=== PATIENT | female | born 1985 | race Caucasian/White ===

== ENCOUNTER 2017-08-10 09:48 | Emergency (ER) | payer OTHER ==
[~2017-08-10] VITALS: Ht 162.6 cm; Wt 107.5 kg
[~2017-08-10 09:48] MED LIST: METF500T4 PO; NITR-58 PO
[2017-08-10 09:55] VITALS: Ht 162.6 cm; Wt 107.5 kg
--- NOTE | 2017-08-10 11:15 | ERD ---
ER Documentation Chief Complaint Chief Complaint left foot wound, after removing callous x 1 week HPI Otherwise healthy 32-year-old female presents with a chief complaints of left lateral foot wound 1 week. States she has no medical conditions. Recently got a primary care provider. States that has been draining yellow fluid without being able to quantify amount. States it also smells. Denies any loss of motion, numbness, tingling, other RPND, similar symptoms in past or sick contacts. Has not taken any medications to relieve the symptoms. Patient has no other complaints and describes no other associated manifestations. Nursing notes have been reviewed and are consistent with history given. ROS All systems reviewed and are negative except as per history of present illness. Medications Home Meds Active Scripts Cephalexin* (Keflex*) 500 Mg Capsule, 500 MG PO QID for 5 Days, CAP Prov:CASSIE LEWIS PA-C 08/10/17 Sulfamethoxazole/Trimethoprim* (Bactrim Ds* Tablet) 1 Each Tablet, 1 TAB PO BID , #14 TAB Prov:CASSIE LEWIS PA-C 08/10/17 Nitrofurantoin Monohyd Macrocr* (Macrobid*) 100 Mg Capsr, 100 MG PO BID for 5 Days, CAP Prov:YESICA BANEGAS. 03/21/15 Metformin* (Glucophage*) 500 Mg Tab, 500 MG PO BID, #20 TAB Prov:YESICA BANEGAS. 03/21/15 Allergies Allergies: Coded Allergies: ibuprofen (Verified Allergy, Unknown, 08/10/17) PMhx/Soc Hx Alcohol Use: Yes (occassional) Hx Substance Use: No Hx Tobacco Use: No Physical Exam Vitals Vital Signs Date Time Temp Pulse Resp B/P Pulse Ox O2 Delivery O2 Flow Rate FiO2 08/10/17 09:55 99.6 118 18 185/88 99 Physical Exam Const: Morbidly obese 32-year-old female no acute distress Head: Atraumatic Eyes: Normal Conjunctiva ENT: Normal External Ears, Nose and Mouth. Neck: Full range of motion..~ No meningismus. Resp: Clear to auscultation bilaterally Cardio: Regular rate and rhythm, no murmurs Abd: Soft, non tender, non distended. Normal bowel sounds Back: No midline or flank tenderness Ext: Black ulcer over the lateral left foot near the MTP. Anterior subcutaneous tissue. Most consistent with diabetic foot ulcer. Yellow drainage. Neur: Awake and alert Psych: Normal Mood and Affect Procedures/MDM 32-year-old female is in today with a chief complaint of ulcer on the left lateral foot near the MTP. X-ray of the site was obtained revealed no evidence of osteomyelitis. No signs of spreading infection. Spoke to my attending who agreed outpatient management with Bactrim and Keflex as most appropriate. Patient will also be referred to amputation prevention center. I have spoke with the patient regarding their condition and future management. They have verbally responded that they understand their status and treatment plan. The patients vitals are stable, and their current condition is appropriate for discharge. The patient will be given discharge instructions with return precautions. Departure Diagnosis: Primary Impression: Diabetic ulcer of foot associated with type 2 diabetes mellitus, limited to breakdown of skin Diabetic foot ulcer location: midfoot Laterality: left Qualified Code: E11.621 - Diabetic ulcer of left midfoot associated with type 2 diabetes mellitus, limited to breakdown of skin Condition: Stable Additional Instructions: Make appointment with amputation prevention center in the next day. Follow up with your PCP within the next 1-3 days for a more thorough evaluation and a possible referral to a specialist. Return the the emergency department immediately if symptoms worsen or change. If you have any questions regarding medications, ask your pharmacist or us before you leave. If any adverse reactions occur while taking your medications, discontinue the treatment and return to the emergency department immediately. Take your medications as directed, and complete the entire course of treatment. CASSIE LEWIS PA-C Aug 10, 2017 11:15
[2017-08-10] MEDS ORDERED: SULF1TAB31 PO (12:32)
[2017-08-10] MEDS ORDERED: CEPH-443 PO (12:32)
--- NOTE | 2017-08-10 12:39 | RADRPT ---
PROCEDURE: XR Left Foot CLINICAL INDICATION: The plantar are surface all certain air fifth MTP TECHNIQUE: AP, oblique, and lateral radiographs were submitted. COMPARISON: None FINDINGS: Osseous structures: appear well mineralized and intact with no fracture or destructive process iden tified. There is a small spur off the calcaneus at the insertion of the plantar aponeurosis. Joint spaces: are well maintained, with no significant spurring, erosion or joint effusion evident. Soft tissues: There is an ulceration with subcutaneous air seen about the distal left fifth metatars al head and proximal phalanx of the left fifth toe. There is dorsal soft tissue swelling. IMPRESSION: 1. Ulceration with subcutaneous air seen in the soft tissues about the distal left fifth metatarsal head and about the proximal phalanx of the left fifth toe. There is considerable dorsal soft tissue swelling. 2. No osseous destruction is identified to suggest osteomyelitis. 3. The joint spaces appear unremarkable 4. See mild calcaneal spurring Physician Megan Date Time Electronically viewed and signed by Physician Megan on 08/10/2017 12:39 /
[2017-08-10 13:28] VITALS: BP 154/68; PULSE 81; RESP 20; TEMP 98.9
== END 2017-08-10 13:28 | disposition home or self-care (01) ==
LOC: FTE 09:48
DX: E11.621 Type 2 diabetes mellitus with foot ulcer (principal); Z79.84 Long term (current) use of oral hypoglycemic drugs

== ENCOUNTER 2017-09-11 12:20 | Emergency (ER) | payer OTHER ==
[~2017-09-11] VITALS: Wt 107.2 kg
[~2017-09-11 12:20] MED LIST changes: +CEPH-443 PO; +SULF1TAB31 PO
[2017-09-11] MEDS ORDERED: LIDOCAINE 1% (MPF) 5 ML VIAL SC ONE (12:30)
--- NOTE | 2017-09-11 12:56 | RADRPT ---
PROCEDURE: XR Chest. CLINICAL INDICATION: PICC line placement TECHNIQUE: Single frontal view of the chest was obtained COMPARISON: None FINDINGS: There is a new right-sided PICC line in place with its tip overlying the mid right subclavian vein r egion.. There is mild cardiomegaly. There is no focal infiltrate. There is no pneumothorax. RPTAT: AA IMPRESSION: New PICC line with its tip overlying the right mid subclavian vein region. Mild cardiomegaly. .Carlos Alberto Durán MD, MD Date Time Electronically viewed and signed by .Carlos Alberto Durán MD, MD on 09/11/2017 12:56 .S/
--- NOTE | 2017-09-11 14:37 | RADRPT ---
PROCEDURE: XR Chest. CLINICAL INDICATION: Check PICC line position. TECHNIQUE: Single frontal view. COMPARISON: 09/11/2017. FINDINGS: There is a right arm PICC line with the tip in the mid superior vena cava. This should be advanced 3 cm. The lungs are clear. The heart is mildly enlarged. There is no pleural effusion. There is no pneumothorax. IMPRESSION: 1. Right arm PICC line tip in the mid superior vena cava. This should be advanced 3 cm. Results giv en to the PICC line nurse. 2. Cardiomegaly. 3. Otherwise normal chest radiograph. RPTAT: QQ .Ronn Tobias MD, MD Date Time Electronically viewed and signed by .Ronn Tobias MD, on 09/11/2017 14:37 .R/
--- NOTE | 2017-09-11 14:45 | RADRPT ---
PROCEDURE: XR Chest. CLINICAL INDICATION: Check PICC line position. The PICC line has been repositioned from the prior study. TECHNIQUE: Single frontal view. COMPARISON: Prior study done earlier the same day. FINDINGS: There is a right arm PICC line with the tip in the lower superior vena cava. The lungs are clear. The heart is mildly enlarged. There is no pleural effusion. There is no pneumothorax. IMPRESSION: 1. Right arm PICC line tip in satisfactory position. 2. Mild cardiomegaly. 3. Otherwise normal chest radiograph. RPTAT: QQ .Ronn Tobias MD, MD Date Time Electronically viewed and signed by .Ronn Tobias MD, MD on 09/11/2017 14:44 .R/
--- NOTE | 2017-09-11 15:10 | ERD ---
ER Documentation Chief Complaint Chief Complaint HERE FOR PICC LINE CHECK . NOT WORKING. POSSIBLE NEEDS REPLACEMENT. HPI Patient is a 32-year-old female who has a PICC line which is not functioning. The patient has a right upper extremity PICC line which was not withdrawing blood. This started yesterday. She was sent to the ER by the visiting nurse. She is currently getting antibiotics for a foot gangrene and has 3 weeks out of 6 weeks completed. She has no other complaints. ROS All systems reviewed and are negative except as per history of present illness. Medications Home Meds Active Scripts Cephalexin* (Keflex*) 500 Mg Capsule, 500 MG PO QID for 5 Days, CAP Prov:CASISE LEWIS PA-C 08/10/17 Sulfamethoxazole/Trimethoprim* (Bactrim Ds* Tablet) 1 Each Tablet, 1 TAB PO BID , #14 TAB Prov:CASSIE LEWIS PA-C 08/10/17 Nitrofurantoin Monohyd Macrocr* (Macrobid*) 100 Mg Capsr, 100 MG PO BID for 5 Days, CAP Prov:YESICA BANEGAS. 03/21/15 Metformin* (Glucophage*) 500 Mg Tab, 500 MG PO BID, #20 TAB Prov:YESICA BANEGAS M. 03/21/15 Allergies Allergies: Coded Allergies: ibuprofen (Verified Allergy, Unknown, 08/10/17) PMhx/Soc Hx Alcohol Use: Yes (occassional) Hx Substance Use: No Hx Tobacco Use: No FmHx Family History: diabetes Physical Exam Vitals Vital Signs Date Time Temp Pulse Resp B/P Pulse Ox O2 Delivery O2 Flow Rate FiO2 09/11/17 12:23 97.5 82 16 141/78 99 Physical Exam Const: No acute distress Head: Atraumatic Eyes: Normal Conjunctiva ENT: Normal External Ears, Nose and Mouth. Neck: Full range of motion..~ No meningismus. Resp: Clear to auscultation bilaterally Cardio: Regular rate and rhythm, no murmurs Abd: Soft, non tender, non distended. Normal bowel sounds Skin: No petechiae or rashes Back: No midline or flank tenderness Ext: PICC line in the right upper extremity Neur: Awake and alert Psych: Normal Mood and Affect Results 24 hrs Current Medications Medications (Trade) Dose Ordered Sig/Stella Route PRN Reason Start Time Stop Time Status Last Admin Dose Admin Lidocaine (Xylocaine 1% (Mpf)) 5 ml ONCE ONCE SC 09/11/17 12:30 09/11/17 12:31 DC Procedures/MDM PICC line was replaced by the PICC nurse. Patient is a 32-year-old female who presents with a PICC line which is nonfunctioning. X-ray showed that the PICC line was in the axillary area. The PICC line nurse replaced the line over a wire. The patient now has a successfully placed PICC line and will be discharged. She can return for any worsening symptoms. Departure Diagnosis: Primary Impression: Occluded PICC line Encounter type: initial encounter Qualified Code: T82.898A - Occlusion of peripherally inserted central catheter (PICC) line, initial encounter Condition: Fair Patient Instructions: Picc Line Care Referrals: Your doctor Additional Instructions: Call your primary care doctor TOMORROW for an appointment during the next 1 WEEK.Tell the social secretary that you were referred from this facility.See the doctor sooner or return here if your condition worsens before your appointment time. PATIENCE CALVERT MD Sep 11, 2017 15:10
[2017-09-11 16:24] VITALS: BP 135/72; PULSE 70; RESP 18; TEMP 98.1
== END 2017-09-11 16:24 | disposition home or self-care (01) ==
LOC: E/R 12:20
DX: T82.898A Other specified complication of vascular prosthetic devices, implants and grafts, initial encounter (principal); R07.9 Chest pain, unspecified; Y82.8 Other medical devices associated with adverse incidents; Z79.84 Long term (current) use of oral hypoglycemic drugs
CPT/HCPCS: 36569; 71010; 93005; 99284; C1769

== ENCOUNTER 2017-11-07 16:18 | Day surgery (SDC) | END 2017-11-07 21:35 | disposition home or self-care (01) ==

== ENCOUNTER 2019-02-22 20:56 | Inpatient (IN) | payer OTHER ==
[~2019-02-22] VITALS: Ht 160 cm; Wt 109.5 kg
[~2019-02-22 20:56] MED LIST changes: +AMLO-147 PO; -CEPH-443 PO; +CLON0.2T12 PERCUTANE; +CLON0.2T5 PO; +FERR1GRA MC; +FURO40TA4 PO; +GLIP2.5T14 PO; +HYDR-3672 PO; +HYDR-4011 PO; +LEVO250T9 PO; -METF500T4 PO; +METO-448 PO; -NITR-58 PO; -SULF1TAB31 PO
[2019-02-22] MEDS ORDERED: METOCLOPRAMIDE 10 MG INJ IV STA (23:09)
[2019-02-22] MEDS ORDERED: morphine 4 MG/ML VIAL IV STA (23:09)
[2019-02-22] MEDS ORDERED: FAMOTIDINE 20 MG INJ IV STA (23:09)
[2019-02-22] MEDS ORDERED: SOD CHLORIDE 0.9% 1,000 ML IV STA (23:09)
[2019-02-23] MEDS ORDERED: SODIUM CHLORIDE 0.9% 1L BAG IV* STA (01:18)
[2019-02-23] MEDS ORDERED: PIPER-TAZO 3.375 GM IV (PMX) 100 ML IVPB STA (01:18)
--- NOTE | 2019-02-23 02:49 | ERD ---
ER Documentation Chief Complaint Chief Complaint nausea/vomiting epigastric pain x2days; unable to take bp medication HPI 34-year-old female with a history of hypertension, CKD stage IV, and diabetes presenting with complaints of epigastric and right upper quadrant pain for the past 2 days. The pain has been constant, aching, nonradiating, associated with nonbloody and nonbilious vomiting. Currently she rates her pain at a 8 out of 10. She denies any diarrhea or constipation. No melena or hematochezia. No associated fevers or chills. No alleviating or exacerbating factors. ROS All systems reviewed and are negative except as per history of present illness. Medications Home Meds Reported Medications Sodium Bicarbonate (Antacid) 650 Mg Tablet, 650 MG PO TID, TAB 02/23/19 Clonidine Patch (CLONIDINE PATCH) 0.2 Mg/24 Hr Patch, 1 PATCH.WK TD Q7D, #4 PATCH.WK 02/23/19 Furosemide* (Furosemide*) 40 Mg Tablet, 40 MG PO DAILY, TAB 02/23/19 Folic Acid* (Folic Acid*) 1 Mg Tablet, 1 MG PO DAILY, TAB 02/23/19 Ergocalciferol (Vitamin D2) (VITAMIN D2) 50,000 Unit Capsule, 74967 UNIT PO Q7D, CAP 02/23/19 Glipizide* (Glipizide ER*) 2.5 Mg Tab.er.24, 2.5 MG PO DAILY, TAB 02/23/19 Hydralazine Hcl* (Hydralazine Hcl*) 100 Mg Tablet, 100 MG PO Q8, #90 TAB 02/23/19 Lisinopril* (Lisinopril*) 2.5 Mg Tablet, 2.5 MG PO DAILY, #30 TAB 02/23/19 Metoprolol Tartrate* (Lopressor*) 50 Mg Tab, 50 MG PO BID, #60 TAB 02/23/19 Discontinued Reported Medications Clonidine Hcl* (Catapres*) 0.2 Mg Tablet, 0.2 MG PERCUTANE DAILY, TAB 11/07/17 Clonidine Hcl* (Clonidine Hcl*) 0.2 Mg Tablet, 0.2 MG PO Q8, TAB 11/07/17 Amlodipine Besylate* (Amlodipine Besylate*) 10 Mg Tablet, 10 MG PO DAILY, #30 TAB 11/07/17 Glipizide XL* (Glipizide XL*) 2.5 Mg Tab.er.24, 2.5 MG PO DAILY, TAB 11/07/17 Hydralazine Hcl* (Hydralazine Hcl*) 50 Mg Tab, 50 MG PO Q8 PRN for prn, #90 TAB 11/07/17 Ferric Sulfate (FERRIC SULFATE) 1 Gm Granules, 325 MG MC TID 11/07/17 Levofloxacin* (Levofloxacin*) 250 Mg Tablet, 250 MG PO DAILY, TAB 11/07/17 Hydrocodone/Acetaminophen ([place] 5-325 Tablet) 1 Each Tablet, 1 EACH PO Q6H PRN for prn, TAB 11/07/17 Furosemide* (Furosemide*) 40 Mg Tablet, 40 MG PO DAILY, TAB 11/07/17 Metoprolol Tartrate* (Lopressor*) 25 Mg Tab, 25 MG PO BID, #60 TAB 11/07/17 Allergies Allergies: Coded Allergies: ibuprofen (Unverified Allergy, Unknown, 02/23/19) PMhx/Soc History of Surgery: Yes Anesthesia Reaction: No Hx Neurological Disorder: No Hx Respiratory Disorders: No Hx Cardiac Disorders: Yes (htn) Hx Psychiatric Problems: No Hx Miscellaneous Medical Probl: Yes (anemia, diabetes type 2, stage 4 chronic kidney ds) Hx Alcohol Use: No Hx Substance Use: No Hx Tobacco Use: No Smoking Status: Never smoker FmHx Noncontributory Physical Exam Vitals Vital Signs Date Temp Pulse Resp B/P (MAP) Pulse Ox O2 O2 Flow FiO2 Time Delivery Rate 02/23/19 201/104 98 Room Air 02:49 (136) 02/23/19 108 197/102 98 Room Air 02:00 (133) 02/23/19 107 203/101 98 Room Air 01:40 (135) 02/23/19 99.0 102 200/107 98 Room Air 01:00 (138) 02/23/19 103 204/101 98 Room Air 00:00 (135) 02/22/19 99.1 107 22 224/113 97 21:35 (150) Physical Exam Const: No acute distress Head: Atraumatic Eyes: Normal Conjunctiva ENT: Dry mucous membranes. Normal External Ears, Nose and Mouth. Neck: Full range of motion. No meningismus. Resp: Clear to auscultation bilaterally Cardio: Regular rate and rhythm, no murmurs Abd: Epigastric and right upper quadrant tenderness to palpation with positive Wilkes's. Soft,non distended. Normal bowel sounds Skin: No petechiae or rashes Back: No midline or flank tenderness Ext: No cyanosis, or edema Neur: Awake and alert Psych: Normal Mood and Affect Result Diagram: 02/24/19 0543 02/24/19 0543 Results 24 hrs Laboratory Tests Test 02/22/19 22:57 02/22/19 23:10 02/23/19 01:36 White Blood Count 13.7 10^3/ul Red Blood Count 4.56 10^6/ul Hemoglobin 12.3 g/dl Hematocrit 37.9 % Mean Corpuscular Volume 83.1 fl Mean Corpuscular Hemoglobin 27.0 pg Mean Corpuscular 32.5 g/dl Hemoglobin Concent Red Cell Distribution Width 21.8 % Platelet Count 470 10^3/UL Mean Platelet Volume 10.7 fl Immature Granulocytes % 0.300 % Neutrophils % 86.1 % Lymphocytes % 6.9 % Monocytes % 6.0 % Eosinophils % 0.0 % Basophils % 0.7 % Nucleated Red Blood Cells % 0.0 /100WBC Immature Granulocytes # 0.040 10^3/ul Neutrophils # 11.8 10^3/ul Lymphocytes # 0.9 10^3/ul Monocytes # 0.8 10^3/ul Eosinophils # 0.0 10^3/ul Basophils # 0.1 10^3/ul Nucleated Red Blood Cells # 0.0 10^3/ul Sodium Level 142 mmol/L Potassium Level 4.4 mmol/L Chloride Level 108 mmol/L Carbon Dioxide Level 27 mmol/L Anion Gap 7 Blood Urea Nitrogen 32 mg/dl Creatinine 3.26 mg/dl Est Glomerular Filtrat Rate mL/min 16 mL/min Glucose Level 141 mg/dl Calcium Level 9.2 mg/dl Total Bilirubin 0.3 mg/dl Direct Bilirubin 0.00 mg/dl Indirect Bilirubin 0.3 mg/dl Aspartate Amino Transf (AST/SGOT) 50 IU/L Alanine 50 IU/L Aminotransferase (ALT/SGPT) Alkaline Phosphatase 140 IU/L Troponin I 0.047 ng/ml Total Protein 6.9 g/dl Albumin 3.6 g/dl Globulin 3.30 g/dl Albumin/Globulin Ratio 1.09 Lipase 86 U/L Bedside Urine pH (LAB) 8.5 Bedside Urine Protein (LAB) 3+ Bedside Urine Glucose (UA) 0.50% Bedside Urine Ketones (LAB) 1+ Bedside Urine Blood 3+ Bedside Urine Nitrite (LAB) Negative Bedside Urine Leukocyte Esterase Negative (L POC Venous Lactate 0.7 mmol/L Current Medications Medications Dose Sig/Stella Start Time Status Last (Trade) Ordered Route PRN Stop Time Admin Dose Reason Admin Sodium 1,000 ml @ Q1H STAT 02/22/19 DC 02/22/19 Chloride 1,000 mls/hr IV 23:09 23:29 02/23/19 00:08 Morphine 4 mg ONCE STAT 02/22/19 DC 02/22/19 Sulfate IV 23: 23:29 (morphine) 02/22/19 23:13 10 mg ONCE STAT 02/22/19 DC 02/22/19 Metoclopramid IV 23: 23:29 e HCl 02/22/19 23:13 (Reglan) Famotidine 20 mg ONCE STAT 02/22/19 DC 02/22/19 (Pepcid Iv) IV 23:09 23:29 02/22/19 23:14 Sodium 570 ml BOLUS OVER 2 02/23/19 DC 02/23/19 Chloride HOURS STAT 01:18 01:43 (NS) IV* 02/23/19 01:20 Piperacillin 100 ml @ ONCE STAT 02/23/19 DC 02/23/19 Sod/ 200 mls/hr IVPB 01:18 01:43 Tazobactam 02/23/19 01:47 Sod Procedures/MDM EMERGENT LABS AND DIAGNOSTIC STUDIES: Lab Results above were reviewed and interpreted by me. CBC: Mild leukocytosis and thrombocytosis, concerning for infection CMP: Elevated BUN and creatinine, consistent with chronic kidney disease. No evidence of clinically significant electrolyte abnormality, acidosis, hypoglycemia, liver disease, or biliary obstruction Lipase: no evidence of pancreatitis UA: no evidence of infection 12-lead EKG was interpreted by Mickey Miguel MD: Normal Sinus Rhythm Normal axis Normal intervals No acute ST or T wave changes suggestive of acute ischemia or STEMI. Radiology Results as interpreted by Radiology below were reviewed by Marc Miguel MD: Ultrasound right upper quadrant: Evidence of cholelithiasis with possible cholecystitis Initial Nursing notes reviewed. Previous Medical Records requested via the Electronic Health Record. EMERGENCY DEPARTMENT COURSE / MEDICAL DECISION MAKING: Patient is presenting with epigastric and right upper quadrant pain with associated vomiting for the past few days. This is less likely gastroenteritis that she has no diarrhea. Differential does include cholelithiasis, acute cholecystitis, pancreatitis, colitis, or gastritis. Doubt bowel obstruction or perforated viscus. Patient was noted to be very hypertensive for which IV antihypertensives were given. Her work-up was concerning for possible acute cholecystitis. I spoke with the surgeon on-call, Dr. Tena, who agreed to see the patient. Patient will be admitted for surgical consult and hypertension control. Of note patient did meet Sirs criteria and possible sepsis was recognized at 0118. However lactate was ordered and was within normal limits. No evidence of severe sepsis or septic shock. Patient did receive IV fluids, IV antibiotics. Departure Diagnosis: Primary Impression: Epigastric abdominal pain Additional Impressions: Nausea and vomiting Vomiting type: unspecified Vomiting Intractability: non-intractable Qualified Codes: R11.2 - Nausea with vomiting, unspecified CKD (chronic kidney disease) Chronic kidney disease stage: stage 4 (severe) Qualified Codes: N18.4 - Chronic kidney disease, stage 4 (severe) Condition: Serious ERICKSON MIGUEL MD February 23, 2019 02:49
[2019-02-23] MEDS ORDERED: LABETALOL HCL 20MG INJ IV ONE ×2 (03:00→06:00)
[2019-02-23] MEDS ORDERED: ACETAMINOPHEN 325 MG TAB PO PRN (03:00)
[2019-02-23] MEDS: ONDANSETRON 4 MG INJ IV PRN ×4 (03:27→19:15)
[2019-02-23] MEDS ORDERED: DEXTROSE 5%-0.45% NACL 1,000 ML IV SCH (03:39)
[2019-02-23] MEDS ORDERED: morphine 4 MG/ML VIAL IV STA (03:43)
[2019-02-23] MEDS ORDERED: NACL 0.9% 3 ML SYG IV SCH (04:00)
[2019-02-23] MEDS ORDERED: GLUCAGON 1 MG INJ IM PRN ×2 (04:00→09:00)
[2019-02-23] MEDS ORDERED: DEXTROSE 50% 50 ML SYRINGE IV PRN ×4 (04:00→09:00)
[2019-02-23] MEDS ORDERED: GLUCOSE GEL 15 GRAM TUBE PO PRN ×4 (04:00→09:00)
[2019-02-23] MEDS ORDERED: GLUCOSE GEL 15 GRAM TUBE BUCCAL PRN ×2 (04:00→09:00)
[2019-02-23] MEDS ORDERED: ACETAMINOPHEN 650 MG SUPP PR PRN (04:00)
[2019-02-23] MEDS ORDERED: ALBUTEROL/IPRATROPIUM (NEB) 3 ML AMP HHN PRN (04:00)
[2019-02-23] MEDS ORDERED: PIPER-TAZO 3.375 GM IV (PMX) 100 ML IVPB SCH (04:00)
[2019-02-23] MEDS ORDERED: morphine 2 MG INJ IV PRN (04:00)
[2019-02-23] MEDS ORDERED: hydrALAzine 20 MG INJ IV ONE ×2 (04:00→06:00)
--- NOTE | 2019-02-23 05:45 | HP ---
Date/Time of Note Date/Time of Note DATE: 02/23/19 TIME: 05:40 Assessment/Plan VTE Prophylaxis SCD applied (from Nsg): Yes Pharmacological prophylaxis: NA/contraindicated Pharm contraindication: other (Awaiting possible laparoscopic cholecystectomy) Lines/Catheters IV Catheter Type (from Nrsg): Saline Lock Assessment/Plan Assessment/Plan 1. Cholelithiasis with possible cholecystitis -IV antibiotic -Consider HIDA -Awaiting surgical evaluation 2. Hypertensive urgency: Patient was unable to keep her medications down because of vomiting. -Will continue IV antihypertensives. If unable to control, she will be placed on drip and admitted to ICU 3. SIRS, tachycardia: Secondary to above 4. Presumed acute on CKD: Patient states she was diagnosed with kidney disease 2 years ago. Because for the past few days she has been vomiting again unable to eat, I am suspecting acute on chronic -Continue IV fluid -If no improvement in a.m., will obtain renal ultrasound and nephrology consult 5. Type 2 diabetes: Check A1c. Insulin while in-house 6. Left fifth toe amputation secondary to osteomyelitis: No acute issue Result Diagram: 02/22/19225602/22/197 Results 24hrs Laboratory Tests Test 02/22/19 22:57 02/22/19 23:10 02/23/19 01:36 02/23/19 03:59 White Blood Count 13.7 H Red Blood Count 4.56 Hemoglobin 12.3 Hematocrit 37.9 Mean Corpuscular 83.1 Volume Mean Corpuscular 27.0 L Hemoglobin Mean Corpuscular 32.5 Hemoglobin Concent Red Cell 21.8 #H Distribution Width Platelet Count 470 H Mean Platelet Volume 10.7 H Immature 0.300 Granulocytes % Neutrophils % 86.1 H Lymphocytes % 6.9 L Monocytes % 6.0 Eosinophils % 0.0 Basophils % 0.7 Nucleated Red Blood 0.0 Cells % Immature 0.040 H Granulocytes # Neutrophils # 11.8 H Lymphocytes # 0.9 Monocytes # 0.8 Eosinophils # 0.0 Basophils # 0.1 Nucleated Red Blood 0.0 Cells # Sodium Level 142 Potassium Level 4.4 Chloride Level 108 Carbon Dioxide Level 27 Anion Gap 7 Blood Urea Nitrogen 32 H Creatinine 3.26 H Est Glomerular 16 L Filtrat Rate mL/min Glucose Level 141 Calcium Level 9.2 Total Bilirubin 0.3 Direct Bilirubin 0.00 Indirect Bilirubin 0.3 Aspartate Amino 50 H Transf (AST/SGOT) Alanine 50 Aminotransferase (AL T/SGPT) Alkaline Phosphatase 140 H Troponin I 0.047 Total Protein 6.9 Albumin 3.6 Globulin 3.30 H Albumin/Globulin 1.09 Ratio Lipase 86 Bedside Urine pH 8.5 7.5 (LAB) Bedside Urine 3+ H 3+ H Protein (LAB) Bedside Urine 0.50% H 0.25% H Glucose (UA) Bedside Urine 1+ H Trace H Ketones (LAB) Bedside Urine Blood 3+ H 2+ H Bedside Urine Negative Negative Nitrite (LAB) Bedside Urine Negative Negative Leukocyte Esterase (L POC Venous Lactate 0.7 HPI/ROS Admit Date/Time Admit Date/Time Hx of Present Illness Patient is a 34-year-old female with a history of hypertension, type 2 diabetes who presented to ER complaining of abdominal pain and nausea/vomiting. Pain is mainly localized in the epigastric area. Symptoms been going on for the past 2- 3 days. She was unable to eat because of vomiting, with emesis described as nonbloody nonbilious. Since presented to ER, blood pressure has been persistently severely elevated, despite intervention. WBC almost 14,000. Liver chemistries within acceptable range. Abdominal ultrasound shows Cholelithiasis and findings compatible with acute cholecystitis PMH/Family/Social Past Medical History Medical History: other (See HPI) Medications Current Medications Ondansetron HCl (Zofran Inj) 4 mg BRIDGE ORDER PRN IV NAUSEA/VOMITING Last administered on 02/23/19at 03:27; Admin Dose 4 MG; Start 02/23/19 at 03:00; Stop 02/24/19 at 02:59 Acetaminophen (Tylenol Tab) 650 mg ER BRIDGE PRN PO .MILD PAIN 1-3 OR TEMP; Start 02/23/19 at 03:00; Stop 02/24/19 at 02:59 Dextrose/Sodium Chloride 1,000 ml @ 100 mls/hr Q10H IV Last administered on 02/23/19at 04:09; Admin Dose 100 MLS/HR; Start 02/23/19 at 03:39 IV Flush (NS 3 ml) 3 ml PER PROTOCOL IV ; Start 02/23/19 at 04:00 Ondansetron HCl (Zofran Inj) 4 mg Q6H PRN IV NAUSEA/VOMITING; Start 02/23/19 at 04:00 Acetaminophen (Tylenol Supp) 650 mg Q6H PRN NM .PAIN 1-3 OR TEMP; Start 02/23/19 at 04:00 Morphine Sulfate (morphine) 2 mg Q4H PRN IV .SEVERE PAIN 7-10; Start 02/23/19 at 04:00 Albuterol/ Ipratropium (Duoneb) 3 ml Q2H RESP THERAPY PRN HHN SHORTNESS OF BREATH; Start 02/23/19 at 04:00 Hydralazine HCl (Apresoline) 10 mg Q4H PRN IV SBP > 160; Start 02/23/19 at 04:00 Piperacillin Sod/ Tazobactam Sod 50 ml @ 100 mls/hr Q8 IVPB ; Start 02/23/19 at 06:00 Diagnostic Test (Pha) (Accu-Chek) 1 ea 02 XX ; Start 02/24/19 at 02:00 Insulin Aspart (Novolog Insulin Pen) NOVOLOG *MILD* ALGORITHM WITH MEALS BEDTIME SC ; Start 02/23/19 at 08:00 Miscellaneous Information 1 ea NOTE XX ; Start 02/23/19 at 04:00 Glucose (Glutose) 15 gm Q15M PRN PO DECREASED GLUCOSE; Start 02/23/19 at 04:00 Glucose (Glutose) 22.5 gm Q15M PRN PO DECREASED GLUCOSE; Start 02/23/19 at 04:00 Dextrose (D50w Syringe) 25 ml Q15M PRN IV DECREASED GLUCOSE; Start 02/23/19 at 04:00 Dextrose (D50w Syringe) 50 ml Q15M PRN IV DECREASED GLUCOSE; Start 02/23/19 at 04:00 Glucagon (Glucagen) 1 mg Q15M PRN IM DECREASED GLUCOSE; Start 02/23/19 at 04:00 Glucose (Glutose) 15 gm Q15M PRN BUCCAL DECREASED GLUCOSE; Start 02/23/19 at 04:00 Coded Allergies: ibuprofen (Unverified Allergy, Unknown, 02/23/19) Past Surgical History Past Surgical Hx: other (See HPI) Family History Significant Family History: no pertinent family hx Social History Alcohol Use: none Smoking Status: Never smoker Drug Use: none Exam/Review of Systems Vital Signs Vitals Vital Signs Date Temp Pulse Resp B/P (MAP) Pulse Ox O2 O2 Flow FiO2 Time Delivery Rate 02/23/19 201/104 98 Room Air 02:49 (136) 02/23/19 108 02:00 02/23/19 99.0 01:00 02/22/19 22 21:35 Exam Constitutional: alert, oriented, well developed Head: normocephalic, atraumatic Eyes: EOMI, PERRL Respiratory: clear to auscultation, normal air movement Cardiovascular: other (Tachycardic regular rhythm) Gastrointestinal: soft, other (Minimal tenderness in the right upper quadrant and epigastric area. No guarding, no rebound tenderness, no rigidity) Extremities: normal pulses STACIE BENNETT MD February 23, 2019 05:45
[2019-02-23] MEDS ORDERED: LABETALOL HCL 20MG INJ IV PRN (06:00)
[2019-02-23] MEDS: PIPER-TAZO 2.25 GM (PMX) 50 ML IVPB SCH ×3 (06:48→22:21)
[2019-02-23] MEDS ORDERED: INSULIN ASPART [NOVOLOG] 3 ML PEN SC SCH (08:00)
--- NOTE | 2019-02-23 08:43 | PN ---
Date/Time of Note Date/Time of Note DATE: 02/23/19 TIME: 08:38 Assessment/Plan VTE Prophylaxis SCD applied (from Nsg): Yes Pharmacological prophylaxis: heparin Lines/Catheters IV Catheter Type (from Nrsg): Saline Lock Assessment/Plan Problems: (1) SIRS (systemic inflammatory response syndrome) Status: Acute Comment: On antibiotics and being driven by gallbladder stuff (2) Acute cholecystitis Status: Acute Comment: At this time a surgical consultation. We will go ahead and order the HIDA scan so that we will be trying to maximize her efficiency with the patient's time. She is on aggressive antibiotic therapy at this time and is clinically modestly better. Please note that this presentation was consistent w ith systemic inflammatory response syndrome (3) Hypertension Status: Chronic Comment: Patient was recently placed on lisinopril but she has been able to take this due to her nausea and vomiting. Can go ahead and use IV enalapril at this time to help control the blood pressure. Qualifiers: Hypertension type: essential hypertension Qualified Codes: I10 - Essential (primary) hypertension (4) Anemia Status: Chronic Comment: Check for iron deficiency Qualifiers: Anemia type: unspecified type Qualified Codes: D64.9 - Anemia, unspecified (5) Diabetes mellitus type 2 in obese Status: Chronic Comment: O2 and insulin sliding scale while the patient's in the hospital. Please note the usage of the glipizide and the patient with renal insufficiency can be a little bit aggressive (6) Kidney disease, chronic, stage IV (GFR 15-29 ml/min) Status: Chronic Comment: Noted. (7) Morbid obesity with BMI of 40.0-44.9, adult Status: Chronic Comment: N.p.o. for now ultimately be on a calorie restriction diet Result Diagram: 02/23/19 0538 02/23/19 0537 Results 24hrs Laboratory Tests Test 02/22/19 22:57 02/22/19 23:10 02/23/19 01:36 02/23/19 03:59 White Blood Count 13.7 H Red Blood Count 4.56 Hemoglobin 12.3 Hematocrit 37.9 Mean Corpuscular 83.1 Volume Mean Corpuscular 27.0 L Hemoglobin Mean Corpuscular 32.5 Hemoglobin Concent Red Cell 21.8 #H Distribution Width Platelet Count 470 H Mean Platelet Volume 10.7 H Immature 0.300 Granulocytes % Neutrophils % 86.1 H Lymphocytes % 6.9 L Monocytes % 6.0 Eosinophils % 0.0 Basophils % 0.7 Nucleated Red Blood 0.0 Cells % Immature 0.040 H Granulocytes # Neutrophils # 11.8 H Lymphocytes # 0.9 Monocytes # 0.8 Eosinophils # 0.0 Basophils # 0.1 Nucleated Red Blood 0.0 Cells # Sodium Level 142 Potassium Level 4.4 Chloride Level 108 Carbon Dioxide Level 27 Anion Gap 7 Blood Urea Nitrogen 32 H Creatinine 3.26 H Est Glomerular 16 L Filtrat Rate mL/min Glucose Level 141 Calcium Level 9.2 Total Bilirubin 0.3 Direct Bilirubin 0.00 Indirect Bilirubin 0.3 Aspartate Amino 50 H Transf (AST/SGOT) Alanine 50 Aminotransferase (AL T/SGPT) Alkaline Phosphatase 140 H Troponin I 0.047 Total Protein 6.9 Albumin 3.6 Globulin 3.30 H Albumin/Globulin 1.09 Ratio Lipase 86 Bedside Urine pH 8.5 7.5 (LAB) Bedside Urine 3+ H 3+ H Protein (LAB) Bedside Urine 0.50% H 0.25% H Glucose (UA) Bedside Urine 1+ H Trace H Ketones (LAB) Bedside Urine Blood 3+ H 2+ H Bedside Urine Negative Negative Nitrite (LAB) Bedside Urine Negative Negative Leukocyte Esterase (L POC Venous Lactate 0.7 Test 02/23/19 05:37 02/23/19 05:38 Sodium Level 140 Potassium Level 3.8 Chloride Level 112 H Carbon Dioxide Level 22 Anion Gap 6 Blood Urea Nitrogen 28 H Creatinine 2.69 H Est Glomerular 20 L Filtrat Rate mL/min Glucose Level 230 H Calcium Level 7.7 L Phosphorus Level 4.7 Magnesium Level 1.8 Total Bilirubin 0.2 Direct Bilirubin 0.00 Indirect Bilirubin 0.2 Aspartate Amino 40 Transf (AST/SGOT) Alanine 43 Aminotransferase (AL T/SGPT) Alkaline Phosphatase 99 Total Protein 5.4 #L Albumin 2.6 #L Globulin 2.80 Albumin/Globulin 0.92 Ratio Triglycerides Level 118 Cholesterol Level 170 LDL Cholesterol, 103 Calculated HDL Cholesterol 43 Cholesterol/HDL 3.9 Ratio White Blood Count 12.7 H Red Blood Count 3.69 L Hemoglobin 10.0 L Hematocrit 31.2 L Mean Corpuscular 84.6 Volume Mean Corpuscular 27.1 L Hemoglobin Mean Corpuscular 32.1 Hemoglobin Concent Red Cell 21.4 H Distribution Width Platelet Count 386 Mean Platelet Volume 11.0 H Immature 0.600 H Granulocytes % Neutrophils % 84.3 H Lymphocytes % 8.3 L Monocytes % 6.0 Eosinophils % 0.1 Basophils % 0.7 Nucleated Red Blood 0.0 Cells % Immature 0.070 H Granulocytes # Neutrophils # 10.7 H Lymphocytes # 1.1 Monocytes # 0.8 Eosinophils # 0.0 Basophils # 0.1 Nucleated Red Blood 0.0 Cells # Hemoglobin A1c 5.6 Subjective 24 Hr Interval Summary Free Text/Dictation Angelica young female seen in the emergency room who reports that she is feeling better. Please note she identifies that she is at the very tail end of her menstrual cycle at this time. Her primary care physician is Dr. Lula Saab of [facility], she sees a petrologist Dr. Laura Escalona. Constitutional: no complaints (No fevers chills or sweats) Eyes: no complaints Cardiovascular: no complaints Gastrointestinal: pain (Upper quadrant pain has improved with analgesia), nausea (Nausea has diminished) Genitourinary: no complaints Skin: no complaints Exam/Review of Systems Exam Vitals Vital Signs Date Temp Pulse Resp B/P (MAP) Pulse Ox O2 O2 Flow FiO2 Time Delivery Rate 02/23/19 98.2 91 18 155/79 99 Room Air 08:00 (104) Constitutional: alert, oriented Neck: supple, non-tender Respiratory: clear to auscultation, normal air movement Cardiovascular: regular rate and rhythm, nl pulses Gastrointestinal: soft, nl liver, spleen (No right upper quadrant tenderness after IV analgesia), bowel sounds (Hypoactive bowel sounds) Extremities: normal pulses Results Results 24hrs Laboratory Tests Test 02/22/19 22:57 02/22/19 23:10 02/23/19 01:36 02/23/19 03:59 White Blood Count 13.7 H Red Blood Count 4.56 Hemoglobin 12.3 Hematocrit 37.9 Mean Corpuscular 83.1 Volume Mean Corpuscular 27.0 L Hemoglobin Mean Corpuscular 32.5 Hemoglobin Concent Red Cell 21.8 #H Distribution Width Platelet Count 470 H Mean Platelet Volume 10.7 H Immature 0.300 Granulocytes % Neutrophils % 86.1 H Lymphocytes % 6.9 L Monocytes % 6.0 Eosinophils % 0.0 Basophils % 0.7 Nucleated Red Blood 0.0 Cells % Immature 0.040 H Granulocytes # Neutrophils # 11.8 H Lymphocytes # 0.9 Monocytes # 0.8 Eosinophils # 0.0 Basophils # 0.1 Nucleated Red Blood 0.0 Cells # Sodium Level 142 Potassium Level 4.4 Chloride Level 108 Carbon Dioxide Level 27 Anion Gap 7 Blood Urea Nitrogen 32 H Creatinine 3.26 H Est Glomerular 16 L Filtrat Rate mL/min Glucose Level 141 Calcium Level 9.2 Total Bilirubin 0.3 Direct Bilirubin 0.00 Indirect Bilirubin 0.3 Aspartate Amino 50 H Transf (AST/SGOT) Alanine 50 Aminotransferase (AL T/SGPT) Alkaline Phosphatase 140 H Troponin I 0.047 Total Protein 6.9 Albumin 3.6 Globulin 3.30 H Albumin/Globulin 1.09 Ratio Lipase 86 Bedside Urine pH 8.5 7.5 (LAB) Bedside Urine 3+ H 3+ H Protein (LAB) Bedside Urine 0.50% H 0.25% H Glucose (UA) Bedside Urine 1+ H Trace H Ketones (LAB) Bedside Urine Blood 3+ H 2+ H Bedside Urine Negative Negative Nitrite (LAB) Bedside Urine Negative Negative Leukocyte Esterase (L POC Venous Lactate 0.7 Test 02/23/19 05:37 02/23/19 05:38 Sodium Level 140 Potassium Level 3.8 Chloride Level 112 H Carbon Dioxide Level 22 Anion Gap 6 Blood Urea Nitrogen 28 H Creatinine 2.69 H Est Glomerular 20 L Filtrat Rate mL/min Glucose Level 230 H Calcium Level 7.7 L Phosphorus Level 4.7 Magnesium Level 1.8 Total Bilirubin 0.2 Direct Bilirubin 0.00 Indirect Bilirubin 0.2 Aspartate Amino 40 Transf (AST/SGOT) Alanine 43 Aminotransferase (AL T/SGPT) Alkaline Phosphatase 99 Total Protein 5.4 #L Albumin 2.6 #L Globulin 2.80 Albumin/Globulin 0.92 Ratio Triglycerides Level 118 Cholesterol Level 170 LDL Cholesterol, 103 Calculated HDL Cholesterol 43 Cholesterol/HDL 3.9 Ratio White Blood Count 12.7 H Red Blood Count 3.69 L Hemoglobin 10.0 L Hematocrit 31.2 L Mean Corpuscular 84.6 Volume Mean Corpuscular 27.1 L Hemoglobin Mean Corpuscular 32.1 Hemoglobin Concent Red Cell 21.4 H Distribution Width Platelet Count 386 Mean Platelet Volume 11.0 H Immature 0.600 H Granulocytes % Neutrophils % 84.3 H Lymphocytes % 8.3 L Monocytes % 6.0 Eosinophils % 0.1 Basophils % 0.7 Nucleated Red Blood 0.0 Cells % Immature 0.070 H Granulocytes # Neutrophils # 10.7 H Lymphocytes # 1.1 Monocytes # 0.8 Eosinophils # 0.0 Basophils # 0.1 Nucleated Red Blood 0.0 Cells # Hemoglobin A1c 5.6 Medications Medication Current Medications Ondansetron HCl (Zofran Inj) 4 mg BRIDGE ORDER PRN IV NAUSEA/VOMITING Last administered on 02/23/19at 07:32; Admin Dose 4 MG; Start 02/23/19 at 03:00; Stop 02/24/19 at 02:59 Acetaminophen (Tylenol Tab) 650 mg ER BRIDGE PRN PO .MILD PAIN 1-3 OR TEMP; Start 02/23/19 at 03:00; Stop 02/24/19 at 02:59 Dextrose/Sodium Chloride 1,000 ml @ 100 mls/hr Q10H IV Last administered on 02/23/19at 04:09; Admin Dose 100 MLS/HR; Start 02/23/19 at 03:39 IV Flush (NS 3 ml) 3 ml PER PROTOCOL IV ; Start 02/23/19 at 04:00 Ondansetron HCl (Zofran Inj) 4 mg Q6H PRN IV NAUSEA/VOMITING; Start 02/23/19 at 04:00 Acetaminophen (Tylenol Supp) 650 mg Q6H PRN OR .PAIN 1-3 OR TEMP; Start 02/23/19 at 04:00 Morphine Sulfate (morphine) 2 mg Q4H PRN IV .SEVERE PAIN 7-10; Start 02/23/19 at 04:00 Albuterol/ Ipratropium (Duoneb) 3 ml Q2H RESP THERAPY PRN HHN SHORTNESS OF BREATH; Start 02/23/19 at 04:00 Hydralazine HCl (Apresoline) 10 mg Q4H PRN IV SBP > 160; Start 02/23/19 at 04:00 Piperacillin Sod/ Tazobactam Sod 50 ml @ 100 mls/hr Q8 IVPB Last administered on 02/23/19at 06:48; Admin Dose 100 MLS/HR; Start 02/23/19 at 06:00 Diagnostic Test (Pha) (Accu-Chek) 1 ea 02 XX ; Start 02/24/19 at 02:00 Insulin Aspart (Novolog Insulin Pen) NOVOLOG *MILD* ALGORITHM WITH MEALS BEDTIME SC ; Start 02/23/19 at 08:00 Miscellaneous Information 1 ea NOTE XX ; Start 02/23/19 at 04:00 Glucose (Glutose) 15 gm Q15M PRN PO DECREASED GLUCOSE; Start 02/23/19 at 04:00 Glucose (Glutose) 22.5 gm Q15M PRN PO DECREASED GLUCOSE; Start 02/23/19 at 04:00 Dextrose (D50w Syringe) 25 ml Q15M PRN IV DECREASED GLUCOSE; Start 02/23/19 at 04:00 Dextrose (D50w Syringe) 50 ml Q15M PRN IV DECREASED GLUCOSE; Start 02/23/19 at 04:00 Glucagon (Glucagen) 1 mg Q15M PRN IM DECREASED GLUCOSE; Start 02/23/19 at 04:00 Glucose (Glutose) 15 gm Q15M PRN BUCCAL DECREASED GLUCOSE; Start 02/23/19 at 04:00 Labetalol HCl (Labetalol) 20 mg Q2H PRN IV SBP > 170; Start 02/23/19 at 06:00 DONOVAN DOVER MD February 23, 2019 08:43
[2019-02-23] MEDS: LACTATED RINGER'S 1,000 ML IV SCH ×2 (08:53→21:30)
[2019-02-23] MEDS: ENALAPRILAT 1.25 MG INJ IV SCH ×3 (08:54→22:20)
[2019-02-23] MEDS: INSULIN GLARGINE [LANTus] (100 UNITS/ML) SYG SC SCH (09:25)
[2019-02-23] MEDS: ACCU-CHEK XX SCH ×4 (09:25→20:41)
[2019-02-23] MEDS ORDERED: LISI2.5T59 PO (10:08)
[2019-02-23] MEDS ORDERED: METO-429 PO (10:08)
[2019-02-23] MEDS ORDERED: GLIP2.5T3 PO (10:09)
[2019-02-23] MEDS ORDERED: HYDR100T25 PO (10:09)
[2019-02-23] MEDS ORDERED: ERGO500013 PO (10:10)
[2019-02-23] MEDS ORDERED: FOLI-49 PO (10:10)
[2019-02-23] MEDS ORDERED: FURO40TA4 PO (10:10)
[2019-02-23] MEDS ORDERED: CLON1PAT2 TD (10:11)
[2019-02-23] MEDS ORDERED: SODI650T PO (10:11)
[2019-02-23] MEDS: hydrALAzine 20 MG INJ IV PRN ×2 (11:35→20:39)
[2019-02-23] MEDS: INSULIN ASPART [NOVOLOG] 3 ML PEN SC SCH ×5 (12:00→20:44)
[2019-02-23 13:26] VITALS: Ht 160 cm; Wt 109.5 kg
[2019-02-23 13:30] VITALS: BP 179/87; PULSE 109; RESP 18
--- NOTE | 2019-02-23 19:53 | CONS ---
Assessment/Plan Assessment/Plan Hospital Course (Demo Recall) 1. Cholelithiasis with questionable cholecystitis (no pericholecystic fluid, no gallbladder wall edema). HIDA negative for cholecystitis but positive for CBD obstruction -GI consult for ERCP -Antibiotics -N.p.o. -IV fluids Thank you very much for consulting me this patient's care, Consultation Date/Type/Reason Admit Date/Time Date of Consultation: February 23, 2019 Date/Time of Note DATE: 02/23/19 TIME: 19:52 Past Medical History Medical History: other (See HPI) Home Meds Reported Medications Sodium Bicarbonate (Antacid) 650 Mg Tablet, 650 MG PO TID, TAB 02/23/19 Clonidine Patch (CLONIDINE PATCH) 0.2 Mg/24 Hr Patch, 1 PATCH.WK TD Q7D, #4 PATCH.WK 02/23/19 Furosemide* (Furosemide*) 40 Mg Tablet, 40 MG PO DAILY, TAB 02/23/19 Folic Acid* (Folic Acid*) 1 Mg Tablet, 1 MG PO DAILY, TAB 02/23/19 Ergocalciferol (Vitamin D2) (VITAMIN D2) 50,000 Unit Capsule, 66910 UNIT PO Q7D, CAP 02/23/19 Glipizide* (Glipizide ER*) 2.5 Mg Tab.er.24, 2.5 MG PO DAILY, TAB 02/23/19 Hydralazine Hcl* (Hydralazine Hcl*) 100 Mg Tablet, 100 MG PO Q8, #90 TAB 02/23/19 Lisinopril* (Lisinopril*) 2.5 Mg Tablet, 2.5 MG PO DAILY, #30 TAB 02/23/19 Metoprolol Tartrate* (Lopressor*) 50 Mg Tab, 50 MG PO BID, #60 TAB 02/23/19 Discontinued Reported Medications Clonidine Hcl* (Catapres*) 0.2 Mg Tablet, 0.2 MG PERCUTANE DAILY, TAB 11/07/17 Clonidine Hcl* (Clonidine Hcl*) 0.2 Mg Tablet, 0.2 MG PO Q8, TAB 11/07/17 Amlodipine Besylate* (Amlodipine Besylate*) 10 Mg Tablet, 10 MG PO DAILY, #30 TAB 11/07/17 Glipizide XL* (Glipizide XL*) 2.5 Mg Tab.er.24, 2.5 MG PO DAILY, TAB 11/07/17 Hydralazine Hcl* (Hydralazine Hcl*) 50 Mg Tab, 50 MG PO Q8 PRN for prn, #90 TAB 11/07/17 Ferric Sulfate (FERRIC SULFATE) 1 Gm Granules, 325 MG MC TID 11/07/17 Levofloxacin* (Levofloxacin*) 250 Mg Tablet, 250 MG PO DAILY, TAB 11/07/17 Hydrocodone/Acetaminophen ([place] 5-325 Tablet) 1 Each Tablet, 1 EACH PO Q6H PRN for prn, TAB 11/07/17 Furosemide* (Furosemide*) 40 Mg Tablet, 40 MG PO DAILY, TAB 11/07/17 Metoprolol Tartrate* (Lopressor*) 25 Mg Tab, 25 MG PO BID, #60 TAB 11/07/17 Medications Current Medications IV Flush (NS 3 ml) 3 ml PER PROTOCOL IV ; Start 02/23/19 at 04:00 Ondansetron HCl (Zofran Inj) 4 mg Q6H PRN IV NAUSEA/VOMITING Last administered on 02/23/19at 19:15; Admin Dose 4 MG; Start 02/23/19 at 04:00 Acetaminophen (Tylenol Supp) 650 mg Q6H PRN [place] .PAIN 1-3 OR TEMP; Start 02/23/19 at 04:00 Morphine Sulfate (morphine) 2 mg Q4H PRN IV .SEVERE PAIN 7-10 Last administered on 02/23/19at 19:47; Admin Dose 2 MG; Start 02/23/19 at 04:00 Albuterol/ Ipratropium (Duoneb) 3 ml Q2H RESP THERAPY PRN HHN SHORTNESS OF BREATH; Start 02/23/19 at 04:00 Hydralazine HCl (Apresoline) 10 mg Q4H PRN IV SBP > 160 Last administered on 02/23/19at 11:35; Admin Dose 10 MG; Start 02/23/19 at 04:00 Piperacillin Sod/ Tazobactam Sod 50 ml @ 100 mls/hr Q8 IVPB Last administered on 02/23/19at 13:37; Admin Dose 100 MLS/HR; Start 02/23/19 at 06:00 Miscellaneous Information 1 ea NOTE XX ; Start 02/23/19 at 04:00 Glucose (Glutose) 15 gm Q15M PRN PO DECREASED GLUCOSE; Start 02/23/19 at 04:00 Glucose (Glutose) 22.5 gm Q15M PRN PO DECREASED GLUCOSE; Start 02/23/19 at 04:00 Glucagon (Glucagen) 1 mg Q15M PRN IM DECREASED GLUCOSE; Start 02/23/19 at 04:00 Glucose (Glutose) 15 gm Q15M PRN BUCCAL DECREASED GLUCOSE; Start 02/23/19 at 04:00 Labetalol HCl (Labetalol) 20 mg Q2H PRN IV SBP > 170; Start 02/23/19 at 06:00 Enalaprilat (Vasotec Iv) 0.625 mg Q8 IV Last administered on 02/23/19at 16:31; Admin Dose 0.625 MG; Start 02/23/19 at 09:00 Diagnostic Test (Pha) (Accu-Chek) 1 ea 02 XX ; Start 02/24/19 at 02:00 Diagnostic Test (Pha) (Accu-Chek) 1 ea 2 HOURS AFTER MEALS XX Last adm inistered on 02/23/19at 09:25; Admin Dose 1 EA; Start 02/23/19 at 10:00 Insulin Glargine (Lantus) 6 units DAILY@0800 SC Last administered on 02/23/19at 09:25; Admin Dose 6 UNITS; Start 02/23/19 at 09:00 Insulin Aspart (Novolog Insulin Pen) 3 unit WITH MEALS SC ; Start 02/23/19 at 12:00 Insulin Aspart (Novolog Insulin Pen) NOVOLOG *MILD* ALGORITHM WITH MEALS BEDTIME SC ; Start 02/23/19 at 12:00 Lactated Ringer's 1,000 ml @ 80 mls/hr [id number] IV Last administered on 02/23/19at 08:53; Admin Dose 80 MLS/HR; Start 02/23/19 at 09:00 Miscellaneous Information 1 ea NOTE XX ; Start 02/23/19 at 09:00 Dextrose (D50w Syringe) 25 ml Q15M PRN IV DECREASED GLUCOSE; Start 02/23/19 at 09:00 Dextrose (D50w Syringe) 50 ml Q15M PRN IV DECREASED GLUCOSE; Start 02/23/19 at 09:00 Allergies: Coded Allergies: ibuprofen (Unverified Allergy, Unknown, 02/23/19) Past Surgical History Past Surgical Hx: other (See HPI) Social History Alcohol Use: none Smoking Status: Never smoker Drug Use: none Exam/Review of Systems Exam Vitals Vital Signs Date Temp Pulse Resp B/P (MAP) Pulse Ox O2 O2 Flow FiO2 Time Delivery Rate 02/23/19 97.5 109 18 179/87 96 13:30 (117) 02/23/19 Room Air 12:21 Results Result Diagram: 02/23/19 0538 02/23/19 0537 Results 24hrs Laboratory Tests Test 02/22/19 22:57 02/22/19 23:10 02/23/19 01:36 02/23/19 03:59 White Blood Count 13.7 H Red Blood Count 4.56 Hemoglobin 12.3 Hematocrit 37.9 Mean Corpuscular 83.1 Volume Mean Corpuscular 27.0 L Hemoglobin Mean Corpuscular 32.5 Hemoglobin Concent Red Cell 21.8 #H Distribution Width Platelet Count 470 H Mean Platelet Volume 10.7 H Immature 0.300 Granulocytes % Neutrophils % 86.1 H Lymphocytes % 6.9 L Monocytes % 6.0 Eosinophils % 0.0 Basophils % 0.7 Nucleated Red Blood 0.0 Cells % Immature 0.040 H Granulocytes # Neutrophils # 11.8 H Lymphocytes # 0.9 Monocytes # 0.8 Eosinophils # 0.0 Basophils # 0.1 Nucleated Red Blood 0.0 Cells # Sodium Level 142 Potassium Level 4.4 Chloride Level 108 Carbon Dioxide Level 27 Anion Gap 7 Blood Urea Nitrogen 32 H Creatinine 3.26 H Est Glomerular 16 L Filtrat Rate mL/min Glucose Level 141 Calcium Level 9.2 Total Bilirubin 0.3 Direct Bilirubin 0.00 Indirect Bilirubin 0.3 Aspartate Amino 50 H Transf (AST/SGOT) Alanine 50 Aminotransferase (AL T/SGPT) Alkaline Phosphatase 140 H Troponin I 0.047 Total Protein 6.9 Albumin 3.6 Globulin 3.30 H Albumin/Globulin 1.09 Ratio Lipase 86 Bedside Urine pH 8.5 7.5 (LAB) Bedside Urine 3+ H 3+ H Protein (LAB) Bedside Urine 0.50% H 0.25% H Glucose (UA) Bedside Urine 1+ H Trace H Ketones (LAB) Bedside Urine Blood 3+ H 2+ H Bedside Urine Negative Negative Nitrite (LAB) Bedside Urine Negative Negative Leukocyte Esterase (L POC Venous Lactate 0.7 Test 02/23/19 05:36 02/23/19 05:37 02/23/19 05:38 02/23/19 09:21 Iron Level 38 Total Iron Binding 192 L Capacity Percent Iron 20 L Saturation Hepatitis A Antibody POSITIVE H Total Hepatitis B Surface NEGATIVE Antigen Hepatitis B Surface NEGATIVE Antibody Hepatitis C Antibody NEGATIVE Sodium Level 140 Potassium Level 3.8 Chloride Level 112 H Carbon Dioxide Level 22 Anion Gap 6 Blood Urea Nitrogen 28 H Creatinine 2.69 H Est Glomerular 20 L Filtrat Rate mL/min Glucose Level 230 H Calcium Level 7.7 L Phosphorus Level 4.7 Magnesium Level 1.8 Total Bilirubin 0.2 Direct Bilirubin 0.00 Indirect Bilirubin 0.2 Aspartate Amino 40 Transf (AST/SGOT) Alanine 43 Aminotransferase (AL T/SGPT) Alkaline Phosphatase 99 Total Protein 5.4 #L Albumin 2.6 #L Globulin 2.80 Albumin/Globulin 0.92 Ratio Triglycerides Level 118 Cholesterol Level 170 LDL Cholesterol, 103 Calculated HDL Cholesterol 43 Cholesterol/HDL 3.9 Ratio White Blood Count 12.7 H Red Blood Count 3.69 L Hemoglobin 10.0 L Hematocrit 31.2 L Mean Corpuscular 84.6 Volume Mean Corpuscular 27.1 L Hemoglobin Mean Corpuscular 32.1 Hemoglobin Concent Red Cell 21.4 H Distribution Width Platelet Count 386 Mean Platelet Volume 11.0 H Immature 0.600 H Granulocytes % Neutrophils % 84.3 H Lymphocytes % 8.3 L Monocytes % 6.0 Eosinophils % 0.1 Basophils % 0.7 Nucleated Red Blood 0.0 Cells % Immature 0.070 H Granulocytes # Neutrophils # 10.7 H Lymphocytes # 1.1 Monocytes # 0.8 Eosinophils # 0.0 Basophils # 0.1 Nucleated Red Blood 0.0 Cells # Hemoglobin A1c 5.6 Bedside Glucose 126 Test 02/23/19 16:29 02/23/19 18:26 Bedside Glucose 113 102 Medications Medication Current Medications IV Flush (NS 3 ml) 3 ml PER PROTOCOL IV ; Start 02/23/19 at 04:00 Ondansetron HCl (Zofran Inj) 4 mg Q6H PRN IV NAUSEA/VOMITING Last administered on 02/23/19at 19:15; Admin Dose 4 MG; Start 02/23/19 at 04:00 Acetaminophen (Tylenol Supp) 650 mg Q6H PRN [place] .PAIN 1-3 OR TEMP; Start 02/23/19 at 04:00 Morphine Sulfate (morphine) 2 mg Q4H PRN IV .SEVERE PAIN 7-10 Last administered on 02/23/19at 19:47; Admin Dose 2 MG; Start 02/23/19 at 04:00 Albuterol/ Ipratropium (Duoneb) 3 ml Q2H RESP THERAPY PRN HHN SHORTNESS OF BREATH; Start 02/23/19 at 04:00 Hydralazine HCl (Apresoline) 10 mg Q4H PRN IV SBP > 160 Last administered on 02/23/19at 11:35; Admin Dose 10 MG; Start 02/23/19 at 04:00 Piperacillin Sod/ Tazobactam Sod 50 ml @ 100 mls/hr Q8 IVPB Last administered on 02/23/19 13:37; Admin Dose 100 MLS/HR; Start 02/23/19 at 06:00 Miscellaneous Information 1 ea NOTE XX ; Start 02/23/19 at 04:00 Glucose (Glutose) 15 gm Q15M PRN PO DECREASED GLUCOSE; Start 02/23/19 at 04:00 Glucose (Glutose) 22.5 gm Q15M PRN PO DECREASED GLUCOSE; Start 02/23/19 at 04:00 Glucagon (Glucagen) 1 mg Q15M PRN IM DECREASED GLUCOSE; Start 02/23/19 at 04:00 Glucose (Glutose) 15 gm Q15M PRN BUCCAL DECREASED GLUCOSE; Start 02/23/19 at 04:00 Labetalol HCl (Labetalol) 20 mg Q2H PRN IV SBP > 170; Start 02/23/19 at 06:00 Enalaprilat (Vasotec Iv) 0.625 mg Q8 IV Last administered on 02/23/19at 16:31; Admin Dose 0.625 MG; Start 02/23/19 at 09:00 Diagnostic Test (Pha) (Accu-Chek) 1 ea 02 XX ; Start 02/24/19 at 02:00 Diagnostic Test (Pha) (Accu-Chek) 1 ea 2 HOURS AFTER MEALS XX Last administered on 02/23/19at 09:25; Admin Dose 1 EA; Start 02/23/19 at 10:00 Insulin Glargine (Lantus) 6 units DAILY@0800 SC Last administered on 02/23/19at 09:25; Admin Dose 6 UNITS; Start 02/23/19 at 09:00 Insulin Aspart (Novolog Insulin Pen) 3 unit WITH MEALS SC ; Start 02/23/19 at 12:00 Insulin Aspart (Novolog Insulin Pen) NOVOLOG *MILD* ALGORITHM WITH MEALS BEDTIME SC ; Start 02/23/19 at 12:00 Lactated Ringer's 1,000 ml @ 80 mls/hr [id number] IV Last administered on 09/03at 08:53; Admin Dose 80 MLS/HR; Start 02/23/19 at 09:00 Miscellaneous Information 1 ea NOTE XX ; Start 02/23/19 at 09:00 Dextrose (D50w Syringe) 25 ml Q15M PRN IV DECREASED GLUCOSE; Start 02/23/19 at 09:00 Dextrose (D50w Syringe) 50 ml Q15M PRN IV DECREASED GLUCOSE; Start 02/23/19 at 09:00 MARYSE CERVANTES MD February 23, 2019 19:53
[2019-02-23 20:19] VITALS: BP 201/93; PULSE 98; RESP 18
[2019-02-23 21:45] VITALS: BP 182/85; PULSE 103; RESP 18
[2019-02-23 22:38] VITALS: BP 178/85
[2019-02-23 23:22] VITALS: BP 175/81; PULSE 91
[2019-02-24] VITALS (12 sets, daily range): BP systolic 162–192; BP diastolic 82–94; PULSE 76–103; RESP 18–20
[2019-02-24] MEDS ORDERED: INSULIN ASPART [NOVOLOG] 3 ML PEN SC SCH (01:00)
[2019-02-24] MEDS: Insulin NOVOLOG SS MILD Algorithm (NPO/TPN/ENTERAL FEEDS) SC SCH ×6 (01:00→20:18)
[2019-02-24] MEDS: ACCU-CHEK XX SCH ×4 (01:03→20:00)
[2019-02-24] MEDS: ONDANSETRON 4 MG INJ IV PRN (01:10)
[2019-02-24] MEDS: hydrALAzine 20 MG INJ IV PRN ×2 (01:13→08:02)
[2019-02-24] MEDS ORDERED: ACCU-CHEK XX SCH (02:00)
[2019-02-24] MEDS: LACTATED RINGER'S 1,000 ML IV SCH ×3 (05:12→21:30)
[2019-02-24] MEDS: PIPER-TAZO 2.25 GM (PMX) 50 ML IVPB SCH ×3 (06:26→21:26)
[2019-02-24] MEDS: ENALAPRILAT 1.25 MG INJ IV SCH ×3 (06:28→21:31)
[2019-02-24] MEDS: INSULIN GLARGINE [LANTus] (100 UNITS/ML) SYG SC SCH ×2 (08:00→09:07)
[2019-02-24] MEDS: INSULIN ASPART [NOVOLOG] 3 ML PEN SC SCH ×3 (08:00→17:40)
--- NOTE | 2019-02-24 09:09 | PN ---
Date/Time of Note Date/Time of Note DATE: 02/24/19 TIME: 09:06 Assessment/Plan VTE Prophylaxis Risk score (from Ns)>0 risk: 1 SCD applied (from Ns): Yes SCD contraindicated: low risk/ambulating Pharmacological prophylaxis: heparin Pharm contraindication: low risk/ambulating Lines/Catheters IV Catheter Type [facility]from [facility]): Peripheral IV Assessment/Plan Problems: (1) SIRS (systemic inflammatory response syndrome) Status: Acute Comment: Improving with administration of antibiotics. (2) Acute cholecystitis Status: Acute Comment: The HIDA scan was not normal not as it did not show any movement of tracer into the intestine. I am ordering an MRCP to further delineate this. We may need GI consult for ERCP procedure (3) Diabetes mellitus type 2 in obese Status: Chronic Comment: Adequate glycemic control. Please note I am not using the oral sulfonylurea agent in the hospital and I am using an insulin based protocol to avoid any possibility of secretagogue induced hypoglycemia (4) Kidney disease, chronic, stage IV (GFR 15-29 ml/min) Status: Chronic Comment: In 2014 this young lady had normal renal function. She reports in 2 years ago when admitted at [facility] she was told of abnormal renal function. She reports that this is progressively worsened over the last 2 years and she is under the care of a charter bus driver as delineated my last progress note, Dr. Aguayo. (5) Hypertension Status: Chronic Comment: Increase AVELINA inhibitor dosing. Qualifiers: Hypertension type: essential hypertension Qualified Codes: I10 - Essential (primary) hypertension (6) Morbid obesity with BMI of 40.0-44.9, adult Status: Chronic Comment: Presently calorie restriction diet (7) Anemia Status: Chronic Comment: Modest iron deficiency. We will go ahead and give her 1 dose of IV iron Qualifiers: Anemia type: unspecified type Qualified Codes: D64.9 - Anemia, unspecified Result Diagram: 02/24/19 0543 02/24/19 0543 Results 24hrs Laboratory Tests Test 02/23/19 09:21 02/23/19 16:29 02/23/19 18:26 02/23/19 20:43 Bedside Glucose 126 113 102 101 Test 02/24/19 00:59 02/24/19 05:10 02/24/19 05:43 02/24/19 07:59 Bedside Glucose 94 85 80 White Blood Count 12.6 H Red Blood Count 3.67 L Hemoglobin 10.1 L Hematocrit 31.1 L Mean Corpuscular 84.7 Volume Mean Corpuscular 27.5 L Hemoglobin Mean Corpuscular 32.5 Hemoglobin Concent Red Cell 22.0 H Distribution Width Platelet Count 381 Mean Platelet Volume 11.4 H Immature 0.600 H Granulocytes % Neutrophils % 80.1 H Lymphocytes % 9.9 L Monocytes % 8.5 Eosinophils % 0.1 Basophils % 0.8 Nucleated Red Blood 0.0 Cells % Immature 0.070 H Granulocytes # Neutrophils # 10.1 H Lymphocytes # 1.2 Monocytes # 1.1 H Eosinophils # 0.0 Basophils # 0.1 Nucleated Red Blood 0.0 Cells # Sodium Level 143 Potassium Level 3.8 Chloride Level 114 H Carbon Dioxide Level 22 Anion Gap 7 Blood Urea Nitrogen 33 H Creatinine 3.49 H Est Glomerular 15 L Filtrat Rate mL/min Glucose Level 88 # Calcium Level 8.1 L Phosphorus Level 5.6 H Magnesium Level 2.0 Subjective 24 Hr Interval Summary Free Text/Dictation Patient reports her GI tract feels little bit better when she would like to try some ice chips and water. Constitutional: no complaints (No fevers chills or sweats) Respiratory: no complaints Cardiovascular: no complaints Gastrointestinal: pain, nausea Genitourinary: no complaints Exam/Review of Systems Exam Vitals Vital Signs Date Temp Pulse Resp B/P (MAP) Pulse Ox O2 O2 Flow FiO2 Time Delivery Rate 02/24/19 101 187/89 09:00 (121) 02/24/19 98.3 20 98 07:23 02/23/19 Room Air 12:21 Intake and Output 02/23/19 02/23/19 02/24/19 1515:00 23:00 07:00 IntakeIntake Total 500 ml 610 ml 490 ml BalanceBalance 500 ml 610 ml 490 ml Constitutional: alert, oriented Respiratory: clear to auscultation, normal air movement Cardiovascular: regular rate and rhythm, nl pulses Gastrointestinal: soft, nl liver, spleen, non-tender, bowel sounds (Sounds are active) Results Results 24hrs Laboratory Tests Test 02/23/19 09:21 02/23/19 16:29 02/23/19 18:26 02/23/19 20:43 Bedside Glucose 126 113 102 101 Test 02/24/19 00:59 02/24/19 05:10 02/24/19 05:43 02/24/19 07:59 Bedside Glucose 94 85 80 White Blood Count 12.6 H Red Blood Count 3.67 L Hemoglobin 10.1 L Hematocrit 31.1 L Mean Corpuscular 84.7 Volume Mean Corpuscular 27.5 L Hemoglobin Mean Corpuscular 32.5 Hemoglobin Concent Red Cell 22.0 H Distribution Width Platelet Count 381 Mean Platelet Volume 11.4 H Immature 0.600 H Granulocytes % Neutrophils % 80.1 H Lymphocytes % 9.9 L Monocytes % 8.5 Eosinophils % 0.1 Basophils % 0.8 Nucleated Red Blood 0.0 Cells % Immature 0.070 H Granulocytes # Neutrophils # 10.1 H Lymphocytes # 1.2 Monocytes # 1.1 H Eosinophils # 0.0 Basophils # 0.1 Nucleated Red Blood 0.0 Cells # Sodium Level 143 Potassium Level 3.8 Chloride Level 114 H Carbon Dioxide Level 22 Anion Gap 7 Blood Urea Nitrogen 33 H Creatinine 3.49 H Est Glomerular 15 L Filtrat Rate mL/min Glucose Level 88 # Calcium Level 8.1 L Phosphorus Level 5.6 H Magnesium Level 2.0 Medications Medication Current Medications IV Flush (NS 3 ml) 3 ml PER PROTOCOL IV ; Start 02/23/19 at 04:00 Ondansetron HCl (Zofran Inj) 4 mg Q6H PRN IV NAUSEA/VOMITING Last administered on 02/24/19at 01:10; Admin Dose 4 MG; Start 02/23/19 at 04:00 Acetaminophen (Tylenol Supp) 650 mg Q6H PRN [place] .PAIN 1-3 OR TEMP; Start 02/23/19 at 04:00 Morphine Sulfate (morphine) 2 mg Q4H PRN IV .SEVERE PAIN 7-10 Last administered on 02/23/19at 19:47; Admin Dose 2 MG; Start 02/23/19 at 04:00 Albuterol/ Ipratropium (Duoneb) 3 ml Q2H RESP THERAPY PRN HHN SHORTNESS OF BREATH; Start 02/23/19 at 04:00 Hydralazine HCl (Apresoline) 10 mg Q4H PRN IV SBP > 160 Last administered on 02/24/19at 08:02; Admin Dose 10 MG; Start 02/23/19 at 04:00 Piperacillin Sod/ Tazobactam Sod 50 ml @ 100 mls/hr Q8 IVPB Last administered on 02/24/19at 06:26; Admin Dose 100 MLS/HR; Start 02/23/19 at 06:00 Miscellaneous Information 1 ea NOTE XX ; Start 02/23/19 at 04:00 Glucose (Glutose) 15 gm Q15M PRN PO DECREASED GLUCOSE; Start 02/23/19 at 04:00 Glucose (Glutose) 22.5 gm Q15M PRN PO DECREASED GLUCOSE; Start 02/23/19 at 04:00 Glucagon (Glucagen) 1 mg Q15M PRN IM DECREASED GLUCOSE; Start 02/23/19 at 04:00 Glucose (Glutose) 15 gm Q15M PRN BUCCAL DECREASED GLUCOSE; Start 02/23/19 at 04:00 Labetalol HCl (Labetalol) 20 mg Q2H PRN IV SBP > 170; Start 02/23/19 at 06:00 Diagnostic Test (Pha) (Accu-Chek) 1 ea 02 XX ; Start 02/24/19 at 02:00 Diagnostic Test (Pha) (Accu-Chek) 1 ea 2 HOURS AFTER MEALS XX Last administered on 02/23/19at 20:41; Admin Dose 1 EA; Start 02/23/19 at 10:00 Insulin Glargine (Lantus) 6 units DAILY@0800 SC Last administered on 02/23/19at 09:25; Admin Dose 6 UNITS; Start 02/23/19 at 09:00 Insulin Aspart (Novolog Insulin Pen) 3 unit WITH MEALS SC ; Start 02/23/19 at 12:00 Lactated Ringer's 1,000 ml @ 80 mls/hr [id number] IV Last administered on 02/24/19at 05:12; Admin Dose 80 MLS/HR; Start 02/23/19 at 09:00 Miscellaneous Information 1 ea NOTE XX ; Start 02/23/19 at 09:00 Dextrose (D50w Syringe) 25 ml Q15M PRN IV DECREASED GLUCOSE; Start 02/23/19 at 09:00 Dextrose (D50w Syringe) 50 ml Q15M PRN IV DECREASED GLUCOSE; Start 02/23/19 at 09:00 Insulin Aspart (Novolog Insulin Pen) (Adult SC Insulin - Mild Algorithm)... Q4 SC ; Start 02/24/19 at 01:00 Enalaprilat (Vasotec Iv) 1.25 mg Q8 IV ; Start 02/24/19 at 14:00; Status DONOVAN LEMONS MD February 24, 2019 09:09
[2019-02-24] MEDS ORDERED: SOD FERRIC GLUC COMPLX 125 MG in SOD CHLORIDE 0.9% 100 ML IVPB ONE (09:30)
[2019-02-24] MEDS: METOPROLOL 50 MG TAB PO SCH ×2 (11:19→20:19)
[2019-02-24] MEDS ORDERED: ERGOCALCIFEROL 50,000 UNIT CAP PO SCH (12:30)
[2019-02-24] MEDS: CALCIUM CARBONATE 500 MG CHEW TAB PO SCH ×2 (13:00→17:54)
--- NOTE | 2019-02-24 13:40 | CONS ---
Assessment/Plan Assessment/Plan Assessment/Plan (Daily) Assessment: Cholelithiasis with possible common bile duct obstruction on HIDA scan -Abdominal US with acute cholecystitis -HIDA scan without acute cholecystis though concern for common bile duct obs truction Abdominal pain likely secondary to above Leukocytosis Diabetes type 2 HTN Anemia Plan: Will obtain MRCP for further characterization of HIDA scan findings, to evaluate for further choledocholithiasis or biliary obstruction. May need ERCP based on MRCP findings. Discussed with patient the benefits, alternatives, and risk, and she is agreeable to proceed. May plan for Monday or Monday. Continue IV antibiotics. Can have a clear liquid diet. Monitor LFT's and bilirubin. Patient seen in collaboration with Dr. Whitfield. CC: ANA M WHITFIELD MD ; Consultation Date/Type/Reason Admit Date/Time Date of Consultation: February 24, 2019 Type of Consult gastroenterology Reason for Consultation cholecystitis, possible common bile duct obstruction Requesting Provider: DONOVAN DOVER MD Date/Time of Note DATE: 02/24/19 TIME: 13:26 Hx of Present Illness Ms. Bowles is a 34 y/o woman with a history of hypertension, type 2 diabetes, anemia, osteomyelitis status post toe amputation, who is admitted for abdominal pain associated with nausea and vomiting. She repots she ate a chicken sandwich 3 days ago and developed nausea and vomiting with right upper quadrant abdominal pain. This did not resolve and she came to the emergency room where she was found to have leukocytosis with a WBC of 14k, abdominal US with findings of acute cholecystitis, and a HIDA scan which did not reveal cholecystitis though concern for common bile duct obstruction. She reports chills though no fevers. She reports lack of bowel movement since last Monday. She denies any chest pain or shortness of breath. She denies any prior history of upper endoscopy or colonoscopy. A 10 point review of systems is otherwise negative except as mentioned in the above HPI. Past Medical History Medical History: other (See HPI) Home Meds Reported Medications Sodium Bicarbonate (Antacid) 650 Mg Tablet, 650 MG PO TID, TAB 02/23/19 Clonidine Patch (CLONIDINE PATCH) 0.2 Mg/24 Hr Patch, 1 PATCH.WK TD Q7D, #4 PATCH.WK 02/23/19 Furosemide* (Furosemide*) 40 Mg Tablet, 40 MG PO DAILY, TAB 02/23/19 Folic Acid* (Folic Acid*) 1 Mg Tablet, 1 MG PO DAILY, TAB 02/23/19 Ergocalciferol (Vitamin D2) (VITAMIN D2) 50,000 Unit Capsule, 93190 UNIT PO Q7D, CAP 02/23/19 Glipizide* (Glipizide ER*) 2.5 Mg Tab.er.24, 2.5 MG PO DAILY, TAB 02/23/19 Hydralazine Hcl* (Hydralazine Hcl*) 100 Mg Tablet, 100 MG PO Q8, #90 TAB 02/23/19 Lisinopril* (Lisinopril*) 2.5 Mg Tablet, 2.5 MG PO DAILY, #30 TAB 02/23/19 Metoprolol Tartrate* (Lopressor*) 50 Mg Tab, 50 MG PO BID, #60 TAB 02/23/19 Discontinued Reported Medications Clonidine Hcl* (Catapres*) 0.2 Mg Tablet, 0.2 MG PERCUTANE DAILY, TAB 11/07/17 Clonidine Hcl* (Clonidine Hcl*) 0.2 Mg Tablet, 0.2 MG PO Q8, TAB 11/07/17 Amlodipine Besylate* (Amlodipine Besylate*) 10 Mg Tablet, 10 MG PO DAILY, #30 TAB 11/07/17 Glipizide XL* (Glipizide XL*) 2.5 Mg Tab.er.24, 2.5 MG PO DAILY, TAB 11/07/17 Hydralazine Hcl* (Hydralazine Hcl*) 50 Mg Tab, 50 MG PO Q8 PRN for prn, #90 TAB 11/07/17 Ferric Sulfate (FERRIC SULFATE) 1 Gm Granules, 325 MG MC TID 11/07/17 Levofloxacin* (Levofloxacin*) 250 Mg Tablet, 250 MG PO DAILY, TAB 11/07/17 Hydrocodone/Acetaminophen (Evergreen 5-325 Tablet) 1 Each Tablet, 1 EACH PO Q6H PRN for prn, TAB 11/07/17 Furosemide* (Furosemide*) 40 Mg Tablet, 40 MG PO DAILY, TAB 11/07/17 Metoprolol Tartrate* (Lopressor*) 25 Mg Tab, 25 MG PO BID, #60 TAB 11/07/17 Medications Current Medications IV Flush (NS 3 ml) 3 ml PER PROTOCOL IV ; Start 02/23/19 at 04:00 Ondansetron HCl (Zofran Inj) 4 mg Q6H PRN IV NAUSEA/VOMITING Last administered on 02/24/19at 01:10; Admin Dose 4 MG; Start 02/23/19 at 04:00 Acetaminophen (Tylenol Supp) 650 mg Q6H PRN [place] .PAIN 1-3 OR TEMP; Start 02/23/19 at 04:00 Morphine Sulfate (morphine) 2 mg Q4H PRN IV .SEVERE PAIN 7-10 Last administered on 02/23/19at 19:47; Admin Dose 2 MG; Start 02/23/19 at 04:00 Albuterol/ Ipratropium (Duoneb) 3 ml Q2H RESP THERAPY PRN HHN SHORTNESS OF BREATH; Start 02/23/19 at 04:00 Hydralazine HCl (Apresoline) 10 mg Q4H PRN IV SBP > 160 Last administered on 02/24/19at 08:02; Admin Dose 10 MG; Start 02/23/19 at 04:00 Piperacillin Sod/ Tazobactam Sod 50 ml @ 100 mls/hr Q8 IVPB Last administered on 02/24/19at 06:26; Admin Dose 100 MLS/HR; Start 02/23/19 at 06:00 Miscellaneous Information 1 ea NOTE XX ; Start 02/23/19 at 04:00 Glucose (Glutose) 15 gm Q15M PRN PO DECREASED GLUCOSE; Start 02/23/19 at 04:00 Glucose (Glutose) 22.5 gm Q15M PRN PO DECREASED GLUCOSE; Start 02/23/19 at 04:00 Glucagon (Glucagen) 1 mg Q15M PRN IM DECREASED GLUCOSE; Start 02/23/19 at 04:00 Glucose (Glutose) 15 gm Q15M PRN BUCCAL DECREASED GLUCOSE; Start 02/23/19 at 04:00 Labetalol HCl (Labetalol) 20 mg Q2H PRN IV SBP > 170; Start 02/23/19 at 06:00; Status Hold Diagnostic Test (Pha) (Accu-Chek) 1 ea 02 XX ; Start 02/24/19 at 02:00 Diagnostic Test (Pha) (Accu-Chek) 1 ea 2 HOURS AFTER MEALS XX Last administered on 02/23/19at 20:41; Admin Dose 1 EA; Start 02/23/19 at 10:00 Insulin Glargine (Lantus) 6 units DAILY@0800 SC Last administered on 02/24/19at 09:07; Admin Dose 6 UNITS; Start 02/23/19 at 09:00 Insulin Aspart (Novolog Insulin Pen) 3 unit WITH MEALS SC ; Start 02/23/19 at 12:00 Lactated Ringer's 1,000 ml @ 80 mls/hr [id number] IV Last administered on 02/24/19at 05:12; Admin Dose 80 MLS/HR; Start 02/23/19 at 09:00 Miscellaneous Information 1 ea NOTE XX ; Start 02/23/19 at 09:00 Dextrose (D50w Syringe) 25 ml Q15M PRN IV DECREASED GLUCOSE; Start 02/23/19 at 09:00 Dextrose (D50w Syringe) 50 ml Q15M PRN IV DECREASED GLUCOSE; Start 02/23/19 at 09:00 Insulin Aspart (Novolog Insulin Pen) (Adult SC Insulin - Mild Algorithm)... Q4 SC ; Start 02/24/19 at 01:00 Enalaprilat (Vasotec Iv) 1.25 mg Q8 IV Last administered on 02/24/19at 13:19; Admin Dose 1.25 MG; Start 02/24/19 at 14:00 Ergocalciferol (Drisdol) 50,000 unit Q7D PO ; Start 02/24/19 at 12:30 Folic Acid (Folic Acid) 1 mg DAILY PO ; Start 02/25/19 at 09:00 Metoprolol Tartrate (Lopressor) 50 mg BID PO Last administered on 02/24/19at 11:19; Admin Dose 50 MG; Start 02/24/19 at 09:30 Calcium Carbonate (Tums) 500 mg PC MEALS PO ; Start 02/24/19 at 13:00 Allergies: Coded Allergies: ibuprofen (Unverified Allergy, Unknown, 02/23/19) Past Surgical History Past Surgical Hx: other (See HPI) Social History Alcohol Use: none Smoking Status: Never smoker Drug Use: none Exam/Review of Systems Exam Vitals Vital Signs Date Temp Pulse Resp B/P (MAP) Pulse Ox O2 O2 Flow FiO2 Time Delivery Rate 02/24/19 100 187/83 10:32 (117) 02/24/19 98.3 20 98 07:23 02/23/19 Room Air 12:21 Intake and Output 02/23/19 02/23/19 02/24/19 1515:00 23:00 07:00 IntakeIntake Total 500 ml 610 ml 490 ml BalanceBalance 500 ml 610 ml 490 ml Constitutional: alert, oriented Psych: no complaints Head: normocephalic, atraumatic Eyes: nl conjunctiva, nl lids ENMT: nl external ears & nose Neck: supple, non-tender Respiratory: clear to auscultation Cardiovascular: regular rate and rhythm Gastrointestinal: soft, tender (right upper quadrant tenderness) Musculoskeletal: nl extremities to inspection Extremities: normal pulses Neurological: COLORING CHECKER II-XII intact, nl mental status Skin: nl turgor Lymph: nl lymph nodes Results Result Diagram: 02/24/1943 02/24/19 0543 Results 24hrs Laboratory Tests Test 02/23/19 16:29 02/23/19 18:26 02/23/19 20:43 02/24/19 00:59 Bedside Glucose 113 102 101 94 Test 02/24/19 05:10 02/24/19 05:43 02/24/19 07:59 02/24/19 09:03 Bedside Glucose 85 80 85 White Blood Count 12.6 H Red Blood Count 3.67 L Hemoglobin 10.1 L Hematocrit 31.1 L Mean Corpuscular 84.7 Volume Mean Corpuscular 27.5 L Hemoglobin Mean Corpuscular 32.5 Hemoglobin Concent Red Cell 22.0 H Distribution Width Platelet Count 381 Mean Platelet Volume 11.4 H Immature 0.600 H Granulocytes % Neutrophils % 80.1 H Lymphocytes % 9.9 L Monocytes % 8.5 Eosinophils % 0.1 Basophils % 0.8 Nucleated Red Blood 0.0 Cells % Immature 0.070 H Granulocytes # Neutrophils # 10.1 H Lymphocytes # 1.2 Monocytes # 1.1 H Eosinophils # 0.0 Basophils # 0.1 Nucleated Red Blood 0.0 Cells # Sodium Level 143 Potassium Level 3.8 Chloride Level 114 H Carbon Dioxide Level 22 Anion Gap 7 Blood Urea Nitrogen 33 H Creatinine 3.49 H Est Glomerular 15 L Filtrat Rate mL/min Glucose Level 88 # Calcium Level 8.1 L Phosphorus Level 5.6 H Magnesium Level 2.0 Test 02/24/19 13:07 Bedside Glucose 87 Imaging Imaging Abdominal US 02/22/19 IMPRESSION: 1. Cholelithiasis and findings compatible with acute cholecystitis. Radionuclide hepatobiliary scan could be utilized for confirmation if clinically indicated. 2. Sonographically unremarkable liver. 3. Sonographically unremarkable right kidney. HIDA scan 02/23/19: IMPRESSION: Patent cystic duct. No evidence of acute cholecystitis. No activity seen in bowel 5 hours post injection. Some degree of common bile duct obstruction or sphincter of Oddi contraction is possible. No biliary dilatation is seen on ultrasound performed earlier the same day Medications Medication Current Medications IV Flush (NS 3 ml) 3 ml PER PROTOCOL IV ; Start 02/23/19 at 04:00 Ondansetron HCl (Zofran Inj) 4 mg Q6H PRN IV NAUSEA/VOMITING Last administered on 02/24/19at 01:10; Admin Dose 4 MG; Start 02/23/19 at 04:00 Acetaminophen (Tylenol Supp) 650 mg Q6H PRN NV .PAIN 1-3 OR TEMP; Start 02/23/19 at 04:00 Morphine Sulfate (morphine) 2 mg Q4H PRN IV .SEVERE PAIN 7-10 Last administered on 02/23/19at 19:47; Admin Dose 2 MG; Start 02/23/19 at 04:00 Albuterol/ Ipratropium (Duoneb) 3 ml Q2H RESP THERAPY PRN HHN SHORTNESS OF BREATH; Start 02/23/19 at 04:00 Hydralazine HCl (Apresoline) 10 mg Q4H PRN IV SBP > 160 Last administered on 02/24/19at 08:02; Admin Dose 10 MG; Start 02/23/19 at 04:00 Piperacillin Sod/ Tazobactam Sod 50 ml @ 100 mls/hr Q8 IVPB Last administered on 02/24/19at 06:26; Admin Dose 100 MLS/HR; Start 02/23/19 at 06:00 Miscellaneous Information 1 ea NOTE XX ; Start 02/23/19 at 04:00 Glucose (Glutose) 15 gm Q15M PRN PO DECREASED GLUCOSE; Start 02/23/19 at 04:00 Glucose (Glutose) 22.5 gm Q15M PRN PO DECREASED GLUCOSE; Start 02/23/19 at 04:00 Glucagon (Glucagen) 1 mg Q15M PRN IM DECREASED GLUCOSE; Start 02/23/19 at 04:00 Glucose (Glutose) 15 gm Q15M PRN BUCCAL DECREASED GLUCOSE; Start 02/23/19 at 04:00 Labetalol HCl (Labetalol) 20 mg Q2H PRN IV SBP > 170; Start 02/23/19 at 06:00; Status Hold Diagnostic Test (Pha) (Accu-Chek) 1 ea 02 XX ; Start 02/24/19 at 02:00 Diagnostic Test (Pha) (Accu-Chek) 1 ea 2 HOURS AFTER MEALS XX Last administered on 02/23/19at 20:41; Admin Dose 1 EA; Start 02/23/19 at 10:00 Insulin Glargine (Lantus) 6 units DAILY@0800 SC Last administered on 02/24/19at 09:07; Admin Dose 6 UNITS; Start 02/23/19 at 09:00 Insulin Aspart (Novolog Insulin Pen) 3 unit WITH MEALS SC ; Start 02/23/19 at 12:00 Lactated Ringer's 1,000 ml @ 80 mls/hr [id number] IV Last administered on 02/24/19at 05:12; Admin Dose 80 MLS/HR; Start 02/23/19 at 09:00 Miscellaneous Information 1 ea NOTE XX ; Start 02/23/19 at 09:00 Dextrose (D50w Syringe) 25 ml Q15M PRN IV DECREASED GLUCOSE; Start 02/23/19 at 09:00 Dextrose (D50w Syringe) 50 ml Q15M PRN IV DECREASED GLUCOSE; Start 02/23/19 at 09:00 Insulin Aspart (Novolog Insulin Pen) (Adult SC Insulin - Mild Algorithm)... Q4 SC ; Start 02/24/19 at 01:00 Enalaprilat (Vasotec Iv) 1.25 mg Q8 IV Last administered on 02/24/19at 13:19; Admin Dose 1.25 MG; Start 02/24/19 at 14:00 Ergocalciferol (Drisdol) 50,000 unit Q7D PO ; Start 02/24/19 at 12:30 Folic Acid (Folic Acid) 1 mg DAILY PO ; Start 02/25/19 at 09:00 Metoprolol Tartrate (Lopressor) 50 mg BID PO Last administered on 02/24/19at 11:19; Admin Dose 50 MG; Start 02/24/19 at 09:30 Calcium Carbonate (Tums) 500 mg PC MEALS PO ; Start 02/24/19 at 13:00 JACOBO RUIZ NP February 24, 2019 13:39
--- NOTE | 2019-02-24 23:24 | PN ---
Date/Time of Note Date/Time of Note DATE: 02/24/19 TIME: 23:24 Assessment/Plan Lines/Catheters IV Catheter Type (from Nrs): Peripheral IV Exam/Review of Systems Vital Signs Vitals Vital Signs Date Temp Pulse Resp B/P (MAP) Pulse Ox O2 O2 Flow FiO2 Time Delivery Rate 02/24/19 97.9 82 18 183/86 98 Room Air 20:00 (118) Intake and Output 02/23/19 02/23/19 02/24/19 1515:00 23:00 07:00 IntakeIntake Total 500 ml 610 ml 490 ml BalanceBalance 500 ml 610 ml 490 ml Results Result Diagram: 02/24/19 0543 02/24/19 0543 MARYSE CERVANTES MD February 24, 2019 23:24
[2019-02-25] MEDS: Insulin NOVOLOG SS MILD Algorithm (NPO/TPN/ENTERAL FEEDS) SC SCH ×6 (00:35→21:00)
[2019-02-25] MEDS: ACCU-CHEK XX SCH ×4 (01:01→21:10)
[2019-02-25 02:00] VITALS: BP 187/89; PULSE 84; RESP 18
[2019-02-25] MEDS: ENALAPRILAT 1.25 MG INJ IV SCH ×3 (05:51→21:09)
[2019-02-25] MEDS: PIPER-TAZO 2.25 GM (PMX) 50 ML IVPB SCH ×3 (05:51→21:10)
[2019-02-25 07:26] VITALS: BP 191/90; PULSE 70; RESP 16
[2019-02-25] MEDS: INSULIN ASPART [NOVOLOG] 3 ML PEN SC SCH ×3 (08:00→17:43)
[2019-02-25] MEDS: FOLIC ACID 1 MG TAB PO SCH (08:03)
[2019-02-25] MEDS: CALCIUM CARBONATE 500 MG CHEW TAB PO SCH ×3 (08:04→18:26)
[2019-02-25] MEDS: METOPROLOL 50 MG TAB PO SCH ×2 (08:05→21:09)
[2019-02-25] MEDS: INSULIN GLARGINE [LANTus] (100 UNITS/ML) SYG SC SCH (08:09)
[2019-02-25] MEDS: LACTATED RINGER'S 1,000 ML IV SCH ×2 (10:58→23:30)
--- NOTE | 2019-02-25 13:52 | PN ---
Date/Time of Note Date/Time of Note DATE: 02/25/19 TIME: 13:35 Assessment/Plan VTE Prophylaxis Risk score (from Nsg)>0 risk: 1 SCD applied (from Nsg): Yes Pharmacological prophylaxis: other (scds) Lines/Catheters IV Catheter Type (from Nrs): Peripheral IV Assessment/Plan Hospital Course Cholelithiasis with possible common bile duct obstruction on HIDA scan -Abdominal US with acute cholecystitis -HIDA scan without acute cholecystis though concern for common bile duct obstruction -MRCP-. There is mild dilatation of the extrahepatic bile ducts. Common bile duct measures 0.7 cm and tapers normally to the ampulla.. No filling defects are identified, however imaging is limited Abdominal pain likely secondary to above Leukocytosis- resolved Diabetes type 2 HTN Normocytic anemia CKD Plan: Continue IV antibiotics. Clear liquid diet. Monitor LFT's and bilirubin. Given findings of HIDA scan and MRCP- Dr. Whitfield to speak with Gracy- pt may require ERCP in the near future Patient seen in collaboration with Dr. Whitfield. Subjective: Course reviewed with nursing staff Patient interviewed and examined All labs, imaging and other results reviewed The patient states she feels well, no c/o RUQ pain or nausea, however during examination when palpating right upper quadrant patient does complain of pain 5 out of 10. Patient states she is passing gas and had x1 loose stool today. Constitutional: alert, oriented Psych: no complaints Head: normocephalic, atraumatic Eyes: nl conjunctiva, nl lids ENMT: nl external ears & nose Neck: supple, non-tender Respiratory: clear to auscultation Cardiovascular: regular rate and rhythm Gastrointestinal: soft, tender (right upper quadrant tenderness) Musculoskeletal: nl extremities to inspection Extremities: normal pulses Result Diagram: 02/25/19 0430 02/25/19 0430 Results 24hrs Laboratory Tests Test 02/24/19 17:36 02/24/19 20:17 02/25/19 00:30 02/25/19 04:28 Bedside Glucose 79 89 81 Phosphorus Level 5.1 H Magnesium Level 1.9 Test 02/25/19 04:30 02/25/19 05:50 02/25/19 08:03 02/25/19 10:58 White Blood Count 10.4 Red Blood Count 3.31 L Hemoglobin 9.0 L Hematocrit 28.6 L Mean Corpuscular 86.4 Volume Mean Corpuscular 27.2 L Hemoglobin Mean Corpuscular 31.5 L Hemoglobin Concent Red Cell Distribution Width Platelet Count 336 Mean Platelet Volume 11.0 H Immature 0.500 H Granulocytes % Neutrophils % 61.5 Lymphocytes % 22.2 Monocytes % 11.9 H Eosinophils % 2.9 Basophils % 1.0 Nucleated Red Blood 0.0 Cells % Immature 0.050 H Granulocytes # Neutrophils # 6.4 Lymphocytes # 2.3 Monocytes # 1.2 H Eosinophils # 0.3 Basophils # 0.1 Nucleated Red Blood 0.0 Cells # Erythrocyte 50.0 H Sedimentation Rate Sodium Level 137 Potassium Level 3.8 Chloride Level 110 Carbon Dioxide Level 21 Anion Gap 6 Blood Urea Nitrogen 35 H Creatinine 3.50 H Est Glomerular 15 L Filtrat Rate mL/min Glucose Level 70 Calcium Level 7.7 L Total Bilirubin 0.1 L Direct Bilirubin 0.00 Indirect Bilirubin 0.1 Aspartate Amino 23 Transf (AST/SGOT) Alanine 37 Aminotransferase (AL T/SGPT) Alkaline Phosphatase 76 Total Protein 5.1 L Albumin 2.4 L Globulin 2.70 Albumin/Globulin 0.88 Ratio Bedside Glucose 83 71 94 Test 02/25/19 13:03 Bedside Glucose 88 Exam/Review of Systems Exam Vitals Vital Signs Date Temp Pulse Resp B/P (MAP) Pulse Ox O2 O2 Flow FiO2 Time Delivery Rate 02/25/19 98.5 70 16 191/90 98 07:26 (123) 02/25/19 Room Air 02:00 Intake and Output 02/24/19 02/24/19 02/25/19 1414:59 22:59 06:59 IntakeIntake Total 200 ml 1770 ml 700 ml BalanceBalance 200 ml 1770 ml 700 ml Results Results 24hrs Laboratory Tests Test 02/24/19 17:36 02/24/19 20:17 02/25/19 00:30 02/25/19 04:28 Bedside Glucose 79 89 81 Phosphorus Level 5.1 H Magnesium Level 1.9 Test 02/25/19 04:30 02/25/19 05:50 02/25/19 08:03 02/25/19 10:58 White Blood Count 10.4 Red Blood Count 3.31 L Hemoglobin 9.0 L Hematocrit 28.6 L Mean Corpuscular 86.4 Volume Mean Corpuscular 27.2 L Hemoglobin Mean Corpuscular 31.5 L Hemoglobin Concent Red Cell Distribution Width Platelet Count 336 Mean Platelet Volume 11.0 H Immature 0.500 H Granulocytes % Neutrophils % 61.5 Lymphocytes % 22.2 Monocytes % 11.9 H Eosinophils % 2.9 Basophils % 1.0 Nucleated Red Blood 0.0 Cells % Immature 0.050 H Granulocytes # Neutrophils # 6.4 Lymphocytes # 2.3 Monocytes # 1.2 H Eosinophils # 0.3 Basophils # 0.1 Nucleated Red Blood 0.0 Cells # Erythrocyte 50.0 H Sedimentation Rate Sodium Level 137 Potassium Level 3.8 Chloride Level 110 Carbon Dioxide Level 21 Anion Gap 6 Blood Urea Nitrogen 35 H Creatinine 3.50 H Est Glomerular 15 L Filtrat Rate mL/min Glucose Level 70 Calcium Level 7.7 L Total Bilirubin 0.1 L Direct Bilirubin 0.00 Indirect Bilirubin 0.1 Aspartate Amino 23 Transf (AST/SGOT) Alanine 37 Aminotransferase (AL T/SGPT) Alkaline Phosphatase 76 Total Protein 5.1 L Albumin 2.4 L Globulin 2.70 Albumin/Globulin 0.88 Ratio Bedside Glucose 83 71 94 Test 02/25/19 13:03 Bedside Glucose 88 Medications Medication Current Medications IV Flush (NS 3 ml) 3 ml PER PROTOCOL IV ; Start 02/23/19 at 04:00 Ondansetron HCl (Zofran Inj) 4 mg Q6H PRN IV NAUSEA/VOMITING Last administered on 02/24/19at 01:10; Admin Dose 4 MG; Start 02/23/19 at 04:00 Acetaminophen (Tylenol Supp) 650 mg Q6H PRN [place] .PAIN 1-3 OR TEMP; Start 02/23/19 at 04:00 Morphine Sulfate (morphine) 2 mg Q4H PRN IV .SEVERE PAIN 7-10 Last administered on 02/23/19at 19:47; Admin Dose 2 MG; Start 02/23/19 at 04:00 Albuterol/ Ipratropium (Duoneb) 3 ml Q2H RESP THERAPY PRN HHN SHORTNESS OF BREATH; Start 02/23/19 at 04:00 Hydralazine HCl (Apresoline) 10 mg Q4H PRN IV SBP > 160 Last administered on 02/24/19at 08:02; Admin Dose 10 MG; Start 02/23/19 at 04:00 Piperacillin Sod/ Tazobactam Sod 50 ml @ 100 mls/hr Q8 IVPB Last administered on 02/25/19at 05:51; Admin Dose 100 MLS/HR; Start 02/23/19 at 06:00 Miscellaneous Information 1 ea NOTE XX ; Start 02/23/19 at 04:00 Glucose (Glutose) 15 gm Q15M PRN PO DECREASED GLUCOSE; Start 02/23/19 at 04:00 Glucose (Glutose) 22.5 gm Q15M PRN PO DECREASED GLUCOSE; Start 02/23/19 at 04:00 Glucagon (Glucagen) 1 mg Q15M PRN IM DECREASED GLUCOSE; Start 02/23/19 at 04:00 Glucose (Glutose) 15 gm Q15M PRN BUCCAL DECREASED GLUCOSE; Start 02/23/19 at 04:00 Labetalol HCl (Labetalol) 20 mg Q2H PRN IV SBP > 170; Start 02/23/19 at 06:00; Status Hold Diagnostic Test (Pha) (Accu-Chek) 1 ea 02 XX ; Start 02/24/19 at 02:00 Diagnostic Test (Pha) (Accu-Chek) 1 ea 2 HOURS AFTER MEALS XX Last admini stered on 02/23/19at 20:41; Admin Dose 1 EA; Start 02/23/19 at 10:00 Insulin Glargine (Lantus) 6 units DAILY@0800 SC Last administered on 02/25/19at 08:09; Admin Dose 6 UNITS; Start 02/23/19 at 09:00 Insulin Aspart (Novolog Insulin Pen) 3 unit WITH MEALS SC Last administered on 02/25/19at 13:06; Admin Dose 3 UNIT; Start 02/23/19 at 12:00 Lactated Ringer's 1,000 ml @ 80 mls/hr [id number] IV Last administered on 02/25/19at 10:58; Admin Dose 80 MLS/HR; Start 02/23/19 at 09:00 Miscellaneous Information 1 ea NOTE XX ; Start 02/23/19 at 09:00 Dextrose (D50w Syringe) 25 ml Q15M PRN IV DECREASED GLUCOSE; Start 02/23/19 at 09:00 Dextrose (D50w Syringe) 50 ml Q15M PRN IV DECREASED GLUCOSE; Start 02/23/19 at 09:00 Insulin Aspart (Novolog Insulin Pen) (Adult SC Insulin - Mild Algorithm)... Q4 SC ; Start 02/24/19 at 01:00 Enalaprilat (Vasotec Iv) 1.25 mg Q8 IV Last administered on 02/25/19at 05:51; A dmin Dose 1.25 MG; Start 02/24/19 at 14:00 Ergocalciferol (Drisdol) 50,000 unit Q7D PO Last administered on 02/24/19 17:38; Admin Dose 50,000 UNIT; Start 02/24/19 at 12:30 Folic Acid (Folic Acid) 1 mg DAILY PO Last administered on 02/25/19 08:03; Admin Dose 1 MG; Start 02/25/19 at 09:00 Metoprolol Tartrate (Lopressor) 50 mg BID PO Last administered on 02/25/19 08:05; Admin Dose 50 MG; Start 02/24/19 at 09:30 Calcium Carbonate (Tums) 500 mg PC MEALS PO Last administered on 02/25/19 13:03; Admin Dose 500 MG; Start 02/24/19 at 13:00 SAMIRA MCHUGH February 25, 2019 13:45
--- NOTE | 2019-02-25 14:44 | PN ---
Date/Time of Note Date/Time of Note DATE: 02/25/19 TIME: 12:43 Assessment/Plan VTE Prophylaxis Risk score (from Nsg)>0 risk: 1 SCD applied (from Nsg): Yes Pharmacological prophylaxis: NA/contraindicated Pharm contraindication: low risk/ambulating Lines/Catheters IV Catheter Type (from Nrs): Peripheral IV Assessment/Plan Hospital Course 34-year-old female with a history of hypertension, type 2 diabetes who presented to ER complaining of abdominal pain and nausea/vomiting. 1. Cholelithiasis with possible common bile duct obstruction on HIDA scan -Abdominal US with acute cholecystitis -HIDA scan without acute cholecystis though concern for common bile duct obstruction -MRCP-. There is mild dilatation of the extrahepatic bile ducts. Common bile duct measures 0.7 cm and tapers normally to the ampulla.. No filling defects are identified, however imaging is limited -f/u GI plan, ERCP? 2. Abdominal pain likely secondary to above 3. Leukocytosis- resolved 4. Diabetes type 2 -good control on current regimen 5. HTN: suboptimal control 2/2 meds on hold for now 6. Normocytic anemia 7. CKD stage V 8. Morbid obesity with fatty liver 9. Hyperphosphatemia Plan: resume and titrate antihypertensives, monitor blood sugar F/u GI plan, ERCP? Continue clears for now Result Diagram: 02/25/19 0430 02/25/19 0430 Results 24hrs Laboratory Tests Test 02/24/19 17:36 02/24/19 20:17 02/25/19 00:30 02/25/19 04:28 Bedside Glucose 79 89 81 Phosphorus Level 5.1 H Magnesium Level 1.9 Test 02/25/19 04:30 02/25/19 05:50 02/25/19 08:03 02/25/19 10:58 White Blood Count 10.4 Red Blood Count 3.31 L Hemoglobin 9.0 L Hematocrit 28.6 L Mean Corpuscular 86.4 Volume Mean Corpuscular 27.2 L Hemoglobin Mean Corpuscular 31.5 L Hemoglobin Concent Red Cell Distribution Width Platelet Count 336 Mean Platelet Volume 11.0 H Immature 0.500 H Granulocytes % Neutrophils % 61.5 Lymphocytes % 22.2 Monocytes % 11.9 H Eosinophils % 2.9 Basophils % 1.0 Nucleated Red Blood 0.0 Cells % Immature 0.050 H Granulocytes # Neutrophils # 6.4 Lymphocytes # 2.3 Monocytes # 1.2 H Eosinophils # 0.3 Basophils # 0.1 Nucleated Red Blood 0.0 Cells # Erythrocyte 50.0 H Sedimentation Rate Sodium Level 137 Potassium Level 3.8 Chloride Level 110 Carbon Dioxide Level 21 Anion Gap 6 Blood Urea Nitrogen 35 H Creatinine 3.50 H Est Glomerular 15 L Filtrat Rate mL/min Glucose Level 70 Calcium Level 7.7 L Total Bilirubin 0.1 L Direct Bilirubin 0.00 Indirect Bilirubin 0.1 Aspartate Amino 23 Transf (AST/SGOT) Alanine 37 Aminotransferase (AL T/SGPT) Alkaline Phosphatase 76 Total Protein 5.1 L Albumin 2.4 L Globulin 2.70 Albumin/Globulin 0.88 Ratio Bedside Glucose 83 71 94 Test 02/25/19 13:03 02/25/19 14:36 Bedside Glucose 88 80 Subjective 24 Hr Interval Summary Free Text/Dictation tolerating clears, no abd pain or nausea at this time Exam/Review of Systems Exam Vitals Vital Signs Date Temp Pulse Resp B/P (MAP) Pulse Ox O2 O2 Flow FiO2 Time Delivery Rate 02/25/19 98.5 70 16 191/90 98 07:26 (123) 02/25/19 Room Air 02:00 Intake and Output 02/24/19 02/24/19 02/25/19 1414:59 22:59 06:59 IntakeIntake Total 200 ml 1770 ml 700 ml BalanceBalance 200 ml 1770 ml 700 ml Exam Constitutional: alert, oriented, obese Head: atraumatic, normocephalic Neck: non-tender, supple Respiratory: clear to auscultation Cardiovascular: regular rate and rhythm Gastrointestinal: S/ mild epigastric/ RUQ tenderness / obese/ +BS Extremities: no edema, good radial pulses Results Results 24hrs Laboratory Tests Test 02/24/19 17:36 02/24/19 20:17 02/25/19 00:30 02/25/19 04:28 Bedside Glucose 79 89 81 Phosphorus Level 5.1 H Magnesium Level 1.9 Test 02/25/19 04:30 02/25/19 05:50 02/25/19 08:03 02/25/19 10:58 White Blood Count 10.4 Red Blood Count 3.31 L Hemoglobin 9.0 L Hematocrit 28.6 L Mean Corpuscular 86.4 Volume Mean Corpuscular 27.2 L Hemoglobin Mean Corpuscular 31.5 L Hemoglobin Concent Red Cell Distribution Width Platelet Count 336 Mean Platelet Volume 11.0 H Immature 0.500 H Granulocytes % Neutrophils % 61.5 Lymphocytes % 22.2 Monocytes % 11.9 H Eosinophils % 2.9 Basophils % 1.0 Nucleated Red Blood 0.0 Cells % Immature 0.050 H Granulocytes # Neutrophils # 6.4 Lymphocytes # 2.3 Monocytes # 1.2 H Eosinophils # 0.3 Basophils # 0.1 Nucleated Red Blood 0.0 Cells # Erythrocyte 50.0 H Sedimentation Rate Sodium Level 137 Potassium Level 3.8 Chloride Level 110 Carbon Dioxide Level 21 Anion Gap 6 Blood Urea Nitrogen 35 H Creatinine 3.50 H Est Glomerular 15 L Filtrat Rate mL/min Glucose Level 70 Calcium Level 7.7 L Total Bilirubin 0.1 L Direct Bilirubin 0.00 Indirect Bilirubin 0.1 Aspartate Amino 23 Transf (AST/SGOT) Alanine 37 Aminotransferase (AL T/SGPT) Alkaline Phosphatase 76 Total Protein 5.1 L Albumin 2.4 L Globulin 2.70 Albumin/Globulin 0.88 Ratio Bedside Glucose 83 71 94 Test 02/25/19 13:03 02/25/19 14:36 Bedside Glucose 88 80 Imaging Imaging PROCEDURE: MR ABDOMEN AND MRCP WITHOUT CONTRAST CLINICAL INDICATION: 34 years of age, female. Abdominal pain. Gallstones. Concern for biliary obstruction. TECHNIQUE: MRI of the abdomen and MRCP was performed without intravenous contrast. MRI of the abdomen was performed as: Axial and coronal SS-T2 FSE, axial SS-T2FSE with fat suppression, axial T1 gradient echo in and out of phase, axial DWI, axial T1 gradient echo with fat suppression . MRCP sequences include coronal T2 3D RST images and 3-D coronal rotating MIP images of the biliary tree. COMPARISON: Right upper quadrant ultrasound February 22, 2019 and HIDA scan February 23, 2019 FINDINGS: There is degradation of image quality due to artifact with central loss of signal intensity from standing waves and conduction disturbances due to patient body habitus and scanning at 3 Abby. GALL BLADDER, BILE DUCTS AND PANCREAS: Gall Bladder: There are multiple small stones layering dependently in the gallbladder. Gallbladder is moderately distended. There is mild gallbladder wall thickening measuring 0.4 cm (5/50). There is low insertion of the cystic duct on the intrapancreatic segment of the common bile duct. Bile ducts: Negative for intrahepatic biliary duct dilatation. There is mild dilatation of the extrahepatic bile ducts. Common bile duct measures 0.7 cm and tapers normally to the ampulla.. No filling defects are identified. However, evaluation is limited. Pancreatic duct: Pancreatic duct is normal in caliber and configuration. Negative for pancreatic divisum. Pancreas: Normal noncontrast appearance. REMAINING ABDOMEN AND PELVIS AND LUNG BASES: Lung Bases: Trace right pleural effusion. Liver: Moderate diffuse hepatic steatosis with diffuse loss of signal intensity on out of phase T1. Liver is normal size with a smooth surface contour. Spleen: Normal noncontrast appearance. Adrenal glands: Normal. Kidneys: Normal noncontrast appearance. Vasculature: Normal noncontrast appearance. Lymph nodes: No enlarged lymph nodes. Bowel: Normal. Peritoneal space: No free fluid. Abdominal wall: Mild body wall edema. MUSCULOSKELETAL: Bones: No suspicious bone lesions. IMPRESSION: 1. MRI is limited due to artifacts that are described above. Because of the patient's body habitus, it is preferable to image at 1.5 Abby. 2. Cholelithiasis in a moderately distended gallbladder. There may be mild gallbladder wall thickening. Recommend clinical correlation for signs of acute cholecystitis. There is a low insertion of the cystic duct on the intrapan creatic segment of the common bile duct. 3. Mild dilatation of the extrahepatic bile ducts without intrahepatic biliary duct dilatation and without evidence of common duct stones. The appearance could be due to a small obstructing stone that is not resolved with MRI or spasm of the sphincter Oddi. 4. Moderate hepatic steatosis. RPTAT: HCTS Physician González Date Time Electronically viewed and signed by Physician González on 02/24/2019 21:31 CS/ CC: DONOVAN DOVER MD [id number] Medications Medication Current Medications IV Flush (NS 3 ml) 3 ml PER PROTOCOL IV ; Start 02/23/19 at 04:00 Ondansetron HCl (Zofran Inj) 4 mg Q6H PRN IV NAUSEA/VOMITING Last administered on 5/12/19at 01:10; Admin Dose 4 MG; Start 02/23/19 at 04:00 Acetaminophen (Tylenol Supp) 650 mg Q6H PRN [place] .PAIN 1-3 OR TEMP; Start 02/23/19 at 04:00 Morphine Sulfate (morphine) 2 mg Q4H PRN IV .SEVERE PAIN 7-10 Last administered on 02/23/19at 19:47; Admin Dose 2 MG; Start 02/23/19 at 04:00 Albuterol/ Ipratropium (Duoneb) 3 ml Q2H RESP THERAPY PRN HHN SHORTNESS OF BREATH; Start 02/23/19 at 04:00 Hydralazine HCl (Apresoline) 10 mg Q4H PRN IV SBP > 160 Last administered on 02/24/19at 08:02; Admin Dose 10 MG; Start 02/23/19 at 04:00 Piperacillin Sod/ Tazobactam Sod 50 ml @ 100 mls/hr Q8 IVPB Last administered on 02/25/19at 14:23; Admin Dose 100 MLS/HR; Start 02/23/19 at 06:00 Miscellaneous Information 1 ea NOTE XX ; Start 02/23/19 at 04:00 Glucose (Glutose) 15 gm Q15M PRN PO DECREASED GLUCOSE; Start 02/23/19 at 04:00 Glucose (Glutose) 22.5 gm Q15M PRN PO DECREASED GLUCOSE; Start 02/23/19 at 04:00 Glucagon (Glucagen) 1 mg Q15M PRN IM DECREASED GLUCOSE; Start 02/23/19 at 04:00 Glucose (Glutose) 15 gm Q15M PRN BUCCAL DECREASED GLUCOSE; Start 02/23/19 at 04:00 Labetalol HCl (Labetalol) 20 mg Q2H PRN IV SBP > 170; Start 02/23/19 at 06:00; Status Hold Diagnostic Test (Pha) (Accu-Chek) 1 ea 02 XX ; Start 02/24/19 at 02:00 Diagnostic Test (Pha) (Accu-Chek) 1 ea 2 HOURS AFTER MEALS XX Last ad ministered on 02/23/19at 20:41; Admin Dose 1 EA; Start 02/23/19 at 10:00 Insulin Glargine (Lantus) 6 units DAILY@0800 SC Last administered on 02/25/19 08:09; Admin Dose 6 UNITS; Start 02/23/19 at 09:00 Insulin Aspart (Novolog Insulin Pen) 3 unit WITH MEALS SC Last administered on 02/25/19 13:06; Admin Dose 3 UNIT; Start 02/23/19 at 12:00 Lactated Ringer's 1,000 ml @ 80 mls/hr [id number] IV Last administered on 02/25/19 10:58; Admin Dose 80 MLS/HR; Start 02/23/19 at 09:00 Miscellaneous Information 1 ea NOTE XX ; Start 02/23/19 at 09:00 Dextrose (D50w Syringe) 25 ml Q15M PRN IV DECREASED GLUCOSE; Start 02/23/19 at 09:00 Dextrose (D50w Syringe) 50 ml Q15M PRN IV DECREASED GLUCOSE; Start 02/23/19 at 09:00 Insulin Aspart (Novolog Insulin Pen) (Adult SC Insulin - Mild Algorithm)... Q4 SC ; Start 02/24/19 at 01:00 Enalaprilat (Vasotec Iv) 1.25 mg Q8 IV Last administered on 02/25/19 14:31; Admin Dose 1.25 MG; Start 02/24/19 at 14:00 Ergocalciferol (Drisdol) 50,000 unit Q7D PO Last administered on 02/24/19 17:38; Admin Dose 50,000 UNIT; Start 02/24/19 at 12:30 Folic Acid (Folic Acid) 1 mg DAILY PO Last administered on 02/25/19 08:03; Admin Dose 1 MG; Start 02/25/19 at 09:00 Metoprolol Tartrate (Lopressor) 50 mg BID PO Last administered on 02/25/19 08:05; Admin Dose 50 MG; Start 02/24/19 at 09:30 Calcium Carbonate (Tums) 500 mg PC MEALS PO Last administered on 02/25/19 1 3:03; Admin Dose 500 MG; Start 02/24/19 at 13:00 KP ADAMS February 25, 2019 14:44
[2019-02-25 15:09] VITALS: BP 178/88; PULSE 73; RESP 16
[2019-02-25 20:00] VITALS: BP 192/88; RESP 18
[2019-02-26] MEDS: Insulin NOVOLOG SS MILD Algorithm (NPO/TPN/ENTERAL FEEDS) SC SCH ×6 (01:00→21:00)
[2019-02-26 01:23] VITALS: BP 175/84; PULSE 76; RESP 18
[2019-02-26] MEDS: ACCU-CHEK XX SCH ×4 (01:27→20:00)
[2019-02-26] MEDS: ENALAPRILAT 1.25 MG INJ IV SCH (05:20)
[2019-02-26] MEDS: PIPER-TAZO 2.25 GM (PMX) 50 ML IVPB SCH ×3 (05:21→22:14)
[2019-02-26] MEDS: LACTATED RINGER'S 1,000 ML IV SCH (05:25)
[2019-02-26 07:30] VITALS: BP 191/93; PULSE 84; RESP 16
[2019-02-26] MEDS: FOLIC ACID 1 MG TAB PO SCH (08:23)
[2019-02-26] MEDS: CALCIUM CARBONATE 500 MG CHEW TAB PO SCH ×3 (08:23→19:00)
[2019-02-26] MEDS: METOPROLOL 50 MG TAB PO SCH ×2 (08:24→20:26)
[2019-02-26] MEDS: INSULIN ASPART [NOVOLOG] 3 ML PEN SC SCH ×3 (08:28→17:54)
[2019-02-26] MEDS: INSULIN GLARGINE [LANTus] (100 UNITS/ML) SYG SC SCH (08:28)
[2019-02-26] MEDS ORDERED: INDOMETHACIN 50 MG SUPP PR SCH (09:30)
--- NOTE | 2019-02-26 10:36 | PN ---
Date/Time of Note Date/Time of Note DATE: 02/26/19 TIME: 10:36 Assessment/Plan VTE Prophylaxis Risk score (from Nsg)>0 risk: 1 SCD applied (from Nsg): Yes Pharmacological prophylaxis: NA/contraindicated Pharm contraindication: low risk/ambulating Lines/Catheters IV Catheter Type (from [facility]): Peripheral IV Assessment/Plan Hospital Course 34-year-old female with a history of hypertension, type 2 diabetes who presented to ER complaining of abdominal pain and nausea/vomiting. 1. Cholelithiasis with possible common bile duct obstruction on HIDA scan -Abdominal US with acute cholecystitis -HIDA scan without acute cholecystis though concern for common bile duct obstruction -MRCP-. There is mild dilatation of the extrahepatic bile ducts. Common bile duct measures 0.7 cm and tapers normally to the ampulla.. No filling defects are identified, however imaging is limited -was planned for ERCP today, but d/t lack of OR time, its being pushed till tomorrow -spoke with surgery, will likely need to get cholecystectomy outpatient 2. Abdominal pain likely secondary to above 3. Leukocytosis- resolved 4. Diabetes type 2 -good control on current regimen 5. HTN: suboptimal control 2/2 meds on hold for now 6. Normocytic anemia 7. CKD stage V 8. Morbid obesity 9. Hyperphosphatemia Plan: resume and titrate antihypertensives, monitor blood sugar Nephro consult to follow for CKD Phosphate binders? ERCP Result Diagram: 02/25/19 0430 02/25/19 0430 Results 24hrs Laboratory Tests Test 02/25/19 10:58 02/25/19 13:03 02/25/19 14:36 02/25/19 17:39 Bedside Glucose 94 88 80 73 Test 02/25/19 21:08 02/26/19 00:45 02/26/19 05:17 02/26/19 08:22 Bedside Glucose 86 78 79 82 Test 02/26/19 10:17 Bedside Glucose 79 Subjective 24 Hr Interval Summary Constitutional: no complaints Gastrointestinal: No nausea, No vomiting Exam/Review of Systems Exam Vitals Vital Signs Date Temp Pulse Resp B/P (MAP) Pulse Ox O2 O2 Flow FiO2 Time Delivery Rate 02/26/19 98.4 84 16 191/93 96 07:30 (125) 02/25/19 Room Air 02:00 Intake and Output 02/25/19 02/25/19 02/26/19 1515:00 23:00 07:00 IntakeIntake Total 1430 ml 1160 ml 550 ml BalanceBalance 1430 ml 1160 ml 550 ml Exam Constitutional: alert, oriented, obese Head: atraumatic, normocephalic Neck: non-tender, supple Respiratory: clear to auscultation Cardiovascular: regular rate and rhythm Gastrointestinal: S/ mild epigastric/ RUQ tenderness / obese/ +BS Extremities: no edema, good radial pulses Results Results 24hrs Laboratory Tests Test 02/25/19 10:58 02/25/19 13:03 02/25/19 14:36 02/25/19 17:39 Bedside Glucose 94 88 80 73 Test 02/25/19 21:08 02/26/19 00:45 02/26/19 05:17 02/26/19 08:22 Bedside Glucose 86 78 79 82 Test 02/26/19 10:17 Bedside Glucose 79 Medications Medication Current Medications IV Flush (NS 3 ml) 3 ml PER PROTOCOL IV ; Start 02/23/19 at 04:00 Ondansetron HCl (Zofran Inj) 4 mg Q6H PRN IV NAUSEA/VOMITING Last administered on 02/24/19at 01:10; Admin Dose 4 MG; Start 02/23/19 at 04:00 Acetaminophen (Tylenol Supp) 650 mg Q6H PRN [place] .PAIN 1-3 OR TEMP; Start 02/23/19 at 04:00 Morphine Sulfate (morphine) 2 mg Q4H PRN IV .SEVERE PAIN 7-10 Last administered on 02/23/19at 19:47; Admin Dose 2 MG; Start 02/23/19 at 04:00 Albuterol/ Ipratropium (Duoneb) 3 ml Q2H RESP THERAPY PRN HHN SHORTNESS OF BREATH; Start 02/23/19 at 04:00 Hydralazine HCl (Apresoline) 10 mg Q4H PRN IV SBP > 160 Last administered on 02/24/19at 08:02; Admin Dose 10 MG; Start 02/23/19 at 04:00 Piperacillin Sod/ Tazobactam Sod 50 ml @ 100 mls/hr Q8 IVPB Last administered on 02/26/19at 05:21; Admin Dose 100 MLS/HR; Start 02/23/19 at 06:00 Miscellaneous Information 1 ea NOTE XX ; Start 02/23/19 at 04:00 Glucose (Glutose) 15 gm Q15M PRN PO DECREASED GLUCOSE; Start 02/23/19 at 04:00 Glucose (Glutose) 22.5 gm Q15M PRN PO DECREASED GLUCOSE; Start 02/23/19 at 04:00 Glucagon (Glucagen) 1 mg Q15M PRN IM DECREASED GLUCOSE; Start 02/23/19 at 04:00 Glucose (Glutose) 15 gm Q15M PRN BUCCAL DECREASED GLUCOSE; Start 02/23/19 at 04:00 Labetalol HCl (Labetalol) 20 mg Q2H PRN IV SBP > 170; Start 02/23/19 at 06:00; Status Hold Diagnostic Test (Pha) (Accu-Chek) 1 ea 02 XX ; Start 02/24/19 at 02:00 Diagnostic Test (Pha) (Accu-Chek) 1 ea 2 HOURS AFTER MEALS XX Last administered on 02/23/19at 20:41; Admin Dose 1 EA; Start 02/23/19 at 10:00 Insulin Glargine (Lantus) 6 units DAILY@0800 SC Last administered on 02/26/19at 08:28; Admin Dose 6 UNITS; Start 02/23/19 at 09:00 Insulin Aspart (Novolog Insulin Pen) 3 unit WITH MEALS SC Last administered on 02/26/19at 08:28; Admin Dose 3 UNIT; Start 02/23/19 at 12:00 Miscellaneous Information 1 ea NOTE XX ; Start 02/23/19 at 09:00 Dextrose (D50w Syringe) 25 ml Q15M PRN IV DECREASED GLUCOSE; Start 02/23/19 at 09:00 Dextrose (D50w Syringe) 50 ml Q15M PRN IV DECREASED GLUCOSE; Start 02/23/19 at 09:00 Insulin Aspart (Novolog Insulin Pen) (Adult SC Insulin - Mild Algorithm)... Q4 SC ; Start 02/24/19 at 01:00 Enalaprilat (Vasotec Iv) 1.25 mg Q8 IV Last administered on 02/26/19at 05:20; Admin Dose 1.25 MG; Start 02/24/19 at 14:00 Ergocalciferol (Drisdol) 50,000 unit Q7D PO Last administered on 02/24/19at 17:38; Admin Dose 50,000 UNIT; Start 02/24/19 at 12:30 Folic Acid (Folic Acid) 1 mg DAILY PO Last administered on 02/26/19 08:23; Admin Dose 1 MG; Start 02/25/19 at 09:00 Metoprolol Tartrate (Lopressor) 50 mg BID PO Last administered on 02/26/19 08:24; Admin Dose 50 MG; Start 02/24/19 at 09:30 Calcium Carbonate (Tums) 500 mg PC MEALS PO Last administered on 02/26/19 08:23; Admin Dose 500 MG; Start 02/24/19 at 13:00 Indomethacin (Indocin Supp) 100 mg ONCE [place] ; Start 02/26/19 at 09:30; Stop 02/26/19 at 16:00 KP ADAMS February 26, 2019 10:36
--- NOTE | 2019-02-26 10:48 | PN ---
Date/Time of Note Date/Time of Note DATE: 02/26/19 TIME: 10:46 Assessment/Plan VTE Prophylaxis Risk score (from Nsg)>0 risk: 1 SCD applied (from Nsg): Yes Pharmacological prophylaxis: other (scds) Lines/Catheters IV Catheter Type (from Nrs): Peripheral IV Assessment/Plan Hospital Course Cholelithiasis with possible common bile duct obstruction on HIDA scan -Abdominal US with acute cholecystitis -HIDA scan without acute cholecystis though concern for common bile duct obstruction -MRCP-. There is mild dilatation of the extrahepatic bile ducts. Common bile duct measures 0.7 cm and tapers normally to the ampulla.. No filling defects are identified, however imaging is limited Abdominal pain likely secondary to above Leukocytosis- resolved Diabetes type 2 HTN Normocytic anemia CKD Plan: Continue IV antibiotics. NPO ERCP today Patient seen in collaboration with Dr. Whitfield. Subjective: Course reviewed with nursing staff Patient interviewed and examined All labs, imaging and other results reviewed No over night events- discussed plan for ERCP today with patient I reviewed risk/benefits of sedation and procedure. Patient verbalized understanding is agreeable to ERCP today Constitutional: alert, oriented Psych: no complaints Head: normocephalic, atraumatic Eyes: nl conjunctiva, nl lids ENMT: nl external ears & nose Neck: supple, non-tender Respiratory: clear to auscultation Cardiovascular: regular rate and rhythm Gastrointestinal: soft, tender (right upper quadrant tenderness) Musculoskeletal: nl extremities to inspection Extremities: normal pulses Result Diagram: 02/25/19 0430 02/25/19 0430 Results 24hrs Laboratory Tests Test 02/25/19 10:58 02/25/19 13:03 02/25/19 14:36 02/25/19 17:39 Bedside Glucose 94 88 80 73 Test 02/25/19 21:08 02/26/19 00:45 02/26/19 05:17 02/26/19 08:22 Bedside Glucose 86 78 79 82 Test 02/26/19 10:17 Bedside Glucose 79 Exam/Review of Systems Exam Vitals Vital Signs Date Temp Pulse Resp B/P (MAP) Pulse Ox O2 O2 Flow FiO2 Time Delivery Rate 02/26/19 98.4 84 16 191/93 96 07:30 (125) 02/25/19 Room Air 02:00 Intake and Output 502/25/19 02/26/19 1515:00 23:00 07:00 IntakeIntake Total 1430 ml 1160 ml 550 ml BalanceBalance 1430 ml 1160 ml 550 ml Results Results 24hrs Laboratory Tests Test 02/25/19 10:58 02/25/19 13:03 02/25/19 14:36 02/25/19 17:39 Bedside Glucose 94 88 80 73 Test 02/25/19 21:08 02/26/19 00:45 02/26/19 05:17 02/26/19 08:22 Bedside Glucose 86 78 79 82 Test 02/26/19 10:17 Bedside Glucose 79 Medications Medication Current Medications IV Flush (NS 3 ml) 3 ml PER PROTOCOL IV ; Start 02/23/19 at 04:00 Ondansetron HCl (Zofran Inj) 4 mg Q6H PRN IV NAUSEA/VOMITING Last administered on 02/24/19at 01:10; Admin Dose 4 MG; Start 02/23/19 at 04:00 Acetaminophen (Tylenol Supp) 650 mg Q6H PRN [place] .PAIN 1-3 OR TEMP; Start 02/23/19 at 04:00 Morphine Sulfate (morphine) 2 mg Q4H PRN IV .SEVERE PAIN 7-10 Last administered on 02/23/19at 19:47; Admin Dose 2 MG; Start 02/23/19 at 04:00 Albuterol/ Ipratropium (Duoneb) 3 ml Q2H RESP THERAPY PRN HHN SHORTNESS OF BREATH; Start 02/23/19 at 04:00 Hydralazine HCl (Apresoline) 10 mg Q4H PRN IV SBP > 160 Last administered on 02/24/19at 08:02; Admin Dose 10 MG; Start 02/23/19 at 04:00 Piperacillin Sod/ Tazobactam Sod 50 ml @ 100 mls/hr Q8 IVPB Last administered on 02/26/19at 05:21; Admin Dose 100 MLS/HR; Start 02/23/19 at 06:00 Miscellaneous Information 1 ea NOTE XX ; Start 02/23/19 at 04:00 Glucose (Glutose) 15 gm Q15M PRN PO DECREASED GLUCOSE; Start 02/23/19 at 04:00 Glucose (Glutose) 22.5 gm Q15M PRN PO DECREASED GLUCOSE; Start 02/23/19 at 04:00 Glucagon (Glucagen) 1 mg Q15M PRN IM DECREASED GLUCOSE; Start 02/23/19 at 04:00 Glucose (Glutose) 15 gm Q15M PRN BUCCAL DECREASED GLUCOSE; Start 02/23/19 at 04:00 Labetalol HCl (Labetalol) 20 mg Q2H PRN IV SBP > 170; Start 02/23/19 at 06:00; Status Hold Diagnostic Test (Pha) (Accu-Chek) 1 ea 02 XX ; Start 02/24/19 at 02:00 Diagnostic Test (Pha) (Accu-Chek) 1 ea 2 HOURS AFTER MEALS XX Last administered on 02/23/19at 20:41; Admin Dose 1 EA; Start 02/23/19 at 10:00 Insulin Glargine (Lantus) 6 units DAILY@0800 SC Last administered on 02/26/19at 08:28; Admin Dose 6 UNITS; Start 02/23/19 at 09:00 Insulin Aspart (Novolog Insulin Pen) 3 unit WITH MEALS SC Last administered on 02/26/19at 08:28; Admin Dose 3 UNIT; Start 02/23/19 at 12:00 Miscellaneous Information 1 ea NOTE XX ; Start 02/23/19 at 09:00 Dextrose (D50w Syringe) 25 ml Q15M PRN IV DECREASED GLUCOSE; Start 02/23/19 at 09:00 Dextrose (D50w Syringe) 50 ml Q15M PRN IV DECREASED GLUCOSE; Start 02/23/19 at 09:00 Insulin Aspart (Novolog Insulin Pen) (Adult SC Insulin - Mild Algorithm)... Q4 SC ; Start 02/24/19 at 01:00 Enalaprilat (Vasotec Iv) 1.25 mg Q8 IV Last administered on 02/26/19at 05:20; Admin Dose 1.25 MG; Start 02/24/19 at 14:00 Ergocalciferol (Drisdol) 50,000 unit Q7D PO Last administered on 02/24/19at 17:38; Admin Dose 50,000 UNIT; Start 02/24/19 at 12:30 Folic Acid (Folic Acid) 1 mg DAILY PO Last administered on 02/26/19at 08:23; Admin Dose 1 MG; Start 02/25/19 at 09:00 Metoprolol Tartrate (Lopressor) 50 mg BID PO Last administered on 02/26/19at 08:24; Admin Dose 50 MG; Start 02/24/19 at 09:30 Calcium Carbonate (Tums) 500 mg PC MEALS PO Last administered on 02/26/19at 08:23; Admin Dose 500 MG; Start 02/24/19 at 13:00 Indomethacin (Indocin Supp) 100 mg ONCE [place] ; Start 02/26/19 at 09:30; Stop 02/26/19 at 16:00 Dextrose/Sodium Chloride 1,000 ml @ 75 mls/hr [id number] IV ; Start 02/26/19 at 11:00; Status SAMIRA PEREZ February 26, 2019 10:47
[2019-02-26] MEDS: DEXTROSE 5%-0.45% NACL 1,000 ML IV SCH (11:00)
--- NOTE | 2019-02-26 11:04 | QN ---
Documentation Comment Due to logistics - ERCP will be changed to today We will restart diet today SAMIRA MCHUGH February 26, 2019 11:04
[2019-02-26] MEDS ORDERED: hydrALAzine 20 MG INJ IV PRN (12:30)
[2019-02-26] MEDS ORDERED: NIFEdipine (XL) 30 MG TAB PO SCH (12:30)
[2019-02-26] MEDS: NA BICARBONATE 650 MG TAB PO SCH ×2 (12:53→20:25)
[2019-02-26] MEDS: FUROSEMIDE 40 MG TAB PO SCH (12:53)
[2019-02-26] MEDS ORDERED: CLONIDINE 0.2 MG/24 HR PATCH TRANSDERM SCH (14:00)
--- NOTE | 2019-02-26 14:29 | PN ---
Date/Time of Note Date/Time of Note DATE: 02/26/19 TIME: 14:25 Assessment/Plan Lines/Catheters IV Catheter Type (from Nrs): Peripheral IV Assessment/Plan Chief Complaint/Hosp Course 1. Cholelithiasis with questionable cholecystitis (no pericholecystic fluid, no gallbladder wall edema). HIDA negative for cholecystitis but positive for CBD obstruction -ERCP tomorrow -Antibiotics -IV fluids -Outpatient laparoscopic cholecystectomy> patient to call for appointment with our office 2. Abdominal pain: Improved -Pain management 3.Leukocytosis: Resolved 3. Hypochromic anemia: -Monitor and transfuse as needed 4. CKD -Limit nephrotoxic meds -Renally dose meds -Per renal 5. Diabetes: -Glucose management 6. Morbid obesity BMI: 43 -diet and exercise optimization -encourage weight loss Thank you. Patient seen and examined in collaboration with Dr. Moody Tena. Subjective 24 Hr Interval Summary Feels well. Abdominal pain improved. Tolerating liquids. Pending ERCP tomorrow. No fevers, chills, sob, congested cough, cp, palpitations, guzman, dizziness, nausea, vomiting, diarrhea, dysuria. Exam/Review of Systems Vital Signs Vitals Vital Signs Date Temp Pulse Resp B/P (MAP) Pulse Ox O2 O2 Flow FiO2 Time Delivery Rate 02/26/19 98.4 84 16 191/93 96 07:30 (125) 02/25/19 Room Air 02:00 Intake and Output 02/25/19 02/25/19 02/26/19 1515:00 23:00 07:00 IntakeIntake Total 1430 ml 1160 ml 550 ml BalanceBalance 1430 ml 1160 ml 550 ml Results Result Diagram: 02/25/19 0430 02/25/19 0430 MARIZOL JORGE NP February 26, 2019 14:29
[2019-02-26 14:30] VITALS: BP 178/76; PULSE 71; RESP 18
[2019-02-26 19:38] VITALS: BP 159/79; PULSE 82; RESP 18
[2019-02-26] MEDS: DOCUSATE SODIUM 100 MG CAP PO SCH (20:25)
[2019-02-26] MEDS: FERROUS SULFATE (EC) 325 MG TAB PO SCH (20:26)
[2019-02-27] VITALS (15 sets, daily range): BP systolic 138–189; BP diastolic 67–96; PULSE 72–82; RESP 17–26
[2019-02-27] MEDS: Insulin NOVOLOG SS MILD Algorithm (NPO/TPN/ENTERAL FEEDS) SC SCH ×5 (01:00→17:00)
[2019-02-27] MEDS: DEXTROSE 5%-0.45% NACL 1,000 ML IV SCH ×2 (01:07→18:03)
[2019-02-27] MEDS: ACCU-CHEK XX SCH ×4 (01:08→20:00)
[2019-02-27] MEDS: PIPER-TAZO 2.25 GM (PMX) 50 ML IVPB SCH ×3 (05:36→21:49)
--- NOTE | 2019-02-27 06:02 | PN ---
Date/Time of Note Date/Time of Note DATE: 02/27/19 TIME: 05:59 Assessment/Plan VTE Prophylaxis Risk score (from Nsg)>0 risk: 1 SCD applied (from Nsg): Yes Pharmacological prophylaxis: NA/contraindicated Pharm contraindication: low risk/ambulating Lines/Catheters IV Catheter Type (from Nrsg): Peripheral IV Assessment/Plan Hospital Course subjective: no new complaints, labs pending objective: Constitutional: alert, oriented, obese Head: atraumatic, normocephalic Neck: non-tender, supple Respiratory: clear to auscultation Cardiovascular: regular rate and rhythm Gastrointestinal: S/ mild epigastric/ RUQ tenderness / obese/ +BS Extremities: no edema, good radial pulses assessment and plan: 34-year-old female with a history of hypertension, type 2 diabetes who presented to ER complaining of abdominal pain and nausea/vomiting. 1. Cholelithiasis with possible common bile duct obstruction on HIDA scan -Abdominal US with acute cholecystitis -HIDA scan without acute cholecystis though concern for common bile duct obstruction -MRCP-. There is mild dilatation of the extrahepatic bile ducts. Common bile duct measures 0.7 cm and tapers normally to the ampulla.. No filling defects are identified, however imaging is limited -ERCP today -spoke with surgery, will likely need to get cholecystectomy outpatient 2. Abdominal pain likely secondary to above: resolved 3. Leukocytosis- resolved 4. Diabetes type 2 -good control on current regimen 5. HTN: suboptimal control, meds resumed 6. Normocytic anemia 7. CKD stage V 8. Morbid obesity 9. Hyperphosphatemia Plan: Continue to titrate antihypertensives for optimal BP control monitor blood sugar Nephro consult to follow for CKD Phosphate binders? ERCP today Result Diagram: 02/27/19 0429 02/25/19 0430 Results 24hrs Laboratory Tests Test 02/26/19 08:22 02/26/19 10:17 02/26/19 12:52 02/26/19 14:44 Bedside Glucose 82 79 80 110 Test 02/26/19 17:51 02/26/19 20:23 02/26/19 22:13 02/27/19 01:19 Bedside Glucose 76 70 76 73 Test 02/27/19 04:29 02/27/19 05:34 White Blood Count 10.8 Red Blood Count 3.43 L Hemoglobin 9.5 L Hematocrit 29.2 L Mean Corpuscular 85.1 Volume Mean Corpuscular 27.7 L Hemoglobin Mean Corpuscular 32.5 Hemoglobin Concent Red Cell 21.0 H Distribution Width Platelet Count 356 Mean Platelet Volume 11.6 H Immature 0.400 Granulocytes % Neutrophils % 64.1 Lymphocytes % 20.4 Monocytes % 10.1 Eosinophils % 4.2 Basophils % 0.8 Nucleated Red Blood 0.0 Cells % Immature 0.040 H Granulocytes # Neutrophils # 6.9 Lymphocytes # 2.2 Monocytes # 1.1 H Eosinophils # 0.5 Basophils # 0.1 Nucleated Red Blood 0.0 Cells # Bedside Glucose 84 Exam/Review of Systems Exam Vitals Vital Signs Date Temp Pulse Resp B/P (MAP) Pulse Ox O2 O2 Flow FiO2 Time Delivery Rate 02/27/19 74 187/92 05:35 (123) 02/27/19 97.7 18 95 01:44 02/26/19 Room Air 14:30 Intake and Output 02/26/19 02/26/19 02/27/19 1414:59 22:59 06:59 IntakeIntake Total 1040 ml 650 ml BalanceBalance 1040 ml 650 ml Results Results 24hrs Laboratory Tests Test 02/26/19 08:22 02/26/19 10:17 02/26/19 12:52 02/26/19 14:44 Bedside Glucose 82 79 80 110 Test 02/26/19 17:51 02/26/19 20:23 02/26/19 22:13 02/27/19 01:19 Bedside Glucose 76 70 76 73 Test 02/27/19 04:29 02/27/19 05:34 White Blood Count 10.8 Red Blood Count 3.43 L Hemoglobin 9.5 L Hematocrit 29.2 L Mean Corpuscular 85.1 Volume Mean Corpuscular 27.7 L Hemoglobin Mean Corpuscular 32.5 Hemoglobin Concent Red Cell 21.0 H Distribution Width Platelet Count 356 Mean Platelet Volume 11.6 H Immature 0.400 Granulocytes % Neutrophils % 64.1 Lymphocytes % 20.4 Monocytes % 10.1 Eosinophils % 4.2 Basophils % 0.8 Nucleated Red Blood 0.0 Cells % Immature 0.040 H Granulocytes # Neutrophils # 6.9 Lymphocytes # 2.2 Monocytes # 1.1 H Eosinophils # 0.5 Basophils # 0.1 Nucleated Red Blood 0.0 Cells # Bedside Glucose 84 Medications Medication Current Medications IV Flush (NS 3 ml) 3 ml PER PROTOCOL IV ; Start 02/23/19 at 04:00 Ondansetron HCl (Zofran Inj) 4 mg Q6H PRN IV NAUSEA/VOMITING Last administered on 02/24/19at 01:10; Admin Dose 4 MG; Start 02/23/19 at 04:00 Acetaminophen (Tylenol Supp) 650 mg Q6H PRN [place] .PAIN 1-3 OR TEMP; Start at 04:00 Morphine Sulfate (morphine) 2 mg Q4H PRN IV .SEVERE PAIN 7-10 Last administered on 02/23/19at 19:47; Admin Dose 2 MG; Start 02/23/19 at 04:00 Albuterol/ Ipratropium (Duoneb) 3 ml Q2H RESP THERAPY PRN HHN SHORTNESS OF BREATH; Start 02/23/19 at 04:00 Hydralazine HCl (Apresoline) 10 mg Q4H PRN IV SBP > 160 Last administered on 02/24/19at 08:02; Admin Dose 10 MG; Start 02/23/19 at 04:00 Piperacillin Sod/ Tazobactam Sod 50 ml @ 100 mls/hr Q8 IVPB Last administered on 02/27/19at 05:36; Admin Dose 100 MLS/HR; Start 02/23/19 at 06:00 Miscellaneous Information 1 ea NOTE XX ; Start 02/23/19 at 04:00 Glucose (Glutose) 15 gm Q15M PRN PO DECREASED GLUCOSE; Start 02/23/19 at 04:00 Glucose (Glutose) 22.5 gm Q15M PRN PO DECREASED GLUCOSE; Start 02/23/19 at 04:00 Glucagon (Glucagen) 1 mg Q15M PRN IM DECREASED GLUCOSE; Start 02/23/19 at 04:00 Glucose (Glutose) 15 gm Q15M PRN BUCCAL DECREASED GLUCOSE; Start 02/23/19 at 04:00 Diagnostic Test (Pha) (Accu-Chek) 1 ea 02 XX ; Start 02/24/19 at 02:00 Diagnostic Test (Pha) (Accu-Chek) 1 ea 2 HOURS AFTER MEALS XX Last administered on 02/23/19at 20:41; Admin Dose 1 EA; Start 02/23/19 at 10:00 Insulin Glargine (Lantus) 6 units DAILY@0800 SC Last administered on 02/26/19at 08:28; Admin Dose 6 UNITS; Start 02/23/19 at 09:00 Insulin Aspart (Novolog Insulin Pen) 3 unit WITH MEALS SC Last administered on 02/26/19at 17:54; Admin Dose 3 UNIT; Start 02/23/19 at 12:00 Miscellaneous Information 1 ea NOTE XX ; Start 02/23/19 at 09:00 Dextrose (D50w Syringe) 25 ml Q15M PRN IV DECREASED GLUCOSE; Start 02/23/19 at 09:00 Dextrose (D50w Syringe) 50 ml Q15M PRN IV DECREASED GLUCOSE; Start 02/23/19 at 09:00 Insulin Aspart (Novolog Insulin Pen) (Adult SC Insulin - Mild Algorithm)... Q4 SC ; Start 02/24/19 at 01:00 Ergocalciferol (Drisdol) 50,000 unit Q7D PO Last administered on 02/24/19at 17:38; Admin Dose 50,000 UNIT; Start 02/24/19 at 12:30 Folic Acid (Folic Acid) 1 mg DAILY PO Last administered on 02/26/19 08:23; Admin Dose 1 MG; Start 02/25/19 at 09:00 Metoprolol Tartrate (Lopressor) 50 mg BID PO Last administered on 02/26/19at 2 0:26; Admin Dose 50 MG; Start 02/24/19 at 09:30 Calcium Carbonate (Tums) 500 mg PC MEALS PO Last administered on 02/26/19at 08:23; Admin Dose 500 MG; Start 02/24/19 at 13:00 Dextrose/Sodium Chloride 1,000 ml @ 75 mls/hr [id number] IV Last administered on 02/27/19at 01:07; Admin Dose 75 MLS/HR; Start 02/26/19 at 11:00 Hydralazine HCl (Apresoline) 10 mg Q6H PRN IV sbp>160mmhg; Start 02/26/19 at 12:30 Clonidine HCl (Catapres-Tts 2 Patch) 1 patch Q7D TRANSDERM Last administered on 02/26/19at 14:46; Admin Dose 1 PATCH; Start 02/26/19 at 14:00 Furosemide (Lasix) 40 mg DAILY PO Last administered on 02/26/19 12:53; Admin Dose 40 MG; Start 02/26/19 at 12:30 Hydralazine HCl (Apresoline) 100 mg Q8 PO Last administered on 02/27/19 05:34; Admin Dose 100 MG; Start 02/26/19 at 14:00 Sodium Bicarbonate (Sodium Bicarbonate Tab) 650 mg TID PO Last administered on 02/26/19 20:25; Admin Dose 650 MG; Start 02/26/19 at 13:00 Ferrous Sulfate (Ferrous Sulfate (Ec)) 325 mg BID PO Last administered on 20:26; Admin Dose 325 MG; Start 02/26/19 at 21:00 Docusate Sodium (Colace) 100 mg BID PO Last administered on 02/26/19 20:25; Admin Dose 100 MG; Start 02/26/19 at 21:00 KP ADAMS February 27, 2019 06:02
[2019-02-27] MEDS: INSULIN ASPART [NOVOLOG] 3 ML PEN SC SCH ×3 (07:58→18:02)
[2019-02-27] MEDS: hydrALAzine 20 MG INJ IV PRN (08:21)
[2019-02-27] MEDS: CALCIUM CARBONATE 500 MG CHEW TAB PO SCH ×3 (09:00→19:10)
[2019-02-27] MEDS: DOCUSATE SODIUM 100 MG CAP PO SCH ×2 (09:00→20:40)
[2019-02-27] MEDS: FERROUS SULFATE (EC) 325 MG TAB PO SCH ×2 (09:00→20:40)
[2019-02-27] MEDS: NA BICARBONATE 650 MG TAB PO SCH ×3 (09:00→20:40)
[2019-02-27] MEDS: FOLIC ACID 1 MG TAB PO SCH (09:00)
--- NOTE | 2019-02-27 09:07 | CONS ---
DATE OF ADMISSION: 02/23/2019 DATE OF CONSULTATION: 02/27/2019 TYPE OF CONSULTATION: Nephrology. REASON FOR CONSULTATION: Possible chronic kidney disease. PHYSICIAN REQUESTING CONSULT: Dr. Adams. HISTORY OF PRESENT ILLNESS: This is a 34-year-old female with a past medical history of chronic kidn ey disease stage IV, history of hypertension, history of diabetes who presents to [facility] with complaints of nausea and vomiting. The patient upon arrival in the emergency room had a Doppler ultrasound that showed cholelithiasis, possible acute cholecystitis. The patient had elev ated white count. The patient was started on IV fluid, antibiotic therapy and admitted to med/surg. The patient was seen by general surgery, and gastroenterology. The patient had a HIDA scan, which w as negative for acute cholecystitis, but did show evidence of common bile duct obstruction. The imelda ent is pending ERCP. In terms of patient's renal history, the patient has underlying chronic kidney disease. The patient is followed by primary snorkelling instructor that she is not able to name the snorkelling instructor's name. The patien t also states that she had a previous biopsy of the kidneys, but did not know the results. She denie s any hemoptysis, hematemesis or hematochezia. PAST MEDICAL HISTORY: History of chronic kidney disease, history of hypertension, diabetes. PAST SURGICAL HISTORY: Reviewed. FAMILY HISTORY: No family history of kidney disease. SOCIAL HISTORY: She does not drink, smoke or do drugs. MEDICATIONS: The patient's medications have been reviewed. REVIEW OF SYSTEMS: A 14-point review of systems was conducted. Pertinent positives stated in HPI, o therwise negative. PHYSICAL EXAMINATION: VITAL SIGNS: Blood pressure is 189/96, respirations 17, pulse 77, temperature 98.2. HEENT: Head is normocephalic. NECK: Supple. HEART: Regular rate. LUNGS: Show diminished breath sounds at the base. ABDOMEN: Soft, nontender to palpation without rebound or guarding. EXTREMITIES: Negative for clubbing, cyanosis. Positive edema. DERMATOLOGIC: No rashes. MUSCULOSKELETAL: No joint effusion. NEUROLOGIC: No focal deficits. LABORATORY DATA: From 02/27/2019 was reviewed. Urinalysis was reviewed. IMAGING STUDIES: Abdominal MRI was reviewed. ASSESSMENT AND PLAN: 1. Nonoliguric acute kidney injury on top of chronic kidney disease stage IV with unknown baseline E GFR. Etiology of current acute kidney injury appears to be secondary to hemodynamics. Renal functio n is fluctuating, but appears to be stabilizing around a creatinine of 3.5 mg/dL. At this point, we would check a UA with microanalysis, check urine electrolytes, quantify the patient's proteinuria. T he patient's abdominal MRI showed no evidence of obstruction. We would otherwise continue current tr eatment plan, supportive care, renally dose all medications. We would discontinue IV fluids once the patient is no longer n.p.o. Please avoid NSAIDs or AVELINA inhibitors at this time. 2. Metabolic acidosis secondary to a chronic kidney disease. The patient remains on Bicitra. 3. Anemia. Monitor hemoglobin and hematocrit levels. We will give Epogen as needed. 4. Mineral bone disorder, monitor calcium and phosphorus levels. 5. Volume overload. Etiology may be multifactorial secondary to chronic kidney disease, IV fluids. Recommendation is to resume the patient's diuretic therapy once no longer n.p.o. and discontinue IV fluids. We will monitor closely. 6. Cholelithiasis with possible common bile duct obstruction. The patient is pending ERCP. 7. Diabetes. Continue current insulin regimen. 8. Hypertension. Continue current blood pressure regimen, adjust as needed. 9. Morbid obesity. Continue dietary modification. 10. Nausea and vomiting, improving. Continue to monitor. Thank you, Dr. Adams, for this interesting consult. It will be a pleasure to follow the patient with derrick stockton throughout the hospital course. Dictated By: GUICHO BELTRAN DO NR/NTS Conf#: [id number] DID#: [id number] CC: KP ADAMS MD; STACIE BENNETT MD; MARYSE CERVANTES MD;*EndCC*
[2019-02-27] MEDS: NIFEdipine (XL) 60 MG TAB PO SCH ×2 (09:49→20:42)
[2019-02-27] MEDS: METOPROLOL 50 MG TAB PO SCH ×2 (09:49→20:41)
[2019-02-27] MEDS: FUROSEMIDE 40 MG TAB PO SCH (09:49)
[2019-02-27] MEDS: INSULIN GLARGINE [LANTus] (100 UNITS/ML) SYG SC SCH (09:53)
[2019-02-27] MEDS ORDERED: IOHEXOL 300MG/ML 30 ML BTL ONE (15:51)
--- NOTE | 2019-02-27 15:57 | PREAC ---
Date/Time of Note Date/Time of Note DATE: 02/27/19 TIME: 15:56 Anesthesia Eval and Record Evaluation Time Pre-Procedure Interview DATE: 02/27/19 TIME: 15:56 Age 34 Sex female NPO: 8 hrs Preoperative diagnosis COMMON BILE DUCT OBSTRUCTION Planned procedure ERCP Past Medical History Past Medical History: Includes Cardio: HTN Endo: Diabetes Renal: KHANH, CKD GI: Morbid obesity Surgery & Anesthesia Issues No known issue Meds Anticoagulation: No Beta Raul within 24 hr: No Reason Beta Raul not given: Pt. not on B-Raul Reported Medications Sodium Bicarbonate (Antacid) 650 Mg Tablet, 650 MG PO TID, TAB 02/23/19 Clonidine Patch (CLONIDINE PATCH) 0.2 Mg/24 Hr Patch, 1 PATCH.WK TD Q7D, #4 PATCH.WK 02/23/19 Furosemide* (Furosemide*) 40 Mg Tablet, 40 MG PO DAILY, TAB 02/23/19 Folic Acid* (Folic Acid*) 1 Mg Tablet, 1 MG PO DAILY, TAB 02/23/19 Ergocalciferol (Vitamin D2) (VITAMIN D2) 50,000 Unit Capsule, 35769 UNIT PO Q7D, CAP 02/23/19 Glipizide* (Glipizide ER*) 2.5 Mg Tab.er.24, 2.5 MG PO DAILY, TAB 02/23/19 Hydralazine Hcl* (Hydralazine Hcl*) 100 Mg Tablet, 100 MG PO Q8, #90 TAB 02/23/19 Lisinopril* (Lisinopril*) 2.5 Mg Tablet, 2.5 MG PO DAILY, #30 TAB 02/23/19 Metoprolol Tartrate* (Lopressor*) 50 Mg Tab, 50 MG PO BID, #60 TAB 02/23/19 Discontinued Reported Medications Clonidine Hcl* (Catapres*) 0.2 Mg Tablet, 0.2 MG PERCUTANE DAILY, TAB 11/07/17 Clonidine Hcl* (Clonidine Hcl*) 0.2 Mg Tablet, 0.2 MG PO Q8, TAB 11/07/17 Amlodipine Besylate* (Amlodipine Besylate*) 10 Mg Tablet, 10 MG PO DAILY, #30 TAB 11/07/17 Glipizide XL* (Glipizide XL*) 2.5 Mg Tab.er.24, 2.5 MG PO DAILY, TAB 11/07/17 Hydralazine Hcl* (Hydralazine Hcl*) 50 Mg Tab, 50 MG PO Q8 PRN for prn, #90 TAB 11/07/17 Ferric Sulfate (FERRIC SULFATE) 1 Gm Granules, 325 MG MC TID 11/07/17 Levofloxacin* (Levofloxacin*) 250 Mg Tablet, 250 MG PO DAILY, TAB 11/07/17 Hydrocodone/Acetaminophen ([place] 5-325 Tablet) 1 Each Tablet, 1 EACH PO Q6H PRN for prn, TAB 11/07/17 Furosemide* (Furosemide*) 40 Mg Tablet, 40 MG PO DAILY, TAB 11/07/17 Metoprolol Tartrate* (Lopressor*) 25 Mg Tab, 25 MG PO BID, #60 TAB 11/07/17 Current Medications IV Flush (NS 3 ml) 3 ml PER PROTOCOL IV ; Start 02/23/19 at 04:00 Ondansetron HCl (Zofran Inj) 4 mg Q6H PRN IV NAUSEA/VOMITING Last administered on 02/24/19at 01:10; Admin Dose 4 MG; Start 02/23/19 at 04:00 Acetaminophen (Tylenol Supp) 650 mg Q6H PRN [place] .PAIN 1-3 OR TEMP; Start 02/23/19 at 04:00 Morphine Sulfate (morphine) 2 mg Q4H PRN IV .SEVERE PAIN 7-10 Last administered on 02/23/19at 19:47; Admin Dose 2 MG; Start 02/23/19 at 04:00 Albuterol/ Ipratropium (Duoneb) 3 ml Q2H RESP THERAPY PRN HHN SHORTNESS OF BREATH; Start 02/23/19 at 04:00 Hydralazine HCl (Apresoline) 10 mg Q4H PRN IV SBP > 160 Last administered on 02/27/19at 08:21; Admin Dose 10 MG; Start 02/23/19 at 04:00 Piperacillin Sod/ Tazobactam Sod 50 ml @ 100 mls/hr Q8 IVPB Last administered on 02/27/19at 05:36; Admin Dose 100 MLS/HR; Start 02/23/19 at 06:00 Miscellaneous Information 1 ea NOTE XX ; Start 02/23/19 at 04:00 Glucose (Glutose) 15 gm Q15M PRN PO DECREASED GLUCOSE; Start 02/23/19 at 04:00 Glucose (Glutose) 22.5 gm Q15M PRN PO DECREASED GLUCOSE; Start 02/23/19 at 04:00 Glucagon (Glucagen) 1 mg Q15M PRN IM DECREASED GLUCOSE; Start 02/23/19 at 04:00 Glucose (Glutose) 15 gm Q15M PRN BUCCAL DECREASED GLUCOSE; Start 02/23/19 at 04:00 Diagnostic Test (Pha) (Accu-Chek) 1 ea 02 XX ; Start 02/24/19 at 02:00 Diagnostic Test (Pha) (Accu-Chek) 1 ea 2 HOURS AFTER MEALS XX Last administered on 02/23/19at 20:41; Admin Dose 1 EA; Start 02/23/19 at 10:00 Insulin Glargine (Lantus) 6 units DAILY@0800 SC Last administered on 02/27/19at 09:53; Admin Dose 6 UNITS; Start 02/23/19 at 09:00 Insulin Aspart (Novolog Insulin Pen) 3 unit WITH MEALS SC Last administered on 02/26/19at 17:54; Admin Dose 3 UNIT; Start 02/23/19 at 12:00 Miscellaneous Information 1 ea NOTE XX ; Start 02/23/19 at 09:00 Dextrose (D50w Syringe) 25 ml Q15M PRN IV DECREASED GLUCOSE; Start 02/23/19 at 09:00 Dextrose (D50w Syringe) 50 ml Q15M PRN IV DECREASED GLUCOSE; Start 02/23/19 at 09:00 Insulin Aspart (Novolog Insulin Pen) (Adult SC Insulin - Mild Algorithm)... Q4 SC ; Start 02/24/19 at 01:00 Ergocalciferol (Drisdol) 50,000 unit Q7D PO Last administered on 02/24/19at 17:38; Admin Dose 50,000 UNIT; Start 02/24/19 at 12:30 Folic Acid (Folic Acid) 1 mg DAILY PO Last administered on 02/26/19 08:23; Admin Dose 1 MG; Start 02/25/19 at 09:00 Metoprolol Tartrate (Lopressor) 50 mg BID PO Last administered on 02/27/19at 09:49; Admin Dose 50 MG; Start 02/24/19 at 09:30 Calcium Carbonate (Tums) 500 mg PC MEALS PO Last administered on 02/26/19 08:23; Admin Dose 500 MG; Start 02/24/19 at 13:00 Dextrose/Sodium Chloride 1,000 ml @ 40 mls/hr Q24H IV Last administered on 02/27/19 01:07; Admin Dose 75 MLS/HR; Start 02/26/19 at 11:00 Hydralazine HCl (Apresoline) 10 mg Q6H PRN IV sbp>160mmhg; Start 02/26/19 at 12:30 Clonidine HCl (Catapres-Tts 2 Patch) 1 patch Q7D TRANSDERM Last administered on 02/26/19 14:46; Admin Dose 1 PATCH; Start 02/26/19 at 14:00 Furosemide (Lasix) 40 mg DAILY PO Last administered on 02/27/19 09:49; Admin Dose 40 MG; Start 02/26/19 at 12:30 Hydralazine HCl (Apresoline) 100 mg Q8 PO Last administered on 02/27/19 05:34; Admin Dose 100 MG; Start 02/26/19 at 14:00 Sodium Bicarbonate (Sodium Bicarbonate Tab) 650 mg TID PO Last administered on 02/26/19 20:25; Admin Dose 650 MG; Start 02/26/19 at 13:00 Ferrous Sulfate (Ferrous Sulfate (Ec)) 325 mg BID PO Last administered on 02/26/19 20:26; Admin Dose 325 MG; Start 02/26/19 at 21:00 Docusate Sodium (Colace) 100 mg BID PO Last administered on 02/26/19 20:25; Admin Dose 100 MG; Start 02/26/19 at 21:00 Nifedipine (Procardia Xl) 60 mg BID PO Last administered on 02/27/19 09:49; Admin Dose 60 MG; Start 02/27/19 at 09:00 Meds reviewed: Yes Allergies Coded Allergies: ibuprofen (Unverified Allergy, Unknown, 02/23/19) Allergies Reviewed: Yes Labs/Studies Labs Reviewed: Reviewed by anesthesiologist Result Diagram: 02/27/19 0429 02/27/19 0429 Laboratory Tests 02/27/19 04:29 test: Negative Pre-procedure Exam Last vitals Vital Signs Date Temp Pulse Resp B/P (MAP) Pulse Ox O2 O2 Flow FiO2 Time Delivery Rate 02/27/19 98.2 77 17 189/96 98 07:46 (127) 02/26/19 Room Air 14:30 Airway: Adequate mouth opening, Adequate thyromental dist Mallampati: Mallampati II Teeth: Normal Lung: Normal Heart: Normal ASA Physical Status ASA physical status: 3 Emergency: None Planned Anesthetic General/MAC: ETT Planned Pain Management Parenteral pain med Pre-operative Attestations Prior to commencing anesthesia and surgery, the patient was re-evaluated, there was verification of: *The patient's identity *The results of appropriate recent lab work and preoperative vital signs *The above evaluation not changing prior to induction *Anesthetic plan, risk benefits, alternative and complications discussed with patient/family; questions answered; patient/family understands, accepts and wishes to proceed. JOSÉ MIGUEL HASSAN February 27, 2019 15:57
[2019-02-27] MEDS ORDERED: PROPOFOL 20 ML ONE (16:05)
[2019-02-27] MEDS ORDERED: LIDOCAINE 2% (SDV) 5 ML INJ ONE (16:05)
[2019-02-27] MEDS ORDERED: ROCURONIUM 50 MG INJ ONE (16:07)
[2019-02-27] MEDS ORDERED: DEXAMETHASONE 4 MG/ML 5 ML INJ ONE (16:31)
[2019-02-27] MEDS ORDERED: ONDANSETRON 4 MG INJ ONE (16:31)
[2019-02-27] MEDS ORDERED: SUGAMMADEX SODIUM 200 MG/2 ML VIAL IV ONE (16:43)
--- NOTE | 2019-02-27 16:58 | HPN ---
Date/Time of Note Date/Time of Note DATE: 02/27/19 TIME: 15:57 Interval H&P Admission Note Pt. seen H&P reviewed: No system changes ANA M ESPARZA MD February 27, 2019 16:58
--- NOTE | 2019-02-27 17:02 | PAC ---
Date/Time of Note Date/Time of Note DATE: 02/27/19 TIME: 17:01 Post-Anesthesia Notes Post-Anesthesia Note Last documented vital signs Vital Signs Date Temp Pulse Resp B/P (MAP) Pulse Ox O2 O2 Flow FiO2 Time Delivery Rate 02/27/19 98.2 77 17 189/96 98 1700 (127) 02/26/19 Room Air 14:30 Activity: WNL Respiratory function: WNL Cardiovascular function: WNL Mental status: Baseline Pain reasonably controlled: Yes Hydration appropriate: Yes Nausea/Vomiting absent: Yes JOSÉ MIGUEL HASSAN February 27, 2019 17:01
--- NOTE | 2019-02-27 17:04 | OPPN ---
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 Post sphincterotomy with improved emptying. Biliary Sludge removed No evidence of choledocholithiasis. Plan: Observation. Consider cholecystectomy. Procedure Performed: ERCP (+ Sphincterotomy + balloon sweep) Surgeon see signature line Court Collections Officer none Anesthesia Type: general Tourniquet Time none EBL none Transfusion required none Biopsy 1: None Grafts/Implants none Tubes/Drains none Complication(s) none Disposition: PACU Procedure Description After informed consent, with the patient/relatives understanding the procedure, its indications, potential risks and complications, including but not limited to: allergic reaction, bleeding, perforation or infection, and after all pertinent questions were answered to the patients satisfaction, the patient/relatives signed witnessed informed consent. Following this, premedication was administered slowly IV push under careful cardiovascular and respiratory monitoring with pulse oximetry, automatic blood pressure, and awake overnight monitor. Once the sedative effect was achieved the patient was place in the prone position in the radiology special procedures suite; the side viewing panendoscope was introduced and advanced under visual control. Careful examination of the upper gastrointestinal tract, both on insertion as well as withdrawal of the instrument disclosed the following findings: Esophagus: The mucosa of the entire appears within normal limits. There is no evidence of esophagitis, varices, neoplasm or stricture. No Hiatal Hernia uyen ntified. Stomach: Upon entrance to the stomach air was insufflated, the gastric stark distended normally, the mucosa of the fundus, body and antrum of the stomach was carefully examined both head-on and on retroflexion, and shows no abnormalities. There is no evidence of gastritis, ulcers, or neoplasm. Pylorus: The pylorus appears patent and within normal limits, with no evidence of gastric outlet obstruction. Duodenum: The duodenal mucosa was carefully examined in the duodenal bulb as well as the second portion of the duodenum and appears unremarkable with no evidence of duodenitis, ulcer or neoplasm. Ampulla of vater: The ampulla of Vater was identified and carefully examined appearing within normal limits. Cannulation: At this point cannulation was accomplished with the following fluoroscopic findings: Pancreatogram: Normal Cholangiogram: Biliary dilatation w/maximum diameter of 12 mm, amorphous filling defects present. Poor emptying documented. Standard Sphincterotomy performed without problems. Balloon sweep w/9-12 mm ballon resulted in removal of sludge, no stones. Improved emptying. Balloon cholangiogram showed no additional abnormalities. The instrument was then withdrawn the patient tolerated the procedure well and was transfer out of the endoscopy suite awake, and in good condition to continue to recover under observation. Copies To: CC: ANA M ESPARZA MD ; ANA M ESPARZA MD February 27, 2019 17:04
[2019-02-27] MEDS: Insulin NOVOLOG SS MILD Algorithm (SS with meals and bedtime) SC SCH (20:40)
[2019-02-27] MEDS ORDERED: INSULIN ASPART [NOVOLOG] 3 ML PEN SC SCH (21:00)
[2019-02-28] MEDS: ACCU-CHEK XX SCH ×3 (01:25→14:00)
--- NOTE | 2019-02-28 01:41 | PN ---
Date/Time of Note Date/Time of Note DATE: 02/25/19 TIME: 21:36 Assessment/Plan Lines/Catheters IV C[facility] Type [facility]from [facility] Saline Lock Assessment/Plan Chief Complaint/Hosp Course 1. Cholelithiasis with questionable cholecystitis (no pericholecystic fluid, no gallbladder wall edema). HIDA negative for cholecystitis but positive for CBD obstruction -ERCP per GI -Antibiotics -IV fluids -Outpatient laparoscopic cholecystectomy> patient to call for appointment with our office 2. Abdominal pain: Improved -Pain management 3.Leukocytosis: Resolved 3. Hypochromic anemia: -Monitor and transfuse as needed 4. CKD -Limit nephrotoxic meds -Renally dose meds -Per renal 5. Diabetes: -Glucose management 6. Morbid obesity BMI: 43 -diet and exercise optimization -encourage weight loss Thank you Late entry 02/25 Subjective 24 Hr Interval Summary Feels well. Abdominal pain improved. Tolerating liquids. GI eval. No fevers, chills, sob, congested cough, cp, palpitations, guzman, dizziness, nausea, vomiting, diarrhea, dysuria. Exam/Review of Systems Vital Signs Vitals Vital Signs Date Temp Pulse Resp B/P (MAP) Pulse Ox O2 O2 Flow FiO2 Time Delivery Rate 02/27/19 98.0 79 18 160/76 97 19:39 (104) 02/27/19 Room Air 17:39 Intake and Output 02/27/19 02/27/19 02/28/19 1414:59 22:59 06:59 IntakeIntake Total 480 ml BalanceBalance 480 ml Exam Free Text/Dictation Feels well. Abdominal pain improved. GI eval for ERCP. No fevers, chills, sob, congested cough, cp, palpitations, guzman, dizziness, nausea, vomiting, diarrhea, dysuria. Constitutional: alert, oriented, obese; No distress Psych: nl mood/affect; No anxiety Head: normocephalic, atraumatic Eyes: nl conjunctiva, EOMI, PERRL; No icteric ENMT: nl external ears & nose, mucosa pink and moist Neck: supple, non-tender Respiratory: normal air movement; No congested cough, No labored breathing, No wheezing Cardiovascular: regular rate and rhythm; No edema Gastrointestinal: soft; No rebound or guarding, No tender Musculoskeletal: nl extremities to inspection; No joint tenderness Extremities: normal pulses; No calf tenderness Neurological: nl mental status, nl speech Skin: nl turgor, rash or lesions; No diaphoresis, No laceration Lymph: nl lymph nodes, nontender Results Result Diagram: 02/27/19 0429 02/27/19 0429 MARYSE CERVANTES MD February 28, 2019 01:41
--- NOTE | 2019-02-28 01:45 | PN ---
Date/Time of Note Date/Time of Note DATE: 02/27/19 TIME: 21:41 Assessment/Plan Lines/Catheters IV C[facility] Type (from [facility]): Saline Lock Assessment/Plan Chief Complaint/Hosp Course 1. Cholelithiasis with questionable cholecystitis (no pericholecystic fluid, no gallbladder wall edema). HIDA negative for cholecystitis but positive for CBD obstruction. s/p ERCP and sphincterotomy. -Antibiotics -IV fluids -Outpatient follow up to determine if she still wants sx 2. Abdominal pain: Improved -Pain management 3. Leukocytosis: Resolved 3. Hypochromic anemia: -Monitor and transfuse as needed 4. CKD -Limit nephrotoxic meds -Renally dose meds -Per renal 5. Diabetes: -Glucose management 6. Morbid obesity BMI: 43 -diet and exercise optimization -encourage weight loss Thank you Late entry 02/27 Subjective 24 Hr Interval Summary s/p ERCP and sphincterotomy. Abdominal pain resolved. Tolerating liquids. No fevers, chills, sob, congested cough, cp, palpitations, guzman, dizziness, nausea, vomiting, diarrhea, dysuria. Wants to go home and follow-up as outpatient to see if she still needs her gallbladder removed. Exam/Review of Systems Vital Signs Vitals Vital Signs Date Temp Pulse Resp B/P (MAP) Pulse Ox O2 O2 Flow FiO2 Time Delivery Rate 02/27/19 98.0 79 18 160/76 97 19:39 (104) 02/27/19 Room Air 17:39 Intake and Output 02/27/19 02/27/19 02/28/19 1414:59 22:59 06:59 IntakeIntake Total 480 ml BalanceBalance 480 ml Exam Free Text/Dictation Constitutional: alert, oriented, obese; No distress Psych: nl mood/affect; No anxiety Head: normocephalic, atraumatic Eyes: nl conjunctiva, EOMI, PERRL; No icteric ENMT: nl external ears & nose, mucosa pink and moist Neck: supple, non-tender Respiratory: normal air movement; No congested cough, No labored breathing, No wheezing Cardiovascular: regular rate and rhythm; No edema Gastrointestinal: soft; No rebound or guarding, No tender Musculoskeletal: nl extremities to inspection; No joint tenderness Extremities: normal pulses; No calf tenderness Neurological: nl mental status, nl speech Skin: nl turgor, rash or lesions; No diaphoresis, No laceration Lymph: nl lymph nodes, nontender Results Result Diagram: 02/27/19 0429 02/27/19 0429 MARYSE CERVANTES MD February 28, 2019 01:45
[2019-02-28 02:20] VITALS: BP 140/64; PULSE 82; RESP 18
[2019-02-28] MEDS: PIPER-TAZO 2.25 GM (PMX) 50 ML IVPB SCH ×2 (05:57→14:07)
[2019-02-28] MEDS: Insulin NOVOLOG SS MILD Algorithm (SS with meals and bedtime) SC SCH ×2 (07:00→11:30)
[2019-02-28 07:49] VITALS: BP 141/72; PULSE 83; RESP 18
--- NOTE | 2019-02-28 08:38 | PN ---
DATE: 02/28/2019 SUBJECTIVE: The patient is stable, no acute events overnight. No shortness of breath. No fevers, c hills, nausea or vomiting. The patient yesterday had ERCP, but no evidence of choledocholithiasis. OBJECTIVE: VITAL SIGNS: Blood pressure is 141/72, respirations 18, pulse 83, temperature 98.1. HEENT: Head is normocephalic. NECK: Supple. HEART: Regular rate. LUNGS: Show diminished breath sounds at the base. ABDOMEN: Soft. Mild tenderness to palpation. EXTREMITIES: Negative for clubbing, cyanosis, positive edema. DERMATOLOGIC: No rashes. MUSCULOSKELETAL: No joint effusion. NEUROLOGIC: No change in exam. LABORATORY DATA: Reviewed. MEDICATIONS: Reviewed. IMAGING STUDIES: Reviewed. ASSESSMENT AND PLAN: 1. Nonoliguric acute kidney injury on top of chronic kidney disease stage IV with unknown baseline E GFR. Etiology of acute kidney injury is secondary to hemodynamics. Renal function appears to be sta ble. We will continue current treatment plan, supportive care, renally dose all medications. The randi snyder's urinalysis was reviewed, no evidence of active sediment. The patient has nephrotic range pro teinuria, likely due to underlying advanced kidney. No immediate need for renal replacement therapy. 2. Metabolic acidosis secondary to chronic kidney disease. The patient remains on Bicitra, continue . 3. Anemia. Continue to monitor hemoglobin and hematocrit levels. We will give Epogen as needed. 4. Mineral bone disorder. Monitor calcium and phosphorus levels. 5. Volume overload. We will continue current diuretic regimen. We will intensify regimen. IV flui ds will be discontinued. 6. Cholelithiasis. The patient is status post ERCP. No evidence of choledocholithiasis. Continue to monitor. Follow up with general surgery for possibility of cholecystectomy. 7. Diabetes. Continue current insulin regimen. 8. Hypertension. Continue current blood pressure regimen. 9. Morbid obesity. Continue dietary modification. 10. Nausea and vomiting. Continue to monitor. Dictated By: GUICHO BELTRAN DO NR/NTS Conf#: [id number] DID#: [id number] CC: STACIE BENNETT MD; MATTIE CERVANTES DO; KP ADAMS MD;*EndCC*
[2019-02-28] MEDS: DOCUSATE SODIUM 100 MG CAP PO SCH (08:39)
[2019-02-28] MEDS: CALCIUM CARBONATE 500 MG CHEW TAB PO SCH ×2 (08:40→12:55)
[2019-02-28] MEDS: METOPROLOL 50 MG TAB PO SCH (08:40)
[2019-02-28] MEDS: FOLIC ACID 1 MG TAB PO SCH (08:40)
[2019-02-28] MEDS: FERROUS SULFATE (EC) 325 MG TAB PO SCH (08:40)
[2019-02-28] MEDS: NA BICARBONATE 650 MG TAB PO SCH ×2 (08:40→12:55)
[2019-02-28] MEDS: FUROSEMIDE 40 MG TAB PO SCH (08:40)
[2019-02-28] MEDS: NIFEdipine (XL) 60 MG TAB PO SCH (08:40)
[2019-02-28] MEDS: INSULIN GLARGINE [LANTus] (100 UNITS/ML) SYG SC SCH (08:42)
[2019-02-28] MEDS: INSULIN ASPART [NOVOLOG] 3 ML PEN SC SCH ×2 (08:43→12:54)
--- NOTE | 2019-02-28 12:05 | PN ---
Date/Time of Note Date/Time of Note DATE: 02/28/19 TIME: 11:56 Assessment/Plan VTE Prophylaxis Risk score (from Ns)>0 risk: 1 SCD applied (from Nsg): Yes Pharmacological prophylaxis: other (scds) Lines/Catheters [facility] Saline Lock Assessment/Plan Hospital Course Cholelithiasis with possible common bile duct obstruction on HIDA scan -Abdominal US with acute cholecystitis -HIDA scan without acute cholecystis though concern for common bile duct obstruction -MRCP-. There is mild dilatation of the extrahepatic bile ducts. Common bile duct measures 0.7 cm and tapers normally to the ampulla.. 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 Post sphincterotomy with improved emptying. Biliary Sludge removed No evidence of choledocholithiasis. Abdominal pain likely secondary to above Leukocytosis- resolved- min increase today 02/28- 11.2 Diabetes type 2 HTN Normocytic anemia CKD- followed by nephrology Plan: Soft diet tolerating well Monitor labs while hospitalized Pt states she will f/u with SX as an out-pt to discussed possible cholecystectomy Pt appears stable for out-pt management from GI point of view Patient seen in collaboration with Dr. Whitfield. Subjective: Course reviewed with nursing staff Patient interviewed and examined All labs, imaging and other results reviewed No over night events, no c/o n/v or abd pain Zahida diet well. Constitutional: alert, oriented Psych: no complaints Head: normocephalic, atraumatic Eyes: nl conjunctiva, nl lids ENMT: nl external ears & nose Neck: supple, non-tender Respiratory: clear to auscultation Cardiovascular: regular rate and rhythm Gastrointestinal: soft, tender (right upper quadrant tenderness) Musculoskeletal: nl extremities to inspection Extremities: normal pulses Result Diagram: 02/28/19 0442 02/28/19 0442 Results 24hrs Laboratory Tests Test 02/27/19 12:00 02/27/19 12:03 02/27/19 17:59 02/27/19 20:39 Urine Color STRAW Urine Clarity CLEAR Urine pH 7.0 Urine Specific 1.007 [place] Urine Ketones NEGATIVE Urine Nitrite NEGATIVE Urine Bilirubin NEGATIVE Urine Urobilinogen NEGATIVE Urine Leukocyte NEGATIVE Esterase Urine Microscopic 1 RBC Urine Microscopic 1 WBC Urine Hemoglobin 1+ H Urine Random 38.91 Creatinine Urine Random Sodium 56 Urine Glucose 2+ H Urine Total Protein 531.0 H Urine Test NEGATIVE Bedside Glucose 84 80 150 Test 02/28/19 04:42 02/28/19 08:39 02/28/19 10:32 White Blood Count 11.2 H Red Blood Count 3.70 L Hemoglobin 10.0 L Hematocrit 31.1 L Mean Corpuscular 84.1 Volume Mean Corpuscular 27.0 L Hemoglobin Mean Corpuscular 32.2 Hemoglobin Concent Red Cell 21.2 H Distribution Width Platelet Count 345 Mean Platelet Volume 11.2 H Immature 0.400 Granulocytes % Neutrophils % 88.2 H Lymphocytes % 6.2 L Monocytes % 4.9 Eosinophils % 0.0 Basophils % 0.3 Nucleated Red Blood 0.0 Cells % Immature 0.040 H Granulocytes # Neutrophils # 9.9 H Lymphocytes # 0.7 L Monocytes # 0.6 Eosinophils # 0.0 Basophils # 0.0 Nucleated Red Blood 0.0 Cells # Sodium Level 138 Potassium Level 4.2 Chloride Level 114 H Carbon Dioxide Level 18 L Anion Gap 6 Blood Urea Nitrogen 32 H Creatinine 3.27 H Est Glomerular 16 L Filtrat Rate mL/min Glucose Level 137 # Calcium Level 7.9 L Bedside Glucose 116 144 Exam/Review of Systems Exam Vitals Vital Signs Date Temp Pulse Resp B/P (MAP) Pulse Ox O2 O2 Flow FiO2 Time Delivery Rate 02/28/19 98.1 83 18 141/72 93 07:49 (95) 02/27/19 Room Air 17:39 Intake and Output 02/27/19 02/27/19 02/28/19 1515:00 23:00 07:00 IntakeIntake Total 530 ml 50 ml BalanceBalance 530 ml 50 ml Results Results 24hrs Laboratory Tests Test 02/27/19 12:00 02/27/19 12:03 02/27/19 17:59 02/27/19 20:39 Urine Color STRAW Urine Clarity CLEAR Urine pH 7.0 Urine Specific 1.007 [place] Urine Ketones NEGATIVE Urine Nitrite NEGATIVE Urine Bilirubin NEGATIVE Urine Urobilinogen NEGATIVE Urine Leukocyte NEGATIVE Esterase Urine Microscopic 1 RBC Urine Microscopic 1 WBC Urine Hemoglobin 1+ H Urine Random 38.91 Creatinine Urine Random Sodium 56 Urine Glucose 2+ H Urine Total Protein 531.0 H Urine Test NEGATIVE Bedside Glucose 84 80 150 Test 02/28/19 04:42 02/28/19 08:39 02/28/19 10:32 White Blood Count 11.2 H Red Blood Count 3.70 L Hemoglobin 10.0 L Hematocrit 31.1 L Mean Corpuscular 84.1 Volume Mean Corpuscular 27.0 L Hemoglobin Mean Corpuscular 32.2 Hemoglobin Concent Red Cell 21.2 H Distribution Width Platelet Count 345 Mean Platelet Volume 11.2 H Immature 0.400 Granulocytes % Neutrophils % 88.2 H Lymphocytes % 6.2 L Monocytes % 4.9 Eosinophils % 0.0 Basophils % 0.3 Nucleated Red Blood 0.0 Cells % Immature 0.040 H Granulocytes # Neutrophils # 9.9 H Lymphocytes # 0.7 L Monocytes # 0.6 Eosinophils # 0.0 Basophils # 0.0 Nucleated Red Blood 0.0 Cells # Sodium Level 138 Potassium Level 4.2 Chloride Level 114 H Carbon Dioxide Level 18 L Anion Gap 6 Blood Urea Nitrogen 32 H Creatinine 3.27 H Est Glomerular 16 L Filtrat Rate mL/min Glucose Level 137 # Calcium Level 7.9 L Bedside Glucose 116 144 Medications Medication Current Medications IV Flush (NS 3 ml) 3 ml PER PROTOCOL IV ; Start 02/23/19 at 04:00 Ondansetron HCl (Zofran Inj) 4 mg Q6H PRN IV NAUSEA/VOMITING Last administered on 02/24/19at 01:10; Admin Dose 4 MG; Start 02/23/19 at 04:00 Acetaminophen (Tylenol Supp) 650 mg Q6H PRN GA .PAIN 1-3 OR TEMP; Start 02/23/19 at 04:00 Morphine Sulfate (morphine) 2 mg Q4H PRN IV .SEVERE PAIN 7-10 Last administered on 02/23/19at 19:47; Admin Dose 2 MG; Start 02/23/19 at 04:00 Albuterol/ Ipratropium (Duoneb) 3 ml Q2H RESP THERAPY PRN HHN SHORTNESS OF BREATH; Start 02/23/19 at 04:00 Hydralazine HCl (Apresoline) 10 mg Q4H PRN IV SBP > 160 Last administered on 02/27/19at 08:21; Admin Dose 10 MG; Start 02/23/19 at 04:00 Piperacillin Sod/ Tazobactam Sod 50 ml @ 100 mls/hr Q8 IVPB Last administered on 02/28/19 05:57; Admin Dose 100 MLS/HR; Start 02/23/19 at 06:00 Miscellaneous Information 1 ea NOTE XX ; Start 02/23/19 at 04:00 Glucose (Glutose) 15 gm Q15M PRN PO DECREASED GLUCOSE; Start 02/23/19 at 04:00 Glucose (Glutose) 22.5 gm Q15M PRN PO DECREASED GLUCOSE; Start 02/23/19 at 04:00 Glucagon (Glucagen) 1 mg Q15M PRN IM DECREASED GLUCOSE; Start 02/23/19 at 04:00 Glucose (Glutose) 15 gm Q15M PRN BUCCAL DECREASED GLUCOSE; Start 02/23/19 at 04:00 Diagnostic Test (Pha) (Accu-Chek) 1 ea 02 XX ; Start 02/24/19 at 02:00 Diagnostic Test (Pha) (Accu-Chek) 1 ea 2 HOURS AFTER MEALS XX Last administered on 02/23/19at 20:41; Admin Dose 1 EA; Start 02/23/19 at 10:00 Insulin Glargine (Lantus) 6 units DAILY@0800 SC Last administered on 02/28/19at 08:42; Admin Dose 6 UNITS; Start 02/23/19 at 09:00 Insulin Aspart (Novolog Insulin Pen) 3 unit WITH MEALS SC Last administered on 02/28/19at 08:43; Admin Dose 3 UNIT; Start 02/23/19 at 12:00 Miscellaneous Information 1 ea NOTE XX ; Start 02/23/19 at 09:00 Dextrose (D50w Syringe) 25 ml Q15M PRN IV DECREASED GLUCOSE; Start 02/23/19 at 09:00 Dextrose (D50w Syringe) 50 ml Q15M PRN IV DECREASED GLUCOSE; Start 02/23/19 at 09:00 Ergocalciferol (Drisdol) 50,000 unit Q7D PO Last administered on 02/24/19at 17:38; Admin Dose 50,000 UNIT; Start 02/24/19 at 12:30 Folic Acid (Folic Acid) 1 mg DAILY PO Last administered on 02/28/19at 08:40; Admin Dose 1 MG; Start 02/25/19 at 09:00 Metoprolol Tartrate (Lopressor) 50 mg BID PO Last administered on 02/28/19at 08:40; Admin Dose 50 MG; Start 02/24/19 at 09:30 Calcium Carbonate (Tums) 500 mg PC MEALS PO Last administered on 02/28/19 08:40; Admin Dose 500 MG; Start 02/24/19 at 13:00 Dextrose/Sodium Chloride 1,000 ml @ 40 mls/hr Q24H IV Last administered on 02/27/19 01:07; Admin Dose 75 MLS/HR; Start 02/26/19 at 11:00 Hydralazine HCl (Apresoline) 10 mg Q6H PRN IV sbp>160mmhg; Start 02/26/19 at 12:30 Clonidine HCl (Catapres-Tts 2 Patch) 1 patch Q7D TRANSDERM Last administered on 02/26/19 14:46; Admin Dose 1 PATCH; Start 02/26/19 at 14:00 Furosemide (Lasix) 40 mg DAILY PO Last administered on 02/28/19 08:40; Admin Dose 40 MG; Start 02/26/19 at 12:30 Hydralazine HCl (Apresoline) 100 mg Q8 PO Last administered on 02/28/19 06:03; Admin Dose 100 MG; Start 02/26/19 at 14:00 Sodium Bicarbonate (Sodium Bicarbonate Tab) 650 mg TID PO Last administered on 02/28/19 08:40; Admin Dose 650 MG; Start 02/26/19 at 13:00 Ferrous Sulfate (Ferrous Sulfate (Ec)) 325 mg BID PO Last administered on 02/28/19 08:40; Admin Dose 325 MG; Start 02/26/19 at 21:00 Docusate Sodium (Colace) 100 mg BID PO Last administered on 02/28/19 08:39; Admin Dose 100 MG; Start 02/26/19 at 21:00 Nifedipine (Procardia Xl) 60 mg BID PO Last administered on 02/28/19 08:40; Admin Dose 60 MG; Start 02/27/19 at 09:00 Insulin Aspart (Novolog Insulin Pen) (Adult SC Insulin - Mild Algorithm)... AC MEALS AND BEDTIME SC ; Start 02/27/19 at 21:00 SAMIRA MCHUGH February 28, 2019 12:04
[2019-02-28] MEDS ORDERED: NIFE60TA2 PO (12:44)
[2019-02-28] MEDS ORDERED: DOCU-144 PO (12:44)
[2019-02-28] MEDS ORDERED: FER325 PO (12:44)
--- NOTE | 2019-02-28 12:49 | DS ---
Date/Time of Note Date/Time of Note DATE: 02/28/19 TIME: 12:32 Discharge Summary Admission/Discharge Info Admit Date/Time February 23, 2019 at 03:37 Discharge Date/Time Discharge Diagnosis Cholelithiasis with possible common bile duct obstruction on HIDA scan -There was concern for possible cholecystitis on ultrasound, but patient had no gallbladder wall thickening or pericholecystic edema. HIDA scan was also negative for cholecystitis -ERCP negative for choledocholithiasis Abdominal pain likely secondary to above: Resolved Leukocytosis Diabetes type 2 HTN Normocytic anemia CKD stage IV Morbid obesity Patient Condition: Stable Consults General surgery: Moody Tena MD Gastroenterology: Gt Whitfield MD Nephrology: Crescencio Jacinto MD . Procedures -Abdominal US with acute cholecystitis -HIDA scan without acute cholecystis though concern for common bile duct obstruction -MRCP-. There is mild dilatation of the extrahepatic bile ducts. Common bile duct measures 0.7 cm and tapers normally to the ampulla.. 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 Post sphincterotomy with improved emptying. Biliary Sludge removed No evidence of choledocholithiasis. Hospital Course This is a very pleasant 34-year-old female with hypertension, type 2 diabetes, CKD who presented to the emergency room with abdominal pain nausea vomiting. She was found to have cholelithiasis with possible cholecystitis and concern for possible CBD obstruction on HIDA scan. Though there was no biliary dilatation on MRCP, there was concern for possible extrahepatic dilatation. Unfortunately due to logistics, it took a while to get her MRI also to get ERCP. Patient eventually had ERCP February 27, 2019 that showed no choledocholithiasis. At that time patient's pain was well controlled. She was seen in-house by general surgery, and the decision was made for her to be discharged and she felt that her cholecystectomy done as outpatient. This was communicated to her, she was in agreement to the plan. At this time she is tolerating a diet, is no further abdominal pain, she stable for discharge for continued follow-up outpatient. . Home Meds Reported Medications Sodium Bicarbonate (Antacid) 650 Mg Tablet, 650 MG PO TID, TAB 02/23/19 Clonidine Patch (CLONIDINE PATCH) 0.2 Mg/24 Hr Patch, 1 PATCH.WK TD Q7D, #4 PATCH.WK 5/11/19 Furosemide* (Furosemide*) 40 Mg Tablet, 40 MG PO DAILY, TAB 02/23/19 Folic Acid* (Folic Acid*) 1 Mg Tablet, 1 MG PO DAILY, TAB 02/23/19 Ergocalciferol (Vitamin D2) (VITAMIN D2) 50,000 Unit Capsule, 63289 UNIT PO Q7D, CAP 02/23/19 Glipizide* (Glipizide ER*) 2.5 Mg Tab.er.24, 2.5 MG PO DAILY, TAB 02/23/19 Hydralazine Hcl* (Hydralazine Hcl*) 100 Mg Tablet, 100 MG PO Q8, #90 TAB 02/23/19 Lisinopril* (Lisinopril*) 2.5 Mg Tablet, 2.5 MG PO DAILY, #30 TAB 02/23/19 Metoprolol Tartrate* (Lopressor*) 50 Mg Tab, 50 MG PO BID, #60 TAB 02/23/19 Discontinued Reported Medications Clonidine Hcl* (Catapres*) 0.2 Mg Tablet, 0.2 MG PERCUTANE DAILY, TAB 11/07/17 Clonidine Hcl* (Clonidine Hcl*) 0.2 Mg Tablet, 0.2 MG PO Q8, TAB 11/07/17 Amlodipine Besylate* (Amlodipine Besylate*) 10 Mg Tablet, 10 MG PO DAILY, #30 TAB 11/07/17 Glipizide XL* (Glipizide XL*) 2.5 Mg Tab.er.24, 2.5 MG PO DAILY, TAB 11/07/17 Hydralazine Hcl* (Hydralazine Hcl*) 50 Mg Tab, 50 MG PO Q8 PRN for prn, #90 TAB 11/07/17 Ferric Sulfate (FERRIC SULFATE) 1 Gm Granules, 325 MG MC TID 11/07/17 Levofloxacin* (Levofloxacin*) 250 Mg Tablet, 250 MG PO DAILY, TAB 11/07/17 Hydrocodone/Acetaminophen ([place] 5-325 Tablet) 1 Each Tablet, 1 EACH PO Q6H PRN for prn, TAB 11/07/17 Furosemide* (Furosemide*) 40 Mg Tablet, 40 MG PO DAILY, TAB 11/07/17 Metoprolol Tartrate* (Lopressor*) 25 Mg Tab, 25 MG PO BID, #60 TAB 11/07/17 Follow-up Plan Follow-up with the general surgeon Dr. Moody Tena MD to get cholecystectomy scheduled. Name, Degree : Moody Tena MD Specialty : General Surgery Office Address : [address] [place] [address] [place] [address] [place] [address] Office Office Also followup with your primary doctor within the next 1-2 weeks, to notify them of what happened in the hospital and ensure continued resolution of symptoms. Review your medication list with your nurse before leaving and if you need new prescriptions please let your nurse know. I may have made changes to your home medications or given you new prescriptions, please let your primary doctor know as well. Stay compliant with your medications and report any side effects to your PCP or pharmacist. Return to the ER if you have any concerns and cannot reach your doctors or call your insurance company, they usually have a nurse that can help you. Primary Care Provider Not On Staff Doctor Time spent on discharge: > 30 minutes Pending Labs Laboratory Tests Test 02/27/19 17:59 02/27/19 20:39 02/28/19 04:42 02/28/19 08:39 Bedside 80 150 116 Glucose mg/dL (70-220) mg/dL (70-220) mg/dL (70-220) White Blood 11.2 Count 10^3/ul (4.8-1 0.8) Red Blood 3.70 Count 10^6/ul (4.20- 5.40) Hemoglobin 10.0 g/dl (12.0-16. 0) Hematocrit 31.1 % (37.0-47.0) Mean 84.1 Corpuscular fl (82.0-101.0 Volume ) Mean 27.0 Corpuscular pg (29.0-33.0) Hemoglobin Mean 32.2 Corpuscular g/dl (32.0-37. Hemoglobin Conc 0) ent Red Cell 21.2 Distribution % (11.5-14.5) Width Platelet Count 345 10^3/UL (140-4 15) Mean Platelet 11.2 Volume fl (7.4-10.4) Immature 0.400 Granulocytes % % (0.001-0.429 ) Neutrophils % 88.2 % (39.0-77.0) Lymphocytes % 6.2 % (15.0-51.0) Monocytes % 4.9 % (0.0-11.0) Eosinophils % 0.0 % (0.0-7.0) Basophils % 0.3 % (0.0-2.0) Nucleated Red 0.0 Blood Cells % /100WBC (0.0-0 .0) Immature 0.040 Granulocytes # 10^3/ul (0.0-0 .031) Neutrophils # 9.9 10^3/ul (1.6-7 .5) Lymphocytes # 0.7 10^3/ul (0.8-2 .9) Monocytes # 0.6 10^3/ul (0.3-0 .9) Eosinophils # 0.0 10^3/ul (0.0-0 .5) Basophils # 0.0 10^3/ul (0.0-0 .1) Nucleated Red 0.0 Blood Cells # 10^3/ul (0.0-0 .0) Sodium Level 138 mmol/L (135-14 4) Potassium 4.2 Level mmol/L (3.5-5. 1) Chloride Level 114 mmol/L (97-110 ) Carbon Dioxide 18 Level mmol/L (21-31) Anion Gap 6 (5-13) Blood Urea 32 Nitrogen mg/dl (7-20) Creatinine 3.27 mg/dl (0.44-1. 00) Est Glomerular 16 Filtrat mL/min (>60) Rate mL/min Glucose Level 137 mg/dl (70-220) Calcium Level 7.9 mg/dl (8.4-10. 2) Test 02/28/19 10:32 Bedside 144 Glucose mg/dL (70-220) KP ADAMS February 28, 2019 12:42
--- NOTE | 2019-02-28 12:50 | PDOCDIS ---
Discharge Instructions DIAGNOSIS Discharge Diagnosis Cholelithiasis with possible common bile duct obstruction on HIDA scan -There was concern for possible cholecystitis on ultrasound, but patient had no gallbladder wall thickening or pericholecystic edema. HIDA scan was also negative for cholecystitis -ERCP negative for choledocholithiasis Abdominal pain likely secondary to above: Resolved Leukocytosis Diabetes type 2 HTN Normocytic anemia CKD stage IV Morbid obesity CONDITION [id number] Patient Condition: [id number] Stable HOME CARE INSTRUCTIONS: [id number] Diet Instructions: Fyinn6m Low Fat /Cholesterol Neadh4Ng Special Diet: [id number] FOLLOW UP/APPOINTMENTS Follow-up Plan Follow-up with the general surgeon Dr. Moody Tena MD to get cholecystectomy scheduled. Name, Degree : Moody Tena MD Specialty : General Surgery Office Address : [address] [place] [address] Office Office Also followup with your primary doctor within the next 1-2 weeks, to notify them of what happened in the hospital and ensure continued resolution of symptoms. Review your medication list with your nurse before leaving and if you need new prescriptions please let your nurse know. I may have made changes to your home medications or given you new prescriptions, please let your primary doctor know as well. Stay compliant with your medications and report any side effects to your PCP or pharmacist. Return to the ER if you have any concerns and cannot reach your doctors or call your insurance company, they usually have a nurse that can help you. SCHOOL/WORK RELEASE May return to School/Work on: March 04, 2019 School/Work Release Comment: Please excuse patient from work from until March 03, 2019 KP ADAMS February 28, 2019 12:50
[2019-02-28 14:20] VITALS: BP 121/60; PULSE 77; RESP 16
== END 2019-02-28 15:30 | disposition home or self-care (01) | DRG 445 ==
LOC: E/R 20:56 → 2NE 02-23 02:55 → OBSVTOIN 02-23 03:37
PROVIDERS: ADMIT Internal Medicine; ATTEND Family Medicine
PROC: 0F798ZZ Dilation of Common Bile Duct, Via Natural or Artificial Opening Endoscopic (ICD-10-PCS; principal; 2019-02-27 16:30)
DX: K80.21 Calculus of gallbladder without cholecystitis with obstruction (principal); N17.9 Acute kidney failure, unspecified; Z68.41 Body mass index [BMI] 40.0-44.9, adult; R65.10 Systemic inflammatory response syndrome (SIRS) of non-infectious origin without acute organ dysfunction; N18.4 Chronic kidney disease, stage 4 (severe); I16.0 Hypertensive urgency; E66.01 Morbid (severe) obesity due to excess calories; D64.9 Anemia, unspecified; K76.0 Fatty (change of) liver, not elsewhere classified; E11.9 Type 2 diabetes mellitus without complications; E83.39 Other disorders of phosphorus metabolism; I12.9 Hypertensive chronic kidney disease with stage 1 through stage 4 chronic kidney disease, or unspecified chronic kidney disease; R11.2 Nausea with vomiting, unspecified
CPT/HCPCS: 36415; 74181; 74330; 76705; 78226; 80048; 80053; 80061; 81001; 81003; 82043; 82962; 83036; 83540; 83605; 83690; 83735; 84100; 84155; 84300; 84484; 84703; 85025; 85651; 86706; 86708; 86803; 87340; 93005; 96374; 96375; A9537; G0378; J0360; J1100; J1815; J2270; J2405; J2543; J2765; J2916; J3010; J7030; J7042; J7120; Q9967

== ENCOUNTER 2019-05-19 00:54 | Inpatient (IN) | payer OTHER ==
[2019-05-19] VITALS (17 sets, daily range): BP systolic 119–168; BP diastolic 65–79; PULSE 80–91; RESP 16–28; Ht 160 cm; Wt 124.5 kg
[~2019-05-19] VITALS: Ht 160 cm; Wt 124.5 kg
[~2019-05-19 00:54] MED LIST changes: +ACET-2047 PO; -AMLO-147 PO; +CALC667C PO; +CHOL400C PO; -CLON0.2T12 PERCUTANE; -CLON0.2T5 PO; +CLON1PAT2 TD; +DOCU-144 PO; +ERGO500013 PO; +FER325 PO; -FERR1GRA MC; +FOLI-49 PO; -GLIP2.5T14 PO; +GLIP2.5T3 PO; -HYDR-3672 PO; -HYDR-4011 PO; +HYDR100T25 PO; +LANO454C2 TOP; -LEVO250T9 PO; +LOSA25TA2 PO; +METO-429 PO; -METO-448 PO; +NEPH PO; +NIFE60TA2 PO; +SODI473S5 TP; +SODI650T PO; +Vancomycin Iv Per Pharmacy XX
[2019-05-19] MEDS ORDERED: ACETAMINOPHEN 500 MG TAB PO STA (01:19)
[2019-05-19] MEDS ORDERED: PIPER-TAZO 3.375 GM IV (PMX) 100 ML IVPB STA (01:19)
[2019-05-19] MEDS ORDERED: VANCOMYCIN 1 GM (PMX) 250 ML IVPB STA (01:19)
[2019-05-19] MEDS ORDERED: SODIUM CHLORIDE 0.9% 1L BAG IV* STA (01:27)
[2019-05-19] MEDS ORDERED: ACETAMINOPHEN 325 MG TAB PO PRN ×2 (02:00→02:30)
[2019-05-19] MEDS ORDERED: ONDANSETRON 4 MG INJ IV PRN ×2 (02:00→16:30)
[2019-05-19] MEDS ORDERED: NACL 0.9% 3 ML SYG IV SCH (02:30)
[2019-05-19] MEDS ORDERED: HYDROCODONE/APAP (5/325) TAB PO PRN (02:30)
[2019-05-19] MEDS: NIFEdipine (XL) 60 MG TAB PO SCH ×3 (02:36→20:55)
[2019-05-19] MEDS: METOPROLOL 50 MG TAB PO SCH ×3 (02:36→20:55)
[2019-05-19] MEDS ORDERED: VANCOMYCIN 1 GM in 250 ML IVPB ONE (04:15)
[2019-05-19] MEDS: ONDANSETRON 4 MG INJ IV PRN ×2 (07:38→20:57)
[2019-05-19] MEDS: CEFEPIME 1GM/50 ML (PMX) 50 ML IVPB SCH ×2 (08:34→21:03)
[2019-05-19] MEDS: FOLIC ACID 1 MG TAB PO SCH (08:37)
[2019-05-19] MEDS: HEPARIN 5,000 UNIT/1 ML VIAL SC SCH ×2 (08:40→21:00)
[2019-05-19] MEDS: FERROUS SULFATE (EC) 325 MG TAB PO SCH ×2 (08:42→21:00)
[2019-05-19] MEDS ORDERED: VANCOMYCIN IV PER PHARMACY XX SCH (09:00)
[2019-05-19] MEDS ORDERED: DEXTROSE 50% 50 ML SYRINGE IV PRN ×2 (10:30)
[2019-05-19] MEDS ORDERED: GLUCAGON 1 MG INJ IM PRN (10:30)
[2019-05-19] MEDS ORDERED: GLUCOSE GEL 15 GRAM TUBE BUCCAL PRN (10:30)
[2019-05-19] MEDS ORDERED: GLUCOSE GEL 15 GRAM TUBE PO PRN ×2 (10:30)
[2019-05-19] MEDS ORDERED: INSULIN GLARGINE [LANTus] (100 UNITS/ML) SYG SC SCH (11:00)
[2019-05-19] MEDS: INSULIN ASPART [NOVOLOG] 3 ML PEN SC SCH ×3 (12:00→20:53)
[2019-05-19] MEDS ORDERED: POLYMYXIN/BACITRACIN 1L IRRIG ONE (15:11)
[2019-05-19] MEDS ORDERED: BACITRACIN 50000 UNITS INJ ONE (15:11)
[2019-05-19] MEDS ORDERED: POLYMYXIN B 500000 UNIT INJ ONE (15:13)
[2019-05-19] MEDS ORDERED: MIDAZOLAM 1 MG/ML 2 ML INJ ONE (15:25)
[2019-05-19] MEDS ORDERED: FENTAnyl 50 MCG/ML VIAL ONE ×2 (15:26→15:40)
[2019-05-19] MEDS ORDERED: ROPIVACAINE 0.5 % 30 ML VIAL ONE (15:26)
[2019-05-19] MEDS ORDERED: BUPIVACAINE 0.5% (SDV) 30 ML INJ ONE (15:29)
[2019-05-19] MEDS ORDERED: CEFAZOLIN 1 GM INJ ONE (15:38)
[2019-05-19] MEDS ORDERED: LIDOCAINE 2% (SDV) 5 ML INJ ONE (16:18)
[2019-05-19] MEDS ORDERED: PROPOFOL 20 ML ONE (16:18)
[2019-05-19] MEDS ORDERED: ONDANSETRON 4 MG INJ ONE (16:18)
[2019-05-19] MEDS ORDERED: HYDROmorphONE 1 MG/5 ML IV SYRINGE IV PRN ×2 (16:30)
[2019-05-19] MEDS ORDERED: MEPERIDINE 25 MG INJ IV PRN (16:30)
[2019-05-19] MEDS ORDERED: METOCLOPRAMIDE 10 MG INJ IV PRN (16:30)
[2019-05-19] MEDS ORDERED: LABETALOL HCL 20MG INJ IV PRN (16:30)
[2019-05-19] MEDS ORDERED: NALOXONE (0.4 MG/ML) INJ IV PRN (16:30)
[2019-05-19] MEDS ORDERED: DIPHENHYDRAMINE 50 MG INJ IV PRN (16:30)
[2019-05-19] MEDS ORDERED: FENTAnyl 50 MCG/ML VIAL IV PRN (16:30)
[2019-05-19] MEDS ORDERED: hydrALAzine 20 MG INJ IV PRN (16:30)
[2019-05-19] MEDS: INSULIN GLARGINE [LANTus] (100 UNITS/ML) SYG SC SCH (21:02)
[2019-05-20] MEDS: ACCU-CHEK XX SCH (01:27)
[2019-05-20] MEDS ORDERED: METOCLOPRAMIDE 10 MG INJ IV ONE (02:30)
[2019-05-20 02:42] VITALS: BP 106/53; PULSE 78; RESP 16
[2019-05-20 07:36] VITALS: BP 121/61; PULSE 81; RESP 16
[2019-05-20] MEDS ORDERED: EPOETIN ALFA-EPBX (NON-ESRD 10,000 UNIT/ML VIAL SC ONE (08:00)
[2019-05-20] MEDS: INSULIN ASPART [NOVOLOG] 3 ML PEN SC SCH ×4 (08:00→20:59)
[2019-05-20] MEDS: DAKINS 0.0125%(1/40) 473 ML SOLUTION TP SCH (09:00)
[2019-05-20] MEDS: CEFEPIME 1GM/50 ML (PMX) 50 ML IVPB SCH (09:32)
[2019-05-20] MEDS: FOLIC ACID 1 MG TAB PO SCH (09:33)
[2019-05-20] MEDS: NIFEdipine (XL) 60 MG TAB PO SCH ×2 (09:34→21:02)
[2019-05-20] MEDS: METOPROLOL 50 MG TAB PO SCH ×2 (09:34→21:02)
[2019-05-20] MEDS: HEPARIN 5,000 UNIT/1 ML VIAL SC SCH ×2 (09:36→21:05)
[2019-05-20] MEDS: FERROUS SULFATE (EC) 325 MG TAB PO SCH ×2 (09:38→20:59)
[2019-05-20] MEDS: SOD FERRIC GLUC COMPLX 125 MG in SOD CHLORIDE 0.9% 100 ML IVPB SCH (13:00)
[2019-05-20 14:19] VITALS: BP 109/60; PULSE 72; RESP 16
[2019-05-20] MEDS ORDERED: FUROSEMIDE 40 MG INJ IV ONE (16:00)
[2019-05-20 20:28] VITALS: BP 112/61; PULSE 77; RESP 18
[2019-05-20] MEDS: INSULIN GLARGINE [LANTus] (100 UNITS/ML) SYG SC SCH (21:04)
[2019-05-20] MEDS ORDERED: FUROSEMIDE 40 MG TAB PO ONE (23:00)
[2019-05-21] MEDS: HYDROCODONE/APAP (5/325) TAB PO PRN ×2 (00:48→11:51)
[2019-05-21] MEDS: DAPTOMYCIN 500 MG in SOD CHLORIDE 0.9% 100 ML IVPB SCH (01:14)
[2019-05-21] MEDS ORDERED: FUROSEMIDE 40 MG INJ IV ONE (01:30)
[2019-05-21 01:50] VITALS: BP 110/68; PULSE 66; RESP 20
[2019-05-21] MEDS: ACCU-CHEK XX SCH (01:59)
[2019-05-21 08:00] VITALS: BP 126/67; PULSE 69; RESP 20
[2019-05-21] MEDS: INSULIN ASPART [NOVOLOG] 3 ML PEN SC SCH ×4 (08:00→21:00)
[2019-05-21] MEDS: HEPARIN 5,000 UNIT/1 ML VIAL SC SCH ×2 (09:00→21:32)
[2019-05-21] MEDS ORDERED: CEFEPIME 1GM/50 ML (PMX) 50 ML IVPB SCH (09:00)
[2019-05-21] MEDS: DAKINS 0.0125%(1/40) 473 ML SOLUTION TP SCH (09:00)
[2019-05-21] MEDS: FOLIC ACID 1 MG TAB PO SCH (10:25)
[2019-05-21] MEDS: FERROUS SULFATE (EC) 325 MG TAB PO SCH ×2 (10:25→21:28)
[2019-05-21] MEDS: NIFEdipine (XL) 60 MG TAB PO SCH ×2 (10:26→21:29)
[2019-05-21] MEDS: METOPROLOL 50 MG TAB PO SCH ×2 (10:26→21:29)
[2019-05-21] MEDS: CEFTRIAXONE 1 GM/50 ML (PMX) 50 ML IVPB SCH (12:28)
[2019-05-21] MEDS: SOD FERRIC GLUC COMPLX 125 MG in SOD CHLORIDE 0.9% 100 ML IVPB SCH (13:00)
[2019-05-21] MEDS: ONDANSETRON 4 MG INJ IV PRN (13:47)
[2019-05-21] MEDS ORDERED: LIDOCAINE 1% (MPF) 5 ML VIAL ONE (13:56)
[2019-05-21] MEDS ORDERED: HEPARIN 1000 UNITS/ML 10 ML INJ ONE (13:58)
[2019-05-21] MEDS ORDERED: FENTAnyl 50 MCG/ML VIAL ONE (15:01)
[2019-05-21 16:43] VITALS: BP 131/84; PULSE 66; RESP 28
[2019-05-21 20:00] VITALS: BP 139/74; PULSE 74; RESP 18
[2019-05-21] MEDS: INSULIN GLARGINE [LANTus] (100 UNITS/ML) SYG SC SCH (21:33)
[2019-05-22] VITALS (13 sets, daily range): BP systolic 117–177; BP diastolic 62–87; PULSE 68–83; RESP 16–28
[2019-05-22] MEDS: ONDANSETRON 4 MG INJ IV PRN (00:32)
[2019-05-22] MEDS: ACCU-CHEK XX SCH (01:50)
[2019-05-22] MEDS: morphine 2 MG INJ IV PRN ×2 (04:20→23:05)
[2019-05-22] MEDS: INSULIN ASPART [NOVOLOG] 3 ML PEN SC SCH ×4 (08:00→20:49)
[2019-05-22] MEDS: METOPROLOL 50 MG TAB PO SCH ×2 (08:18→21:50)
[2019-05-22] MEDS: NIFEdipine (XL) 60 MG TAB PO SCH ×2 (08:19→21:51)
[2019-05-22] MEDS: HEPARIN 5,000 UNIT/1 ML VIAL SC SCH ×2 (08:20→21:52)
[2019-05-22] MEDS: FERROUS SULFATE (EC) 325 MG TAB PO SCH ×2 (08:21→21:50)
[2019-05-22] MEDS: FOLIC ACID 1 MG TAB PO SCH (08:22)
[2019-05-22] MEDS: DAKINS 0.0125%(1/40) 473 ML SOLUTION TP SCH (08:24)
[2019-05-22] MEDS: CEFTRIAXONE 1 GM/50 ML (PMX) 50 ML IVPB SCH (11:37)
[2019-05-22] MEDS: SOD FERRIC GLUC COMPLX 125 MG in SOD CHLORIDE 0.9% 100 ML IVPB SCH (13:00)
[2019-05-22] MEDS ORDERED: HEPARIN 1000 UNITS/ML 10 ML INJ CATHETER ONE (19:30)
[2019-05-22] MEDS: INSULIN GLARGINE [LANTus] (100 UNITS/ML) SYG SC SCH (21:00)
[2019-05-22] MEDS: DAPTOMYCIN 500 MG in SOD CHLORIDE 0.9% 100 ML IVPB SCH (22:01)
[2019-05-23] VITALS (36 sets, daily range): BP systolic 134–190; BP diastolic 65–94; PULSE 76–107; RESP 17–29
[2019-05-23] MEDS: INSULIN ASPART [NOVOLOG] 3 ML PEN SC SCH ×5 (01:00→16:50)
[2019-05-23] MEDS: DEXTROSE 5%-0.45% NACL 1,000 ML IV SCH (01:19)
[2019-05-23] MEDS: ACCU-CHEK XX SCH (02:00)
[2019-05-23] MEDS: METOPROLOL 50 MG TAB PO SCH ×2 (08:43→21:05)
[2019-05-23] MEDS: FERROUS SULFATE (EC) 325 MG TAB PO SCH ×2 (08:43→21:05)
[2019-05-23] MEDS: FOLIC ACID 1 MG TAB PO SCH (08:43)
[2019-05-23] MEDS: NIFEdipine (XL) 60 MG TAB PO SCH ×2 (08:44→21:05)
[2019-05-23] MEDS: HEPARIN 5,000 UNIT/1 ML VIAL SC SCH ×2 (08:44→21:07)
[2019-05-23] MEDS: DAKINS 0.0125%(1/40) 473 ML SOLUTION TP SCH (08:45)
[2019-05-23] MEDS: CALCIUM ACETATE 667 MG CAP PO SCH ×2 (11:30→16:50)
[2019-05-23] MEDS: HEPARIN 1000 UNITS/ML 10 ML INJ CATHETER SCH (11:33)
[2019-05-23] MEDS: HYDROCODONE/APAP (5/325) TAB PO PRN (11:44)
[2019-05-23] MEDS: POLYETHYLENE GLYCOL 17 GM PACKET PO SCH (11:44)
[2019-05-23] MEDS: CEFTRIAXONE 1 GM/50 ML (PMX) 50 ML IVPB SCH (12:39)
[2019-05-23] MEDS: SOD FERRIC GLUC COMPLX 125 MG in SOD CHLORIDE 0.9% 100 ML IVPB SCH (13:50)
[2019-05-23] MEDS ORDERED: MIDAZOLAM 1 MG/ML 2 ML INJ ONE (16:30)
[2019-05-23] MEDS ORDERED: PROPOFOL 20 ML ONE (16:30)
[2019-05-23] MEDS ORDERED: FENTAnyl 50 MCG/ML VIAL ONE (16:30)
[2019-05-23] MEDS ORDERED: ROPIVACAINE 0.2% 20 ML VIAL ONE (16:30)
[2019-05-23] MEDS ORDERED: ONDANSETRON 4 MG INJ ONE (16:31)
[2019-05-23] MEDS ORDERED: METOCLOPRAMIDE 10 MG INJ ONE (16:31)
[2019-05-23] MEDS ORDERED: LIDOCAINE 1% (MPF) 30 ML INJ ONE (16:35)
[2019-05-23] MEDS ORDERED: ONDANSETRON 4 MG INJ IV PRN (17:00)
[2019-05-23] MEDS ORDERED: FENTAnyl 50 MCG/ML VIAL IV PRN ×3 (17:00)
[2019-05-23] MEDS ORDERED: MEPERIDINE 25 MG INJ IV PRN (17:00)
[2019-05-23] MEDS ORDERED: DIPHENHYDRAMINE 50 MG INJ IV PRN (17:00)
[2019-05-23] MEDS ORDERED: HYDROmorphONE 1 MG/5 ML IV SYRINGE IV PRN ×2 (17:00)
[2019-05-23] MEDS: HYDROmorphONE 1 MG/5 ML IV SYRINGE IV PRN ×2 (17:16→17:32)
[2019-05-23] MEDS ORDERED: hydrALAzine 20 MG INJ IV PRN (17:30)
[2019-05-23] MEDS ORDERED: HYDROmorphONE 2 MG/ML SYG IV PRN (18:30)
[2019-05-23] MEDS ORDERED: LABETALOL HCL 20MG INJ IV PRN (18:30)
[2019-05-23] MEDS: INSULIN GLARGINE [LANTus] (100 UNITS/ML) SYG SC SCH (21:00)
[2019-05-23] MEDS ORDERED: INSULIN ASPART [NOVOLOG] 3 ML PEN SC SCH (21:00)
[2019-05-23] MEDS: Insulin NOVOLOG SS MILD Algorithm (SS with meals and bedtime) SC SCH (21:00)
[2019-05-24] VITALS (18 sets, daily range): BP systolic 137–160; BP diastolic 64–81; PULSE 70–84; RESP 16–20
[2019-05-24] MEDS: ACCUCHECK AT 2AM (Patients on SS coverage) XX SCH (02:00)
[2019-05-24] MEDS: Insulin NOVOLOG SS MILD Algorithm (SS with meals and bedtime) SC SCH ×4 (07:30→20:33)
[2019-05-24] MEDS: FOLIC ACID 1 MG TAB PO SCH (08:17)
[2019-05-24] MEDS: FERROUS SULFATE (EC) 325 MG TAB PO SCH ×2 (08:17→20:30)
[2019-05-24] MEDS: POLYETHYLENE GLYCOL 17 GM PACKET PO SCH (08:17)
[2019-05-24] MEDS: CALCIUM ACETATE 667 MG CAP PO SCH ×3 (08:17→16:57)
[2019-05-24] MEDS: HEPARIN 5,000 UNIT/1 ML VIAL SC SCH ×2 (08:17→20:32)
[2019-05-24] MEDS: METOPROLOL 50 MG TAB PO SCH ×2 (08:18→20:30)
[2019-05-24] MEDS: NIFEdipine (XL) 60 MG TAB PO SCH ×2 (08:18→20:30)
[2019-05-24] MEDS: MULTIVIT/CA CARB/B CMPLX/FA TAB PO SCH (08:20)
[2019-05-24] MEDS: DAKINS 0.0125%(1/40) 473 ML SOLUTION TP SCH (08:20)
[2019-05-24] MEDS: DEXTROSE 5%-0.45% NACL 1,000 ML IV SCH (08:20)
[2019-05-24] MEDS: HYDROCODONE/APAP (5/325) TAB PO PRN (08:35)
[2019-05-24] MEDS ORDERED: EPOETIN ALFA-EPBX (ESRD) 10,000 UNIT/ML VIAL SC ONE (09:00)
[2019-05-24] MEDS: HEPARIN 1000 UNITS/ML 10 ML INJ CATHETER SCH (12:47)
[2019-05-24] MEDS: CEFTRIAXONE 1 GM/50 ML (PMX) 50 ML IVPB SCH (13:00)
[2019-05-24] MEDS: SOD FERRIC GLUC COMPLX 125 MG in SOD CHLORIDE 0.9% 100 ML IVPB SCH (13:50)
[2019-05-24] MEDS: INSULIN GLARGINE [LANTus] (100 UNITS/ML) SYG SC SCH (20:32)
[2019-05-25] MEDS: HYDROCODONE/APAP (5/325) TAB PO PRN (01:00)
[2019-05-25] MEDS ORDERED: EUCERIN 113 GM CR TOP SCH (01:00)
[2019-05-25] MEDS: ACCUCHECK AT 2AM (Patients on SS coverage) XX SCH (01:49)
[2019-05-25 02:40] VITALS: BP 124/60; PULSE 77; RESP 18
[2019-05-25] MEDS: Insulin NOVOLOG SS MILD Algorithm (SS with meals and bedtime) SC SCH ×4 (07:30→21:00)
[2019-05-25 08:00] VITALS: BP 146/56; PULSE 84; RESP 18
[2019-05-25] MEDS: CALCIUM ACETATE 667 MG CAP PO SCH ×3 (08:02→17:30)
[2019-05-25] MEDS: POLYETHYLENE GLYCOL 17 GM PACKET PO SCH (08:59)
[2019-05-25] MEDS: METOPROLOL 50 MG TAB PO SCH ×2 (09:01→21:24)
[2019-05-25] MEDS: MULTIVIT/CA CARB/B CMPLX/FA TAB PO SCH (09:01)
[2019-05-25] MEDS: HEPARIN 5,000 UNIT/1 ML VIAL SC SCH ×2 (09:02→21:26)
[2019-05-25] MEDS: FOLIC ACID 1 MG TAB PO SCH (09:02)
[2019-05-25] MEDS: NIFEdipine (XL) 60 MG TAB PO SCH ×2 (09:02→21:24)
[2019-05-25] MEDS: FERROUS SULFATE (EC) 325 MG TAB PO SCH ×2 (09:02→21:24)
[2019-05-25] MEDS: EUCERIN 113 GM CR TOP SCH ×2 (09:06→21:33)
[2019-05-25] MEDS: DAKINS 0.0125%(1/40) 473 ML SOLUTION TP SCH (09:07)
[2019-05-25] MEDS: CEFTRIAXONE 2 GM/50 ML (PMX) 50 ML IVPB SCH (12:29)
[2019-05-25] MEDS: metroNIDAZOLE 500 MG TAB PO SCH ×2 (14:40→21:23)
[2019-05-25 14:42] VITALS: BP 130/67; PULSE 76; RESP 16
[2019-05-25 20:09] VITALS: BP 136/65; PULSE 81; RESP 19
[2019-05-25] MEDS: INSULIN GLARGINE [LANTus] (100 UNITS/ML) SYG SC SCH (21:25)
[2019-05-26] VITALS (18 sets, daily range): BP systolic 118–176; BP diastolic 56–83; PULSE 71–83; RESP 16–19
[2019-05-26] MEDS: ACCUCHECK AT 2AM (Patients on SS coverage) XX SCH (02:00)
[2019-05-26] MEDS: metroNIDAZOLE 500 MG TAB PO SCH ×3 (06:22→21:18)
[2019-05-26] MEDS: HYDROCODONE/APAP (5/325) TAB PO PRN (06:32)
[2019-05-26] MEDS: Insulin NOVOLOG SS MILD Algorithm (SS with meals and bedtime) SC SCH ×4 (07:30→21:00)
[2019-05-26] MEDS: CALCIUM ACETATE 667 MG CAP PO SCH ×3 (07:35→17:44)
[2019-05-26] MEDS: DAKINS 0.0125%(1/40) 473 ML SOLUTION TP SCH (09:00)
[2019-05-26] MEDS: FOLIC ACID 1 MG TAB PO SCH ×2 (09:00→17:44)
[2019-05-26] MEDS: EUCERIN 113 GM CR TOP SCH ×2 (09:00→21:29)
[2019-05-26] MEDS: HEPARIN 5,000 UNIT/1 ML VIAL SC SCH ×3 (09:00→21:00)
[2019-05-26] MEDS: FERROUS SULFATE (EC) 325 MG TAB PO SCH ×2 (09:00→21:18)
[2019-05-26] MEDS: METOPROLOL 50 MG TAB PO SCH ×2 (09:00→21:23)
[2019-05-26] MEDS: MULTIVIT/CA CARB/B CMPLX/FA TAB PO SCH ×2 (09:00→17:44)
[2019-05-26] MEDS: POLYETHYLENE GLYCOL 17 GM PACKET PO SCH (09:00)
[2019-05-26] MEDS: NIFEdipine (XL) 60 MG TAB PO SCH (09:00)
[2019-05-26] MEDS ORDERED: POLYETHYLENE GLYCOL 17 GM PACKET PO PRN (12:30)
[2019-05-26] MEDS: HEPARIN 1000 UNITS/ML 10 ML INJ CATHETER SCH (14:22)
[2019-05-26] MEDS: CEFTRIAXONE 2 GM/50 ML (PMX) 50 ML IVPB SCH (14:27)
[2019-05-26] MEDS: FLUCONAZOLE 100 MG TAB PO SCH (14:27)
[2019-05-26] MEDS: INSULIN GLARGINE [LANTus] (100 UNITS/ML) SYG SC SCH (21:20)
[2019-05-26] MEDS: LOSARTAN 25 MG TAB PO SCH (21:21)
[2019-05-27] VITALS (11 sets, daily range): BP systolic 148–175; BP diastolic 69–83; PULSE 77–87; RESP 12–27
[2019-05-27] MEDS: ACCUCHECK AT 2AM (Patients on SS coverage) XX SCH (00:15)
[2019-05-27] MEDS ORDERED: INSULIN ASPART [NOVOLOG] 3 ML PEN SC SCH ×2 (01:00→11:30)
[2019-05-27] MEDS: INSULIN ASPART [NOVOLOG] 3 ML PEN SC SCH ×3 (01:00→09:00)
[2019-05-27] MEDS: metroNIDAZOLE 500 MG TAB PO SCH (05:52)
[2019-05-27] MEDS: CALCIUM ACETATE 667 MG CAP PO SCH ×3 (07:35→17:23)
[2019-05-27] MEDS ORDERED: FENTAnyl 50 MCG/ML VIAL ONE ×2 (08:18→09:12)
[2019-05-27] MEDS ORDERED: MIDAZOLAM 1 MG/ML 2 ML INJ ONE (08:18)
[2019-05-27] MEDS ORDERED: PROPOFOL 20 ML ONE (08:18)
[2019-05-27] MEDS: MULTIVIT/CA CARB/B CMPLX/FA TAB PO SCH (09:00)
[2019-05-27] MEDS: METOPROLOL 50 MG TAB PO SCH ×2 (09:00→21:33)
[2019-05-27] MEDS: DAKINS 0.0125%(1/40) 473 ML SOLUTION TP SCH (09:00)
[2019-05-27] MEDS: FERROUS SULFATE (EC) 325 MG TAB PO SCH ×2 (09:00→21:22)
[2019-05-27] MEDS: FLUCONAZOLE 100 MG TAB PO SCH ×2 (09:00→10:47)
[2019-05-27] MEDS: LOSARTAN 25 MG TAB PO SCH ×2 (09:00→21:23)
[2019-05-27] MEDS: NIFEdipine (XL) 60 MG TAB PO SCH (09:00)
[2019-05-27] MEDS: HEPARIN 5,000 UNIT/1 ML VIAL SC SCH ×2 (09:00→21:25)
[2019-05-27] MEDS: FOLIC ACID 1 MG TAB PO SCH (09:00)
[2019-05-27] MEDS: EUCERIN 113 GM CR TOP SCH ×2 (09:00→21:38)
[2019-05-27] MEDS ORDERED: POLYMYXIN/BACITRACIN 1L IRRIG IRR ONE (09:23)
[2019-05-27] MEDS ORDERED: LIDOCAINE 1% (MPF) 30 ML INJ ONE (09:27)
[2019-05-27] MEDS ORDERED: FENTAnyl 50 MCG/ML VIAL IV PRN ×2 (09:30)
[2019-05-27] MEDS ORDERED: LABETALOL HCL 20MG INJ IV PRN (09:30)
[2019-05-27] MEDS ORDERED: HYDROmorphONE 1 MG/5 ML IV SYRINGE IV PRN ×2 (09:30)
[2019-05-27] MEDS ORDERED: hydrALAzine 20 MG INJ IV PRN (09:30)
[2019-05-27] MEDS ORDERED: POLYMYXIN/BACITRACIN 1L IRRIG ONE (10:01)
[2019-05-27] MEDS: Insulin NOVOLOG SS MILD Algorithm (SS with meals and bedtime) SC SCH ×3 (11:30→21:00)
[2019-05-27] MEDS: CEFTRIAXONE 2 GM/50 ML (PMX) 50 ML IVPB SCH (12:13)
[2019-05-27] MEDS: INSULIN GLARGINE [LANTus] (100 UNITS/ML) SYG SC SCH (21:28)
[2019-05-27] MEDS: ONDANSETRON 4 MG INJ IV PRN (21:59)
[2019-05-28] VITALS (23 sets, daily range): BP systolic 167–203; BP diastolic 67–99; PULSE 51–89; RESP 16–20
[2019-05-28] MEDS: ACCUCHECK AT 2AM (Patients on SS coverage) XX SCH (02:00)
[2019-05-28] MEDS: Insulin NOVOLOG SS MILD Algorithm (SS with meals and bedtime) SC SCH ×4 (07:30→20:48)
[2019-05-28] MEDS: HEPARIN 5,000 UNIT/1 ML VIAL SC SCH ×2 (08:12→22:22)
[2019-05-28] MEDS: MULTIVIT/CA CARB/B CMPLX/FA TAB PO SCH (08:13)
[2019-05-28] MEDS: FERROUS SULFATE (EC) 325 MG TAB PO SCH ×2 (08:13→20:36)
[2019-05-28] MEDS: FLUCONAZOLE 100 MG TAB PO SCH (08:13)
[2019-05-28] MEDS: DAKINS 0.0125%(1/40) 473 ML SOLUTION TP SCH (08:13)
[2019-05-28] MEDS: FOLIC ACID 1 MG TAB PO SCH (08:13)
[2019-05-28] MEDS: CALCIUM ACETATE 667 MG CAP PO SCH ×3 (08:13→17:24)
[2019-05-28] MEDS: NIFEdipine (XL) 60 MG TAB PO SCH ×2 (08:14→20:37)
[2019-05-28] MEDS: EUCERIN 113 GM CR TOP SCH ×2 (08:14→20:45)
[2019-05-28] MEDS: METOPROLOL 50 MG TAB PO SCH ×2 (08:15→20:37)
[2019-05-28] MEDS: LOSARTAN 25 MG TAB PO SCH ×2 (08:15→20:36)
[2019-05-28] MEDS: ONDANSETRON 4 MG INJ IV PRN ×2 (08:33→22:34)
[2019-05-28] MEDS: HEPARIN 1000 UNITS/ML 10 ML INJ CATHETER SCH (12:25)
[2019-05-28] MEDS: CEFTRIAXONE 2 GM/50 ML (PMX) 50 ML IVPB SCH (12:40)
[2019-05-28] MEDS: hydrALAzine 20 MG INJ IV PRN (15:06)
[2019-05-29] MEDS: ACCUCHECK AT 2AM (Patients on SS coverage) XX SCH (02:00)
[2019-05-29 02:40] VITALS: BP 168/77; PULSE 84; RESP 16
[2019-05-29] MEDS: hydrALAzine 20 MG INJ IV PRN ×2 (02:56→23:36)
[2019-05-29] MEDS: INSULIN ASPART [NOVOLOG] 3 ML PEN SC SCH ×5 (05:00→20:35)
[2019-05-29] MEDS ORDERED: HYDROCODONE/APAP (5/325) TAB PO ONE (05:00)
[2019-05-29 07:53] VITALS: BP 142/66; PULSE 80; RESP 15
[2019-05-29] MEDS: CALCIUM ACETATE 667 MG CAP PO SCH ×3 (08:41→17:29)
[2019-05-29] MEDS: METOPROLOL 50 MG TAB PO SCH ×2 (08:47→20:30)
[2019-05-29] MEDS: FERROUS SULFATE (EC) 325 MG TAB PO SCH ×2 (08:47→20:30)
[2019-05-29] MEDS: FOLIC ACID 1 MG TAB PO SCH (08:47)
[2019-05-29] MEDS: FLUCONAZOLE 100 MG TAB PO SCH (08:47)
[2019-05-29] MEDS: LOSARTAN 25 MG TAB PO SCH ×2 (08:47→20:31)
[2019-05-29] MEDS: HEPARIN 5,000 UNIT/1 ML VIAL SC SCH ×2 (08:48→20:38)
[2019-05-29] MEDS: NIFEdipine (XL) 60 MG TAB PO SCH ×2 (08:48→20:31)
[2019-05-29] MEDS: MULTIVIT/CA CARB/B CMPLX/FA TAB PO SCH (08:48)
[2019-05-29] MEDS: EUCERIN 113 GM CR TOP SCH ×2 (08:51→20:35)
[2019-05-29] MEDS: DAKINS 0.0125%(1/40) 473 ML SOLUTION TP SCH (08:52)
[2019-05-29] MEDS ORDERED: DEXTROSE 5%-0.45% NACL 1,000 ML IV SCH (10:30)
[2019-05-29] MEDS: CEFTRIAXONE 2 GM/50 ML (PMX) 50 ML IVPB SCH (12:40)
[2019-05-29 14:00] VITALS: BP 152/70; PULSE 84; RESP 16
[2019-05-29] MEDS ORDERED: LIDOCAINE 1% (MDV) 20 ML INJ ONE ×2 (14:35→15:22)
[2019-05-29] MEDS ORDERED: HEPARIN 1000 UNITS/ML 10 ML INJ ONE (15:15)
[2019-05-29] MEDS ORDERED: SOD CHLORIDE 0.9% 500 ML ONE (15:16)
[2019-05-29] MEDS ORDERED: CEFAZOLIN 1 GM/50 ML (PMX) 50 ML IVPB ONE (15:22)
[2019-05-29] MEDS ORDERED: FENTAnyl 50 MCG/ML VIAL ONE (15:22)
[2019-05-29 16:09] VITALS: BP 168/80; PULSE 85; RESP 16
[2019-05-29 19:43] VITALS: BP 167/81; PULSE 85; RESP 17
[2019-05-30] VITALS (20 sets, daily range): BP systolic 143–185; BP diastolic 66–93; PULSE 79–95; RESP 16–18
[2019-05-30] MEDS: HYDROCODONE/APAP (5/325) TAB PO PRN ×2 (00:39→08:44)
[2019-05-30] MEDS: ACCUCHECK AT 2AM (Patients on SS coverage) XX SCH (01:28)
[2019-05-30] MEDS: INSULIN ASPART [NOVOLOG] 3 ML PEN SC SCH ×4 (07:00→20:41)
[2019-05-30] MEDS: CALCIUM ACETATE 667 MG CAP PO SCH ×3 (08:26→17:56)
[2019-05-30] MEDS: MULTIVIT/CA CARB/B CMPLX/FA TAB PO SCH (08:26)
[2019-05-30] MEDS: FLUCONAZOLE 100 MG TAB PO SCH (08:26)
[2019-05-30] MEDS: LOSARTAN 25 MG TAB PO SCH ×2 (08:28→20:41)
[2019-05-30] MEDS: FERROUS SULFATE (EC) 325 MG TAB PO SCH ×2 (08:28→20:41)
[2019-05-30] MEDS: FOLIC ACID 1 MG TAB PO SCH (08:28)
[2019-05-30] MEDS: EUCERIN 113 GM CR TOP SCH ×2 (08:29→20:42)
[2019-05-30] MEDS: HEPARIN 5,000 UNIT/1 ML VIAL SC SCH ×2 (08:40→20:46)
[2019-05-30] MEDS: ONDANSETRON 4 MG INJ IV PRN (08:44)
[2019-05-30] MEDS: METOPROLOL 50 MG TAB PO SCH ×2 (09:00→20:41)
[2019-05-30] MEDS: NIFEdipine (XL) 60 MG TAB PO SCH ×2 (09:00→20:40)
[2019-05-30] MEDS: CEFTRIAXONE 2 GM/50 ML (PMX) 50 ML IVPB SCH (12:35)
[2019-05-30] MEDS: DAKINS 0.0125%(1/40) 473 ML SOLUTION TP SCH (12:44)
[2019-05-30] MEDS ORDERED: HEPARIN 5,000 UNIT/1 ML VIAL CATHETER SCH (19:00)
[2019-05-31] MEDS: ACCUCHECK AT 2AM (Patients on SS coverage) XX SCH (01:35)
[2019-05-31 02:34] VITALS: BP 142/68; PULSE 87; RESP 17
[2019-05-31] MEDS: HYDROCODONE/APAP (5/325) TAB PO PRN ×2 (02:43→11:31)
[2019-05-31] MEDS: INSULIN ASPART [NOVOLOG] 3 ML PEN SC SCH ×4 (07:00→21:00)
[2019-05-31 07:45] VITALS: BP 157/69; PULSE 83; RESP 18
[2019-05-31] MEDS: MULTIVIT/CA CARB/B CMPLX/FA TAB PO SCH (08:23)
[2019-05-31] MEDS: FLUCONAZOLE 100 MG TAB PO SCH (08:23)
[2019-05-31] MEDS: CALCIUM ACETATE 667 MG CAP PO SCH ×3 (08:23→17:00)
[2019-05-31] MEDS: FOLIC ACID 1 MG TAB PO SCH (08:24)
[2019-05-31] MEDS: LOSARTAN 25 MG TAB PO SCH ×2 (08:24→20:27)
[2019-05-31] MEDS: METOPROLOL 50 MG TAB PO SCH ×2 (08:24→20:28)
[2019-05-31] MEDS: FERROUS SULFATE (EC) 325 MG TAB PO SCH ×2 (08:24→20:27)
[2019-05-31] MEDS: NIFEdipine (XL) 60 MG TAB PO SCH ×2 (08:24→20:28)
[2019-05-31] MEDS: HEPARIN 5,000 UNIT/1 ML VIAL SC SCH ×2 (08:26→20:31)
[2019-05-31] MEDS: DOCUSATE SODIUM 100 MG CAP PO SCH (08:39)
[2019-05-31] MEDS: EUCERIN 113 GM CR TOP SCH ×2 (08:39→20:39)
[2019-05-31] MEDS: DAKINS 0.0125%(1/40) 473 ML SOLUTION TP SCH (11:12)
[2019-05-31] MEDS: CEFTRIAXONE 2 GM/50 ML (PMX) 50 ML IVPB SCH (11:31)
[2019-05-31 13:35] VITALS: BP 133/74; PULSE 76; RESP 18
[2019-05-31 19:39] VITALS: BP 161/77; PULSE 87; RESP 18
[2019-06-01] VITALS (19 sets, daily range): BP systolic 132–158; BP diastolic 62–80; PULSE 77–87; RESP 17–20
[2019-06-01] MEDS: ACCUCHECK AT 2AM (Patients on SS coverage) XX SCH (02:00)
[2019-06-01] MEDS: INSULIN ASPART [NOVOLOG] 3 ML PEN SC SCH ×4 (07:00→21:00)
[2019-06-01] MEDS: CALCIUM ACETATE 667 MG CAP PO SCH ×3 (08:00→18:06)
[2019-06-01] MEDS: DOCUSATE SODIUM 100 MG CAP PO SCH (09:00)
[2019-06-01] MEDS: DAKINS 0.0125%(1/40) 473 ML SOLUTION TP SCH ×2 (09:00→14:26)
[2019-06-01] MEDS: MULTIVIT/CA CARB/B CMPLX/FA TAB PO SCH (09:00)
[2019-06-01] MEDS: EUCERIN 113 GM CR TOP SCH ×3 (09:00→21:19)
[2019-06-01] MEDS: FERROUS SULFATE (EC) 325 MG TAB PO SCH ×2 (09:00→21:00)
[2019-06-01] MEDS ORDERED: HEPARIN 1000 UNITS/ML 10 ML INJ CATHETER SCH (10:30)
[2019-06-01] MEDS ORDERED: HEPARIN 5,000 UNIT/1 ML VIAL CATHETER SCH (12:00)
[2019-06-01] MEDS: METOPROLOL 50 MG TAB PO SCH ×2 (13:04→21:18)
[2019-06-01] MEDS: NIFEdipine (XL) 60 MG TAB PO SCH ×2 (13:05→21:19)
[2019-06-01] MEDS: FOLIC ACID 1 MG TAB PO SCH (13:05)
[2019-06-01] MEDS: FLUCONAZOLE 100 MG TAB PO SCH (13:05)
[2019-06-01] MEDS: LOSARTAN 25 MG TAB PO SCH ×2 (13:05→21:19)
[2019-06-01] MEDS: HEPARIN 5,000 UNIT/1 ML VIAL SC SCH ×2 (13:06→21:23)
[2019-06-01] MEDS: CEFTRIAXONE 2 GM/50 ML (PMX) 50 ML IVPB SCH (14:18)
[2019-06-01] MEDS: HYDROCODONE/APAP (5/325) TAB PO PRN (14:25)
[2019-06-02 02:00] VITALS: BP 138/69; PULSE 82; RESP 18
[2019-06-02] MEDS: ACCUCHECK AT 2AM (Patients on SS coverage) XX SCH (02:00)
[2019-06-02] MEDS: INSULIN ASPART [NOVOLOG] 3 ML PEN SC SCH ×4 (07:00→21:00)
[2019-06-02 07:45] VITALS: BP 147/71; PULSE 86; RESP 18
[2019-06-02] MEDS: CALCIUM ACETATE 667 MG CAP PO SCH ×3 (09:29→17:23)
[2019-06-02] MEDS: FERROUS SULFATE (EC) 325 MG TAB PO SCH ×2 (09:29→21:00)
[2019-06-02] MEDS: FLUCONAZOLE 100 MG TAB PO SCH (09:29)
[2019-06-02] MEDS: LOSARTAN 25 MG TAB PO SCH ×2 (09:29→21:19)
[2019-06-02] MEDS: FOLIC ACID 1 MG TAB PO SCH (09:29)
[2019-06-02] MEDS: MULTIVIT/CA CARB/B CMPLX/FA TAB PO SCH (09:30)
[2019-06-02] MEDS: NIFEdipine (XL) 60 MG TAB PO SCH ×2 (09:30→21:27)
[2019-06-02] MEDS: DOCUSATE SODIUM 100 MG CAP PO SCH (09:30)
[2019-06-02] MEDS: METOPROLOL 50 MG TAB PO SCH ×2 (09:30→21:18)
[2019-06-02] MEDS: DAKINS 0.0125%(1/40) 473 ML SOLUTION TP SCH (09:31)
[2019-06-02] MEDS: EUCERIN 113 GM CR TOP SCH ×2 (09:31→21:20)
[2019-06-02] MEDS: HEPARIN 5,000 UNIT/1 ML VIAL SC SCH ×2 (09:34→21:22)
[2019-06-02] MEDS: CEFTRIAXONE 2 GM/50 ML (PMX) 50 ML IVPB SCH (13:14)
[2019-06-02 14:32] VITALS: BP 138/68; PULSE 77; RESP 18
[2019-06-02] MEDS ORDERED: VANCOMYCIN IV PER PHARMACY XX SCH (17:00)
[2019-06-02] MEDS ORDERED: VANCOMYCIN HCL 2 GM in SOD CHLORIDE 0.9% 500 ML IVPB SCH (18:30)
[2019-06-02 20:20] VITALS: BP 127/61; PULSE 79; RESP 16
[2019-06-03] VITALS (18 sets, daily range): BP systolic 131–173; BP diastolic 63–83; PULSE 72–84; RESP 16–18
[2019-06-03] MEDS: HYDROCODONE/APAP (5/325) TAB PO PRN (00:11)
[2019-06-03] MEDS: ACCUCHECK AT 2AM (Patients on SS coverage) XX SCH (02:00)
[2019-06-03] MEDS: INSULIN ASPART [NOVOLOG] 3 ML PEN SC SCH ×2 (07:00→11:30)
[2019-06-03] MEDS: DAKINS 0.0125%(1/40) 473 ML SOLUTION TP SCH (07:43)
[2019-06-03] MEDS: DOCUSATE SODIUM 100 MG CAP PO SCH (08:03)
[2019-06-03] MEDS: FERROUS SULFATE (EC) 325 MG TAB PO SCH (08:03)
[2019-06-03] MEDS: CALCIUM ACETATE 667 MG CAP PO SCH ×2 (08:03→14:10)
[2019-06-03] MEDS: FLUCONAZOLE 100 MG TAB PO SCH (08:03)
[2019-06-03] MEDS: FOLIC ACID 1 MG TAB PO SCH (08:03)
[2019-06-03] MEDS: MULTIVIT/CA CARB/B CMPLX/FA TAB PO SCH (08:03)
[2019-06-03] MEDS: EUCERIN 113 GM CR TOP SCH (08:04)
[2019-06-03] MEDS: LOSARTAN 25 MG TAB PO SCH ×2 (08:04→11:53)
[2019-06-03] MEDS: NIFEdipine (XL) 60 MG TAB PO SCH ×2 (08:04→11:53)
[2019-06-03] MEDS: METOPROLOL 50 MG TAB PO SCH ×2 (08:04→11:53)
[2019-06-03] MEDS: HEPARIN 5,000 UNIT/1 ML VIAL SC SCH (08:18)
[2019-06-03] MEDS ORDERED: HEPARIN 1000 UNITS/ML 10 ML INJ CATHETER SCH (10:00)
[2019-06-04] MEDS ORDERED: [UNRECOGNIZED DRUG - OTHER] XX ONE (05:00)
== END 2019-06-03 17:20 | disposition home health service (06) | DRG 853 ==
LOC: E/R 00:54 → PP2 01:58 → 2NE 05-29 14:31
PROVIDERS: ADMIT Internal Medicine; ATTEND Internal Medicine
PROC: 0JBR0ZZ Excision of Left Foot Subcutaneous Tissue and Fascia, Open Approach (ICD-10-PCS; principal; 2019-05-19 15:00)
PROC: 30233N1 Transfusion of Nonautologous Red Blood Cells into Peripheral Vein, Percutaneous Approach (ICD-10-PCS; 2019-05-20)
PROC: 02H633Z Insertion of Infusion Device into Right Atrium, Percutaneous Approach (ICD-10-PCS; 2019-05-21)
PROC: 0KBW0ZZ Excision of Left Foot Muscle, Open Approach (ICD-10-PCS; 2019-05-23)
PROC: 5A1D70Z Performance of Urinary Filtration, Intermittent, Less than 6 Hours Per Day (ICD-10-PCS; 2019-05-26)
PROC: 0HBNXZZ Excision of Left Foot Skin, External Approach (ICD-10-PCS; 2019-05-27)
PROC: 0JH63XZ Insertion of Tunneled Vascular Access Device into Chest Subcutaneous Tissue and Fascia, Percutaneous Approach (ICD-10-PCS; 2019-05-29)
PROC: 05HM33Z Insertion of Infusion Device into Right Internal Jugular Vein, Percutaneous Approach (ICD-10-PCS; 2019-05-29)
PROC: B513ZZA Fluoroscopy of Right Jugular Veins, Guidance (ICD-10-PCS; 2019-05-29)
PROC: 02PAX3Z Removal of Infusion Device from Heart, External Approach (ICD-10-PCS; 2019-05-29)
DX: A41.9 Sepsis, unspecified organism (principal); N18.6 End stage renal disease; N17.0 Acute kidney failure with tubular necrosis; D62 Acute posthemorrhagic anemia; Z68.42 Body mass index [BMI] 45.0-49.9, adult; L02.612 Cutaneous abscess of left foot; L03.116 Cellulitis of left lower limb; E87.2 Acidosis; B37.49 Other urogenital candidiasis; I12.0 Hypertensive chronic kidney disease with stage 5 chronic kidney disease or end stage renal disease; J44.9 Chronic obstructive pulmonary disease, unspecified; D63.1 Anemia in chronic kidney disease; E66.01 Morbid (severe) obesity due to excess calories; E11.621 Type 2 diabetes mellitus with foot ulcer; L97.529 Non-pressure chronic ulcer of other part of left foot with unspecified severity; E11.628 Type 2 diabetes mellitus with other skin complications; R19.7 Diarrhea, unspecified; K80.20 Calculus of gallbladder without cholecystitis without obstruction; E11.42 Type 2 diabetes mellitus with diabetic polyneuropathy; E11.22 Type 2 diabetes mellitus with diabetic chronic kidney disease; Z79.84 Long term (current) use of oral hypoglycemic drugs; Z89.422 Acquired absence of other left toe(s)
CPT/HCPCS: 36415; 36430; 36556; 71045; 76775; 76942; 78806; 80048; 80053; 80061; 81001; 81003; 81025; 82550; 82595; 82728; 82962; 83036; 83540; 83605; 83735; 84100; 84132; 84145; 84484; 85014; 85018; 85025; 85049; 85610; 85651; 85670; 85730; 86021; 86038; 86140; 86160; 86226; 86430; 86703; 86704; 86706; 86709; 86803; 86850; 86900; 86901; 86920; 87070; 87075; 87086; 87102; 87116; 87340; 90935; 93005; 93970; 96374; 97110; 97161; 97530; A9570; C1752; J0360; J0690; J0692; J0696; J1170; J1644; J1815; J1940; J2175; J2250; J2270; J2405; J2543; J2765; J2795; J2916; J3010; J3370; J7030; J7040; J7042; P9016; Q5105; Q5106